=== PATIENT | female | born 1995 | race Caucasian/White ===

== ENCOUNTER 2017-01-22 22:51 | Emergency (ER) | payer SELFPAY ==
[2017-01-22] MEDS ORDERED: Ketorolac 60 MG/2 ML SDV IM ONE (23:40)
--- NOTE | 2017-01-22 23:45 | EDM.PDOC ---
ED HPI GENERAL MEDICAL PROBLEM - General Chief Complaint: Headache Stated Complaint: HEADACHES Time Seen by Provider: 01/22/17 23:30 - History of Present Illness INITIAL COMMENTS - FREE TEXT/NARRATIVE: HISTORY AND PHYSICAL: History of present illness: Patient is a 22-year-old female who presents with a loosening history of headaches that come and go for which she is seeing her family doctor in [place] for and used to get him ibuprofen and no presents with a temporal headache that has been ongoing for the last few days. 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 She has no visual changes. Patient says oftentimes she'll take a nap and the headache will get better but it did not happen today. The patient took nothing [id number] for pain today. She has no local provider. She denies . She says she got over her period about a week ago. She says that in the past the headaches don't follow any pattern she has no aura and no association with her menstrual cycle. Review of systems: As per history of present illness and below otherwise all systems reviewed and negative. Past medical history: As per history of present illness and as reviewed below otherwise noncontributory. Surgical history: As per history of present illness and as reviewed below otherwise noncontributory. Social history: No reported history of drug or alcohol abuse. Family history: As per history of present illness and as reviewed below otherwise noncontributory. Physical exam: Gen.: Well-developed well-nourished female who is nontoxic and vital signs of been reviewed by me HEENT: Atraumatic, normocephalic, negative for conjunctival pallor or scleral icterus, mucous membranes moist, throat clear, neck supple, nontender, trachea midline. There is tenderness at palpation of the temporal area and the frontal and maxillary area without any palpable deformities. There is no nuchal rigidity or cervical adenopathy. Lungs: Clear to auscultation, breath sounds equal bilaterally, chest nontender. Heart: S1S2, regular rate and rhythm no overt murmurs Abdomen: Soft, nondistended, nontender. NABS. Pelvis: Deferred Genitourinary: Deferred. Rectal: Deferred. Extremities: Atraumatic, negative for cords or calf pain. Neurovascular unremarkable. Neuro: Awake, alert, oriented. Cranial nerves II through XII unremarkable. Cerebellum unremarkable. Motor and sensory unremarkable throughout. Exam nonfocal. Diagnostics: [] Therapeutics: Toradol I discussed with the patient as the headache is not terribly severe and is not associated with nausea vomiting or any recent trauma it we would treat the symptomatology and I would refer her to our clinic for further evaluation. I asked her to start a journal of her headaches and to return to ER if the symptoms worsen or evolve Impression: Headache Definitive disposition and diagnosis as appropriate pending reevaluation and review of above. Headache Pain Score (Numeric/FACES): 8 - Related Data Allergies Allergy/AdvReac Type Severity Reaction Status Date / Time almond Allergy Rash Verified 01/22/17 23:19 peanut Allergy Swelling Verified 01/22/17 23:18 Home Meds: Home Meds . [No Known Home Meds] 01/22/17 [History] Past Medical History - Past Health History Medical/Surgical History: Denies Medical/Surgical History Social & Family History - Tobacco Use Smoking Status *Q: Never Smoker Second Hand Smoke Exposure: No - Caffeine Use Caffeine Use: Reports: None - Recreational Drug Use Recreational Drug Use: No ED ROS GENERAL - Review of Systems Review Of Systems: ROS reveals no pertinent complaints other than HPI. ED EXAM, GENERAL - Physical Exam Exam: See Below (See dictation) Course - Vital Signs Last Recorded V/S: Last Vital Signs Temp 36.5 C 01/22/17 23:13 Pulse 103 H 01/22/17 23:13 Resp 18 01/22/17 23:13 BP 126/77 01/22/17 23:13 Pulse Ox 98 01/22/17 23:13 - Orders/Labs/Meds Meds: Medications Discontinued Medications Generic Name Dose Route Start Last Admin Trade Name Freq PRN Reason Stop Dose Admin Ketorolac Tromethamine 60 mg 01/22/17 23:40 Toradol IM 01/22/17 23:41 ONETIME ONE Departure - Departure Time of Disposition: 23:44 Disposition: Home, Self-Care 01 Condition: Good Clinical Impression: Headache Qualifiers: Headache type: unspecified Headache chronicity pattern: acute headache Intractability: not intractable Qualified Code(s): R51 - Headache - Discharge Information Referrals: PCP,None [Primary Care Provider] - Additional Instructions: The following information is given to patients seen in the emergency department who are being discharged to home. This information is to outline your options for follow-up care. We provide all patients seen in our emergency department with a follow-up referral. The need for follow-up, as well as the timing and circumstances, are variable depending upon the specifics of your emergency department visit. If you don't have a primary care physician on staff, we will provide you with a referral. We always advise you to contact your personal physician following an emergency department visit to inform them of the circumstance of the visit and for follow-up with them and/or the need for any referrals to a consulting specialist. The emergency department will also refer you to a specialist when appropriate. This referral assures that you have the opportunity for followup care with a specialist. All of these measure are taken in an effort to provide you with optimal care, which includes your followup. Under all circumstances we always encourage you to contact your private physician who remains a resource for coordinating your care. When calling for followup care, please make the office aware that this follow-up is from your recent emergency room visit. If for any reason you are refused follow-up, please contact the [facility] emergency department at and ask to speak to the emergency department charge nurse. [facility] Primary care- Internal Medicine and Family [address] [address] Please call the clinic tomorrow to get a follow-up appointment as we discussed. Please use medications as prescribed from [facility], Naprosyn and tramadol, rest and hydrate. Return to ER as needed and as discussed
== END 2017-01-22 23:55 | disposition home or self-care (01) ==
LOC: MW.ED 22:51
DX: R51 Headache (principal); Z91.010 Allergy to peanuts; Z91.018 Allergy to other foods
CPT/HCPCS: 96372; 99283; J1885; 99282

== ENCOUNTER 2017-03-22 18:38 | Emergency (ER) | payer SELFPAY ==
--- NOTE | 2017-03-22 19:42 | EDM.PDOC ---
ED HPI GENERAL MEDICAL PROBLEM - General Chief Complaint: Abdominal Pain Stated Complaint: ABDOMINAL PAIN Time Seen by Provider: 03/22/17 19:31 - History of Present Illness INITIAL COMMENTS - FREE TEXT/NARRATIVE: HISTORY AND PHYSICAL: History of present illness: The patient is a 22-year-old female who presents with right lower quadrant pain that started last evening. Patient says it started suddenly while she was having sexual intercourse and since that time she has not had any fevers chills flank pain and urinary complaints or vaginal bleeding or vaginal spotting. She' s not had anorexia and has been eating normally. The patient has not had any vomiting or diarrhea and has no gynecologic history that she is aware of. She has no STD risks. Patient says the pain has been persistent and it waxes and wanes in intensity and she has not taken much for the pain [id number]. Patient says the pain does not radiate and is only in the right lower quadrant. Patient says she has had normal bowel movements and she has had regular periods. Review of systems: As per history of present illness and below otherwise all systems reviewed and negative. Past medical history: As per history of present illness and as reviewed below otherwise noncontributory. Surgical history: As per history of present illness and as reviewed below otherwise noncontributory. Social history: No reported history of drug or alcohol abuse. Family history: As per history of present illness and as reviewed below otherwise noncontributory. Physical exam: Gen.: Well-developed well-nourished female who is nontoxic and speaking clearly in the ED. Vital signs were noted by me. HEENT: Atraumatic, normocephalic, negative for conjunctival pallor or scleral icterus, mucous membranes moist, throat clear, neck supple, nontender, trachea midline. Lungs: Clear to auscultation, breath sounds equal bilaterally, chest nontender. Heart: S1S2, regular rate and rhythm no overt murmurs Abdomen: Soft, nondistended, with mild tenderness to moderate tenderness on deep palpation in the right lower quadrant without rebound or guarding. The remainder of the abdomen is without tenderness on palpation and the bowel sounds are normoactive Negative for costovertebral tenderness. Pelvis: Stable nontender. Genitourinary: Deferred. Rectal: Deferred. Extremities: Atraumatic, negative for cords or calf pain. Neurovascular unremarkable. Neuro: Awake, alert, oriented. Cranial nerves II through XII unremarkable. Cerebellum unremarkable. Motor and sensory unremarkable throughout. Exam nonfocal. Diagnostics: CBC CMP UA UCG pelvic ultrasound Therapeutics: Toradol if UCG negative There is some delays with getting the ultrasound performed but I have received those results and the patient is aware of them. She is also aware of all other testing results. She said that the Toradol has helped her pain and it is pretty much gone. I've offered her CT scan as there are no significant findings to explain her right lower abdominal pain and her appendix is still an option although her history and testing to this point does not support that. The patient would like to defer the CAT scan at that time and return if the pain returns or worsens. I've given her reasons to return to the ED and have advised her to return if any of those things occur. She is aware of my concerns and accepts them but would like to go. Impression: Right lower quadrant pain etiology unclear improved Definitive disposition and diagnosis as appropriate pending reevaluation and review of above. Right Lower Abdomen Pain Score (Numeric/FACES): 8 - Related Data Allergies Allergy/AdvReac Type Severity Reaction Status Date / Time almond Allergy Rash Verified 03/22/17 19:24 peanut Allergy Swelling Verified 03/22/17 19:24 Home Meds: Home Meds . [No Known Home Meds] 01/22/17 [History] Past Medical History - Past Health History Medical/Surgical History: Denies Medical/Surgical History Musculoskeletal History: Reports: Other (See Below) Other Musculoskeletal History: L knee fluid removal Social & Family History - Tobacco Use Smoking Status *Q: Never Smoker Second Hand Smoke Exposure: No - Caffeine Use Caffeine Use: Reports: Soda - Recreational Drug Use Recreational Drug Use: Yes Drug Use in Last 12 Months: Yes Recreational Drug Type: Reports: Marijuana/Hashish Recreational Drug Use Frequency: Daily Recreational Drug Last Use: 03/20 ED ROS GENERAL - Review of Systems Review Of Systems: ROS reveals no pertinent complaints other than HPI. ED EXAM, GENERAL - Physical Exam Exam: See Below (See dictation) Course - Vital Signs Last Recorded V/S: Last Vital Signs Temp 36.2 C 03/22/17 19:22 Pulse 88 03/22/17 19:22 Resp 12 03/22/17 19:22 BP 119/74 03/22/17 19:22 Pulse Ox 98 03/22/17 19:22 - Orders/Labs/Meds Orders: Active Orders 24 hr Category Date Time Status Pelvis Non OB Comp [US] Stat Exams 03/22/17 19:39 Taken Labs: Laboratory Tests 03/22/17 03/22/17 03/22/17 Range/Units 19:52 19:52 20:20 WBC 7.29 (4.0-11.0) K/uL RBC 4.73 (4.30-5.90) M/uL Hgb 13.5 (12.0-16.0) g/dL Hct 39.7 (36.0-46.0) % MCV 83.9 (80.0-98.0) fL MCH 28.5 (27.0-32.0) pg MCHC 34.0 (31.0-37.0) g/dL RDW Std Deviation 38.7 (28.0-62.0) fl RDW Coeff of Robert 13 (11.0-15.0) % Plt Count 329 (150-400) K/uL MPV 10.40 (7.40-12.00) fL Neut % (Auto) 55.5 (48.0-80.0) % Lymph % (Auto) 38.1 (16.0-40.0) % [place] % (Auto) 5.5 (0.0-15.0) % Eos % (Auto) 0.4 (0.0-7.0) % Baso % (Auto) 0.5 (0.0-1.5) % Neut # (Auto) 4.0 (1.4-5.7) K/uL Lymph # (Auto) 2.8 H (0.6-2.4) K/uL [place] # (Auto) 0.4 (0.0-0.8) K/uL Eos # (Auto) 0.0 (0.0-0.7) K/uL Baso # (Auto) 0.0 (0.0-0.1) K/uL Nucleated RBC % 0.0 /100WBC Nucleated RBCs # 0 K/uL Sodium (136-146) mmol/L Potassium (3.5-5.1) mmol/L Chloride (98-110) mmol/L Carbon Dioxide (21-31) mmol/L BUN (6.0-23.0) mg/dL Creatinine (0.6-1.5) mg/dL Est Cr Clr Drug Dosing mL/min Estimated GFR (MDRD) ml/min Glucose (60-110) mg/dL Calcium (8.8-10.8) mg/dL Total Bilirubin (0.1-1.5) mg/dL AST (5-40) IU/L ALT (8-54) IU/L Alkaline Phosphatase (40-150) Total Protein (6.0-8.0) g/dL Albumin (3.5-5.0) g/dL Globulin (2.0-3.5) g/dL Albumin/Globulin Ratio (1.3-2.8) Urine Color YELLOW Urine Appearance CLEAR Urine pH 6.0 (5.0-8.0) Ur Specific [place] <= 1.005 (1.001-1.035) Urine Protein NEGATIVE (NEGATIVE) mg/dL Urine Glucose (UA) NEGATIVE (NEGATIVE) mg/dL Urine Ketones 15 H (NEGATIVE) mg/dL Urine Occult Blood NEGATIVE (NEGATIVE) Urine Nitrite NEGATIVE (NEGATIVE) Urine Bilirubin NEGATIVE (NEGATIVE) Urine Urobilinogen 0.2 (<2.0) EU/dL Ur Leukocyte Esterase NEGATIVE (NEGATIVE) Urine RBC 0-1 (0-2/HPF) Urine WBC 0-1 (0-5/HPF) Ur Epithelial Cells RARE (NONE-FEW) Urine Bacteria RARE (NEGATIVE) Urine HCG, Qual NEGATIVE (NEGATIVE) 03/22/17 Range/Units 20:20 WBC (4.0-11.0) K/uL RBC (4.30-5.90) M/uL Hgb (12.0-16.0) g/dL Hct (36.0-46.0) % MCV (80.0-98.0) fL MCH (27.0-32.0) pg MCHC (31.0-37.0) g/dL RDW Std Deviation (28.0-62.0) fl RDW Coeff of Robert (11.0-15.0) % Plt Count (150-400) K/uL MPV (7.40-12.00) fL Neut % (Auto) (48.0-80.0) % Lymph % (Auto) (16.0-40.0) % [place] % (Auto) (0.0-15.0) % Eos % (Auto) (0.0-7.0) % Baso % (Auto) (0.0-1.5) % Neut # (Auto) (1.4-5.7) K/uL Lymph # (Auto) (0.6-2.4) K/uL [place] # (Auto) (0.0-0.8) K/uL Eos # (Auto) (0.0-0.7) K/uL Baso # (Auto) (0.0-0.1) K/uL Nucleated RBC % /100WBC Nucleated RBCs # K/uL Sodium 138 (136-146) mmol/L Potassium 3.6 (3.5-5.1) mmol/L Chloride 104 (98-110) mmol/L Carbon Dioxide 24 (21-31) mmol/L BUN 9 (6.0-23.0) mg/dL Creatinine 0.7 (0.6-1.5) mg/dL Est Cr Clr Drug Dosing 101.39 mL/min Estimated GFR (MDRD) > 60.0 ml/min Glucose 74 (60-110) mg/dL Calcium 9.5 (8.8-10.8) mg/dL Total Bilirubin 0.5 (0.1-1.5) mg/dL AST 17 (5-40) IU/L ALT 13 (8-54) IU/L Alkaline Phosphatase 59 (40-150) Total Protein 7.1 (6.0-8.0) g/dL Albumin 4.4 (3.5-5.0) g/dL Globulin 2.7 (2.0-3.5) g/dL Albumin/Globulin Ratio 1.6 (1.3-2.8) Urine Color Urine Appearance Urine pH (5.0-8.0) Ur Specific [place] (1.001-1.035) Urine Protein (NEGATIVE) mg/dL Urine Glucose (UA) (NEGATIVE) mg/dL Urine Ketones (NEGATIVE) mg/dL Urine Occult Blood (NEGATIVE) Urine Nitrite (NEGATIVE) Urine Bilirubin (NEGATIVE) Urine Urobilinogen (<2.0) EU/dL Ur Leukocyte Esterase (NEGATIVE) Urine RBC (0-2/HPF) Urine WBC (0-5/HPF) Ur Epithelial Cells (NONE-FEW) Urine Bacteria (NEGATIVE) Urine HCG, Qual (NEGATIVE) Meds: Medications Discontinued Medications Generic Name Dose Route Start Last Admin Trade Name Rosa PRN Reason Stop Dose Admin Ketorolac Tromethamine 60 mg 03/22/17 20:17 03/22/17 20:34 Toradol IM 03/22/17 20:18 60 mg ONETIME ONE Administration Departure - Departure Time of Disposition: 22:30 Disposition: Home, Self-Care 01 Condition: Good Clinical Impression: Abdominal pain Qualifiers: Abdominal location: right lower quadrant Qualified Code(s): R10.31 - Right lower quadrant pain - Discharge Information Referrals: PCP,None [Primary Care Provider] - Forms: ED Department Discharge Additional Instructions: The following information is given to patients seen in the emergency department who are being discharged to home. This information is to outline your options for follow-up care. We provide all patients seen in our emergency department with a follow-up referral. The need for follow-up, as well as the timing and circumstances, are variable depending upon the specifics of your emergency department visit. If you don't have a primary care physician on staff, we will provide you with a referral. We always advise you to contact your personal physician following an emergency department visit to inform them of the circumstance of the visit and for follow-up with them and/or the need for any referrals to a consulting specialist. The emergency department will also refer you to a specialist when appropriate. This referral assures that you have the opportunity for followup care with a specialist. All of these measure are taken in an effort to provide you with optimal care, which includes your followup. Under all circumstances we always encourage you to contact your private physician who remains a resource for coordinating your care. When calling for followup care, please make the office aware that this follow-up is from your recent emergency room visit. If for any reason you are refused follow-up, please contact the [facility] emergency department at and ask to speak to the emergency department charge nurse. [facility] Primary care- Internal Medicine and Family [address] [address] Push fluids rest and try to avoid caffeinated products junk foods and fast foods. Please return to ER as needed and as discussed. These call and make a follow-up appointment with of our providers in the clinic and use over-the- counter Tylenol or ibuprofen for pain. - My Orders Last 24 Hours: My Active Orders 03/22/17 19:39 Pelvis Non OB Comp [US] Stat - Assessment/Plan Last 24 Hours: My Active Orders 03/22/17 19:39 Pelvis Non OB Comp [US] Stat
[2017-03-22] MEDS ORDERED: Ketorolac 60 MG/2 ML SDV IM ONE (20:17)
[2017-03-22 20:59] LABS: CHLORIDE,CL 104 mmol/L (98-110); SODIUM,NA 138 mmol/L (136-146)
--- NOTE | 2017-03-23 16:10 | US ---
EXAM DATE: 03/22/17 PATIENT'S AGE: 22 Patient: RANDY BOWSER Facility: [place], [place] Site . Site : 1997 Study: US Pelvis [id number] 9:56:33 PM Ordering Physician: Danni Preston Final Report: INDICATION: Right lower quadrant pain TECHNIQUE: Ultrasound pelvis transvaginal. Endovaginal imaging was performed to better visualize the endometrium and ovaries. Real-time sotelo scale sonographic images with spectral and color Doppler imaging of the ovaries were obtained. COMPARISON: None FINDINGS: Uterus: 7.1 x 2.6 x 4 cm. Normal echotexture of the myometrium noted with no masses are seen. Endometrium: 4 mm. No sign of endometrial mass or fluid present. Right ovary: 2.9 x 2.3 x 2.6 cm. The right ovary is normal in appearance and echotexture. Arterial blood flow seen in the right ovary. Left ovary: 2.9 x 2 x 2.7 cm. The left ovary is normal in appearance and echotexture. Arterial blood flow is seen in the left ovary. Cul-de-sac: Trace pelvic ascites is noted. IMPRESSION: 1. Unremarkable pelvic ultrasound. Dictated by Monroe Moe MD @ 03/22/2017 10:19:44 PM Dictated by: Monroe Moe MD @ 03/22/2017 22:19:50 (Electronic Signature) Report Signed by Proxy. YULI
== END 2017-03-22 22:40 | disposition home or self-care (01) ==
LOC: MW.ED 18:38
DX: R10.31 Right lower quadrant pain (principal); Z91.010 Allergy to peanuts; Z91.018 Allergy to other foods
CPT/HCPCS: 36415; 76856; 80053; 81001; 81025; 85025; 96372; 99284; J1885

== ENCOUNTER 2017-09-24 10:03 | Emergency (ER) | payer SELFPAY ==
[2017-09-24] MEDS ORDERED: Sodium Chloride 0.9% 10 ML Syringe FLUSH PRN (10:11)
[2017-09-24] MEDS ORDERED: Sodium Chloride 0.9% 2.5 ML Syringe FLUSH PRN (10:11)
[2017-09-24] MEDS ORDERED: Sodium Chloride 0.9% 1,000 ML IV ONE (10:11)
--- NOTE | 2017-09-24 10:21 | EDM.PDOC ---
ED HPI GENERAL MEDICAL PROBLEM - General Chief Complaint: Gastrointestinal Problem Stated Complaint: DEHYDRATION Time Seen by Provider: 09/24/17 10:19 Source of Information: Reports: Patient History Limitations: Reports: No Limitations - History of Present Illness INITIAL COMMENTS - FREE TEXT/NARRATIVE: HISTORY AND PHYSICAL: History of present illness: Patient is a 22-year-old female who presents to the ED today for vomiting, diarrhea, and chills. She states that all of these symptoms started this morning. She states that she hasn't been able to eat or drink today. She has had 2-3 episodes of vomiting, and one episode of green watery diarrhea. Furthermore, she states that she starting to feel like she has a fever and chills, although she has not checked her temperature at home. Also, she states that she feels like she has a sore throat and has tried cough drops without relief. She states that she has had right upper quadrant abdominal pain for the past week or so that has comes and goes and she states that it seems to be associated with her nausea. She denies cough, shortness of breath, wheezing, chest pressure, or history of heart/lung problems. She denies nasal congestion, ear pain, blood in her stool, increase in flatulence, bloating, headache, or syncope. Review of systems: As per history of present illness and below otherwise all systems reviewed and negative. Past medical history: As per history of present illness and as reviewed below otherwise noncontributory. Surgical history: Denies surgical history Social history: No reported history of drug or alcohol abuse. Family history: As per history of present illness and as reviewed below otherwise noncontributory. Physical exam: General: Patient is lying comfortably on the exam table, shivering but in no acute distress. HEENT: Atraumatic, normocephalic, pupils reactive, negative for conjunctival pallor or scleral icterus, mucous membranes moist, throat clear, neck supple, nontender, trachea midline. Lungs: Clear to auscultation, breath sounds equal bilaterally, chest nontender. Heart: S1S2, regular, negative for clicks, rubs. Abdomen: Mild to moderate pain of the right upper quadrant and epigastric area with guarding to light and deep palpation. Soft, nondistended. Negative for masses or hepatosplenomegaly. Negative for costovertebral tenderness. Negative rebound tenderness. Pelvis: Stable nontender. Genitourinary: Deferred. Rectal: Deferred. Extremities: Atraumatic, Neurovascular unremarkable. Neuro: Awake, alert, oriented. Cranial nerves II through XII unremarkable. Cerebellum unremarkable. Motor and sensory unremarkable throughout. Exam nonfocal. Notes: Diagnostics: CBC, CMP, UA, Rapid strep, hCG Abdomen/pelvis CT Therapeutics: IV normal saline IV zofran 4mg IV famotidine 20mg Impression: Viral gastroenteritis Plan: #1 Drink plenty of small sips of fluid throughout the day, bland food as tolerated #2 Take zofran as needed for nausea/vomiting #3 Follow up with primary care provider #4 Return to ED as needed as discussed. Definitive disposition and diagnosis as appropriate pending reevaluation and review of above. l Abdominal Pain Score (Numeric/FACES): 7 - Related Data Allergies Allergy/AdvReac Type Severity Reaction Status Date / Time almond Allergy Rash Verified 09/24/17 10:14 peanut Allergy Swelling Verified 09/24/17 10:14 Home Meds: Home Meds . [No Known Home Meds] 01/22/17 [History] Past Medical History - Past Health History Medical/Surgical History: Denies Medical/Surgical History Musculoskeletal History: Reports: Other (See Below) Other Musculoskeletal History: L knee fluid removal Social & Family History - Family History Family Medical History: Noncontributory - Tobacco Use Smoking Status *Q: Never Smoker - Caffeine Use Caffeine Use: Reports: None - Recreational Drug Use Recreational Drug Use: Yes Recreational Drug Type: Reports: Marijuana/Hashish Other Recreational Drug Type: 2x daily use ED ROS GENERAL - Review of Systems Review Of Systems: ROS reveals no pertinent complaints other than HPI. ED EXAM, GI/ABD - Physical Exam Exam: See Below (See dictation) Course - Vital Signs Last Recorded V/S: Last Vital Signs Temp 36.7 C 09/24/17 12:28 Pulse 99 09/24/17 12:28 Resp 18 09/24/17 12:28 BP 122/76 09/24/17 12:28 Pulse Ox 92 L 09/24/17 12:28 - Orders/Labs/Meds Orders: Active Orders 24 hr Category Date Time Status CULTURE STREP A CONFIRMATION [RM] Stat Lab 09/24/17 10:45 Results HCG QUALITATIVE,URINE [URCHEM] Stat Lab 09/24/17 10:16 Ordered STREP SCRN A RAPID W CULT CONF [RM] Stat Lab 09/24/17 10:45 Ordered UA W/MICROSCOPIC [URIN] Stat Lab 09/24/17 10:16 Ordered Sodium Chloride 0.9% [Saline Flush] Med 09/24/17 10:11 Active 10 ml FLUSH ASDIRECTED PRN Sodium Chloride 0.9% [Saline Flush] Med 09/24/17 10:11 Active 2.5 ml FLUSH ASDIRECTED PRN Saline Lock Insert [OM.PC] Stat Oth 09/24/17 10:11 Ordered Medication Orders Sodium Chloride (Saline Flush) 10 ml FLUSH ASDIRECTED PRN PRN Reason: Keep Vein Open Last Admin: 09/24/17 10:22 Dose: 10 ml Sodium Chloride (Saline Flush) 2.5 ml FLUSH ASDIRECTED PRN PRN Reason: Keep Vein Open Last Admin: 09/24/17 10:22 Dose: 2.5 ml Labs: Laboratory Tests 09/24/17 09/24/17 09/24/17 Range/Units 10:16 10:16 10:23 WBC 9.80 (4.0-11.0) K/uL RBC 5.06 (4.30-5.90) M/uL Hgb 14.7 (12.0-16.0) g/dL Hct 42.6 (36.0-46.0) % MCV 84.2 (80.0-98.0) fL MCH 29.1 (27.0-32.0) pg MCHC 34.5 (31.0-37.0) g/dL RDW Std Deviation 39.3 (28.0-62.0) fl RDW Coeff of Robert 13 (11.0-15.0) % Plt Count 325 (150-400) K/uL MPV 10.50 (7.40-12.00) fL Neut % (Auto) 64.4 (48.0-80.0) % Lymph % (Auto) 28.5 (16.0-40.0) % Stanly % (Auto) 5.9 (0.0-15.0) % Eos % (Auto) 0.9 (0.0-7.0) % Baso % (Auto) 0.3 (0.0-1.5) % Neut # (Auto) 6.3 H (1.4-5.7) K/uL Lymph # (Auto) 2.8 H (0.6-2.4) K/uL Stanly # (Auto) 0.6 (0.0-0.8) K/uL Eos # (Auto) 0.1 (0.0-0.7) K/uL Baso # (Auto) 0.0 (0.0-0.1) K/uL Nucleated RBC % 0.0 /100WBC Nucleated RBCs # 0 K/uL Sodium (136-145) mmol/L Potassium (3.5-5.1) mmol/L Chloride (98-107) mmol/L Carbon Dioxide (21.0-32.0) mmol/L BUN (7.0-18.0) mg/dL Creatinine (0.6-1.0) mg/dL Est Cr Clr Drug Dosing mL/min Estimated GFR (MDRD) ml/min Glucose (74-106) mg/dL Calcium (8.5-10.1) mg/dL Total Bilirubin (0.2-1.0) mg/dL AST (15-37) IU/L ALT (14-63) IU/L Alkaline Phosphatase (46-116) U/L Total Protein (6.4-8.2) g/dL Albumin (3.4-5.0) g/dL Globulin (2.0-3.5) g/dL Albumin/Globulin Ratio (1.3-2.8) Lipase (73-393) U/L Urine Color YELLOW Urine Appearance CLEAR Urine pH 6.0 (5.0-8.0) Ur Specific [place] 1.020 (1.001-1.035) Urine Protein NEGATIVE (NEGATIVE) mg/dL Urine Glucose (UA) NEGATIVE (NEGATIVE) mg/dL Urine Ketones 40 H (NEGATIVE) mg/dL Urine Occult Blood NEGATIVE (NEGATIVE) Urine Nitrite NEGATIVE (NEGATIVE) Urine Bilirubin NEGATIVE (NEGATIVE) Urine Urobilinogen 0.2 (<2.0) EU/dL Ur Leukocyte Esterase NEGATIVE (NEGATIVE) Urine RBC 0-2 (0-2/HPF) Urine WBC 0-2 (0-5/HPF) Ur Epithelial Cells MANY (NONE-FEW) Urine Bacteria FEW (NEGATIVE) Urine Mucus MODERATE (NONE-MOD) Urine HCG, Qual NEGATIVE (NEGATIVE) 07/16/18 Range/Units 10:23 WBC (4.0-11.0) K/uL RBC (4.30-5.90) M/uL Hgb (12.0-16.0) g/dL Hct (36.0-46.0) % MCV (80.0-98.0) fL MCH (27.0-32.0) pg MCHC (31.0-37.0) g/dL RDW Std Deviation (28.0-62.0) fl RDW Coeff of Robert (11.0-15.0) % Plt Count (150-400) K/uL MPV (7.40-12.00) fL Neut % (Auto) (48.0-80.0) % Lymph % (Auto) (16.0-40.0) % Stanly % (Auto) (0.0-15.0) % Eos % (Auto) (0.0-7.0) % Baso % (Auto) (0.0-1.5) % Neut # (Auto) (1.4-5.7) K/uL Lymph # (Auto) (0.6-2.4) K/uL Stanly # (Auto) (0.0-0.8) K/uL Eos # (Auto) (0.0-0.7) K/uL Baso # (Auto) (0.0-0.1) K/uL Nucleated RBC % /100WBC Nucleated RBCs # K/uL Sodium 138 (136-145) mmol/L Potassium 3.4 L (3.5-5.1) mmol/L Chloride 100 (98-107) mmol/L Carbon Dioxide 26.4 (21.0-32.0) mmol/L BUN 9 (7.0-18.0) mg/dL Creatinine 0.8 (0.6-1.0) mg/dL Est Cr Clr Drug Dosing 88.72 mL/min Estimated GFR (MDRD) > 60.0 ml/min Glucose 107 H (74-106) mg/dL Calcium 9.1 (8.5-10.1) mg/dL Total Bilirubin 0.5 (0.2-1.0) mg/dL AST 16 (15-37) IU/L ALT 19 (14-63) IU/L Alkaline Phosphatase 63 (46-116) U/L Total Protein 7.9 (6.4-8.2) g/dL Albumin 4.3 (3.4-5.0) g/dL Globulin 3.6 H (2.0-3.5) g/dL Albumin/Globulin Ratio 1.2 L (1.3-2.8) Lipase 74 (73-393) U/L Urine Color Urine Appearance Urine pH (5.0-8.0) Ur Specific [place] (1.001-1.035) Urine Protein (NEGATIVE) mg/dL Urine Glucose (UA) (NEGATIVE) mg/dL Urine Ketones (NEGATIVE) mg/dL Urine Occult Blood (NEGATIVE) Urine Nitrite (NEGATIVE) Urine Bilirubin (NEGATIVE) Urine Urobilinogen (<2.0) EU/dL Ur Leukocyte Esterase (NEGATIVE) Urine RBC (0-2/HPF) Urine WBC (0-5/HPF) Ur Epithelial Cells (NONE-FEW) Urine Bacteria (NEGATIVE) Urine Mucus (NONE-MOD) Urine HCG, Qual (NEGATIVE) Meds: Medications Generic Name Dose Route Start Last Admin Trade Name Rosa PRN Reason Stop Dose Admin Sodium Chloride 10 ml 09/24/17 10:11 09/24/17 10:22 Saline Flush FLUSH 10 ml ASDIRECTED PRN Administration Keep Vein Open Sodium Chloride 2.5 ml 09/24/17 10:11 09/24/17 10:22 Saline Flush FLUSH 2.5 ml ASDIRECTED PRN Administration Keep Vein Open Discontinued Medications Generic Name Dose Route Start Last Admin Trade Name Rosa PRN Reason Stop Dose Admin Famotidine 20 mg 09/24/17 12:24 Pepcid IVPUSH 09/24/17 12:25 ONETIME ONE Sodium Chloride 1,000 mls @ 999 mls/hr 09/24/17 10:11 09/24/17 10:22 Normal Saline IV 09/24/17 11:11 999 mls/hr STAT ONE Administration Iopamidol 72 ml 09/24/17 11:32 09/24/17 11:33 Isovue Multipack-370 (76%) IVPUSH 09/24/17 11:33 72 ml ONETIME STA Administration Ondansetron HCl 4 mg 09/24/17 11:25 09/24/17 12:01 Zofran IVPUSH 09/24/17 11:26 4 mg ONETIME ONE Administration Departure - Departure Time of Disposition: 12:36 Disposition: Home, Self-Care 01 Condition: Good Clinical Impression: Viral gastroenteritis - Discharge Information Referrals: PCP,None [Primary Care Provider] - Forms: ED Department Discharge Additional Instructions: The following information is given to patients seen in the emergency department who are being discharged to home. This information is to outline your options for follow-up care. We provide all patients seen in our emergency department with a follow-up referral. The need for follow-up, as well as the timing and circumstances, are variable depending upon the specifics of your emergency department visit. If you don't have a primary care physician on staff, we will provide you with a referral. We always advise you to contact your personal physician following an emergency department visit to inform them of the circumstance of the visit and for follow-up with them and/or the need for any referrals to a consulting specialist. The emergency department will also refer you to a specialist when appropriate. This referral assures that you have the opportunity for follow-up care with a specialist. All of these measure are taken in an effort to provide you with optimal care, which includes your follow-up. Under all circumstances we always encourage you to contact your private physician who remains a resource for coordinating your care. When calling for follow-up care, please make the office aware that this follow-up is from your recent emergency room visit. If for any reason you are refused follow-up, please contact the [facility] Emergency Department at and asked to speak to the emergency department charge nurse. [facility] [address] [place] [id number] [address] [id number] #1 Drink plenty of small sips of fluid throughout the day, bland food as tolerated #2 Take zofran as needed for nausea/vomiting #3 Follow up with primary care provider #4 Return to ED as needed as discussed. - My Orders Last 24 Hours: My Active Orders 09/24/17 10:11 Sodium Chloride 0.9% [Saline Flush] 10 ml FLUSH ASDIRECTED PRN Sodium Chloride 0.9% [Saline Flush] 2.5 ml FLUSH ASDIRECTED PRN Saline Lock Insert [OM.PC] Stat 09/24/17 10:16 HCG QUALITATIVE,URINE [URCHEM] Stat UA W/MICROSCOPIC [URIN] Stat 09/24/17 10:45 CULTURE STREP A CONFIRMATION [RM] Stat STREP SCRN A RAPID W CULT CONF [RM] Stat - Assessment/Plan Last 24 Hours: My Active Orders 09/24/17 10:11 Sodium Chloride 0.9% [Saline Flush] 10 ml FLUSH ASDIRECTED PRN Sodium Chloride 0.9% [Saline Flush] 2.5 ml FLUSH ASDIRECTED PRN Saline Lock Insert [OM.PC] Stat 09/24/17 10:16 HCG QUALITATIVE,URINE [URCHEM] Stat UA W/MICROSCOPIC [URIN] Stat 09/24/17 10:45 CULTURE STREP A CONFIRMATION [RM] Stat STREP SCRN A RAPID W CULT CONF [RM] Stat
[2017-09-24 11:04] LABS: CHLORIDE,CL 100 mmol/L (98-107); SODIUM,NA 138 mmol/L (136-145)
[2017-09-24] MEDS ORDERED: Ondansetron 4 MG/2 ML SDV IVPUSH ONE (11:25)
[2017-09-24] MEDS ORDERED: Iopamidol 755 MG/ML 500 ML Multipack Bottle IVPUSH STA (11:32)
--- NOTE | 2017-09-24 12:19 | CT ---
CT of the abdomen and pelvis with contrast. HISTORY: Pain TECHNIQUE: Axial CT images were obtained of the abdomen and pelvis following administration of 72 mL of Isovue-370 in the right antecubital fossa without complication. Coronal and sagittal reconstructio ns obtained. FINDINGS: The lung bases are clear, no pleural effusion. The liver, spleen, adrenal glands, and pancreas appear normal. The gallbladder is normal. There is no bulky retroperitoneal lymphadenopathy or abdominal ascites. The kidneys enhance and function symmetrically without evidence of obstructive uropathy. The large and small bowel are normal in caliber without evidence of obstruction. No focal pericolonic inflammation or stranding. The urinary bladder is normal. The uterus appears normal. There is a 3.9 x 2.9 cm left ovarian cyst. Small amount of free pelvic fluid is noted, likely physiologic. No suspicious osseous abnormalities identified. IMPRESSION: 1. 3.9 x 2.9 cm left ovarian cyst. 2. Otherwise no acute findings within the abdomen or pelvis.
[2017-09-24] MEDS ORDERED: Famotidine 20 MG/2 ML SDV IVPUSH ONE (12:24)
== END 2017-09-24 12:52 | disposition home or self-care (01) ==
LOC: MW.ED 10:03
DX: A08.4 Viral intestinal infection, unspecified (principal); Z91.010 Allergy to peanuts
CPT/HCPCS: 36415; 74177; 80053; 81001; 81025; 83690; 85025; 87081; 87880; 96361; 96374; 96375; 99284; J2405; J7040; Q9967; J3490

== ENCOUNTER 2017-09-30 06:49 | Emergency (ER) | payer SELFPAY ==
[2017-09-30] MEDS ORDERED: Sodium Chloride 0.9% 1,000 ML IV ONE (07:20)
[2017-09-30] MEDS ORDERED: Ondansetron 4 MG/2 ML SDV IVPUSH ONE (07:20)
[2017-09-30] MEDS ORDERED: Ketorolac 30 MG/ML SDV IVPUSH ONE (07:20)
--- NOTE | 2017-09-30 07:21 | EDM.PDOC ---
ED HPI GENERAL MEDICAL PROBLEM - General Chief Complaint: Abdominal Pain Stated Complaint: ABDOMINAL PAIN Time Seen by Provider: 09/30/17 07:21 Source of Information: Reports: Patient - History of Present Illness INITIAL COMMENTS - FREE TEXT/NARRATIVE: HISTORY AND PHYSICAL: History of present illness: [Patient presents with abdominal pain she rates 5 out of 10 associated with nausea today no vomiting She has had similar symptoms over the last 6 months with food association last night she did eat pizza which increased symptoms, and she does note deep-fried foods also increased symptoms she has had a period of several months where she has been symptom-free She has also noted some constipation problems but is treated herself with over- the-counter symptomatic therapies and has had a large bowel movement this morning She was seen on Sunday 6 days prior with a negative CT of the abdomen and pelvis Currently no fever vomiting chills or sweats no chest pain shortness of breath headache dizziness or palpitation no bowel or urine symptoms at current ] Review of systems: As per history of present illness and below otherwise all systems reviewed and negative. Past medical history: As per history of present illness and as reviewed below otherwise noncontributory. Surgical history: As per history of present illness and as reviewed below otherwise noncontributory. Social history: No reported history of drug or alcohol abuse. Family history: As per history of present illness and as reviewed below otherwise noncontributory. Physical exam: HEENT: Atraumatic, normocephalic, pupils reactive, negative for conjunctival pallor or scleral icterus, mucous membranes moist, throat clear, neck supple, nontender, trachea midline. Lungs: Clear to auscultation, breath sounds equal bilaterally, chest nontender. Heart: S1S2, regular, negative for clicks, rubs, or JVD. Abdomen: Soft, nondistended, tender in right upper quadrant no tenderness of left lower quadrant no guarding or rebound. Negative for masses or hepatosplenomegaly. Negative for costovertebral tenderness. Pelvis: Stable nontender. Genitourinary: Deferred. Rectal: Deferred. Extremities: Atraumatic, negative for cords or calf pain. Neurovascular unremarkable. Neuro: Awake, alert, oriented. Cranial nerves II through XII unremarkable. Cerebellum unremarkable. Motor and sensory unremarkable throughout. Exam nonfocal. Diagnostics: [CBC CMP UA lipase Ultrasound right upper quadrant CT abdomen pelvis with contrast on fileWithin last week HCG Bowel care as explained to the patient with continued [id number] symptomatic therapies Cipro Toradol Reglan l Zofran and [place] were considered however with constipation problems, I feel Reglan and Toradol to be a better choice at this time Patient is referred to general surgery for a HIDA scan testing and further management ] Therapeutics: [ 1 L normal saline bolus Zofran 8 mg IV Toradol 30 mg IV ] Cipro Toradol Reglan Impression: [Abdominal pain] -Patient has a left ovarian cyst on the left ovary Hematuria-patient currently menstruating Definitive disposition and diagnosis as appropriate pending reevaluation and review of above. - Related Data Allergies Allergy/AdvReac Type Severity Reaction Status Date / Time almond Allergy Rash Verified 09/30/17 07:01 peanut Allergy Swelling Verified 09/30/17 07:01 Home Meds: Home Meds Ondansetron [Zofran ODT] 4 mg PO Q6H PRN #10 tab.dis 09/24/17 [Rx] Past Medical History - Past Health History Medical/Surgical History: Denies Medical/Surgical History Respiratory History: Reports: None Musculoskeletal History: Reports: Other (See Below) Other Musculoskeletal History: L knee fluid removal - Infectious Disease History Infectious Disease History: Reports: None Social & Family History - Family History Family Medical History: Noncontributory - Tobacco Use Smoking Status *Q: Never Smoker Second Hand Smoke Exposure: Yes - Caffeine Use Caffeine Use: Reports: Tea - Recreational Drug Use Recreational Drug Use: Yes Drug Use in Last 12 Months: Yes Recreational Drug Type: Reports: Marijuana/Hashish Recreational Drug Use Frequency: Daily ED ROS GENERAL - Review of Systems Review Of Systems: See Below ED EXAM, GENERAL - Physical Exam Exam: See Below Course - Vital Signs Last Recorded V/S: Last Vital Signs Temp 97.9 F 09/30/17 06:56 Pulse 92 09/30/17 06:56 Resp 18 09/30/17 06:56 BP 115/65 09/30/17 06:56 Pulse Ox 97 09/30/17 06:56 - Orders/Labs/Meds Orders: Active Orders 24 hr Category Date Time Status Abdomen Ltd [US] Stat Exams 09/30/17 07:43 Taken HCG QUALITATIVE,URINE [URCHEM] Stat Lab 09/30/17 07:30 Ordered UA W/MICROSCOPIC [URIN] Stat Lab 09/30/17 07:30 Ordered Labs: Laboratory Tests 09/30/17 09/30/17 09/30/17 Range/Units 07:30 07:30 07:32 WBC 6.47 (4.0-11.0) K/uL RBC 4.77 (4.30-5.90) M/uL Hgb 13.7 (12.0-16.0) g/dL Hct 40.7 (36.0-46.0) % MCV 85.3 (80.0-98.0) fL MCH 28.7 (27.0-32.0) pg MCHC 33.7 (31.0-37.0) g/dL RDW Std Deviation 40.6 (28.0-62.0) fl RDW Coeff of Orbert 13 (11.0-15.0) % Plt Count 334 (150-400) K/uL MPV 10.70 (7.40-12.00) fL Neut % (Auto) 60.0 (48.0-80.0) % Lymph % (Auto) 30.9 (16.0-40.0) % [place] % (Auto) 8.2 (0.0-15.0) % Eos % (Auto) 0.6 (0.0-7.0) % Baso % (Auto) 0.3 (0.0-1.5) % Neut # (Auto) 3.9 (1.4-5.7) K/uL Lymph # (Auto) 2.0 (0.6-2.4) K/uL [place] # (Auto) 0.5 (0.0-0.8) K/uL Eos # (Auto) 0.0 (0.0-0.7) K/uL Baso # (Auto) 0.0 (0.0-0.1) K/uL Nucleated RBC % 0.0 /100WBC Nucleated RBCs # 0 K/uL Sodium (136-145) mmol/L Potassium (3.5-5.1) mmol/L Chloride (98-107) mmol/L Carbon Dioxide (21.0-32.0) mmol/L BUN (7.0-18.0) mg/dL Creatinine (0.6-1.0) mg/dL Est Cr Clr Drug Dosing mL/min Estimated GFR (MDRD) ml/min Glucose (74-106) mg/dL Calcium (8.5-10.1) mg/dL Total Bilirubin (0.2-1.0) mg/dL AST (15-37) IU/L ALT (14-63) IU/L Alkaline Phosphatase (46-116) U/L Total Protein (6.4-8.2) g/dL Albumin (3.4-5.0) g/dL Globulin (2.0-3.5) g/dL Albumin/Globulin Ratio (1.3-2.8) Lipase (73-393) U/L Urine Color YELLOW Urine Appearance CLEAR Urine pH 6.0 (5.0-8.0) Ur Specific [place] 1.015 (1.001-1.035) Urine Protein NEGATIVE (NEGATIVE) mg/dL Urine Glucose (UA) NEGATIVE (NEGATIVE) mg/dL Urine Ketones NEGATIVE (NEGATIVE) mg/dL Urine Occult Blood MODERATE (NEGATIVE) Urine Nitrite NEGATIVE (NEGATIVE) Urine Bilirubin NEGATIVE (NEGATIVE) Urine Urobilinogen 0.2 (<2.0) EU/dL Ur Leukocyte Esterase NEGATIVE (NEGATIVE) Urine RBC 1-3 (0-2/HPF) Urine WBC 1-2 (0-5/HPF) Ur Epithelial Cells FEW (NONE-FEW) Urine Bacteria FEW (NEGATIVE) Urine HCG, Qual NEGATIVE (NEGATIVE) 09/30/17 Range/Units 07:32 WBC (4.0-11.0) K/uL RBC (4.30-5.90) M/uL Hgb (12.0-16.0) g/dL Hct (36.0-46.0) % MCV (80.0-98.0) fL MCH (27.0-32.0) pg MCHC (31.0-37.0) g/dL RDW Std Deviation (28.0-62.0) fl RDW Coeff of Robert (11.0-15.0) % Plt Count (150-400) K/uL MPV (7.40-12.00) fL Neut % (Auto) (48.0-80.0) % Lymph % (Auto) (16.0-40.0) % [place] % (Auto) (0.0-15.0) % Eos % (Auto) (0.0-7.0) % Baso % (Auto) (0.0-1.5) % Neut # (Auto) (1.4-5.7) K/uL Lymph # (Auto) (0.6-2.4) K/uL [place] # (Auto) (0.0-0.8) K/uL Eos # (Auto) (0.0-0.7) K/uL Baso # (Auto) (0.0-0.1) K/uL Nucleated RBC % /100WBC Nucleated RBCs # K/uL Sodium 140 (136-145) mmol/L Potassium 3.4 L (3.5-5.1) mmol/L Chloride 104 (98-107) mmol/L Carbon Dioxide 27.2 (21.0-32.0) mmol/L BUN 9 (7.0-18.0) mg/dL Creatinine 0.8 (0.6-1.0) mg/dL Est Cr Clr Drug Dosing 88.72 mL/min Estimated GFR (MDRD) > 60.0 ml/min Glucose 107 H (74-106) mg/dL Calcium 9.0 (8.5-10.1) mg/dL Total Bilirubin 0.1 L (0.2-1.0) mg/dL AST 14 L (15-37) IU/L ALT 16 (14-63) IU/L Alkaline Phosphatase 52 (46-116) U/L Total Protein 7.2 (6.4-8.2) g/dL Albumin 3.9 (3.4-5.0) g/dL Globulin 3.3 (2.0-3.5) g/dL Albumin/Globulin Ratio 1.2 L (1.3-2.8) Lipase 71 L (73-393) U/L Urine Color Urine Appearance Urine pH (5.0-8.0) Ur Specific [place] (1.001-1.035) Urine Protein (NEGATIVE) mg/dL Urine Glucose (UA) (NEGATIVE) mg/dL Urine Ketones (NEGATIVE) mg/dL Urine Occult Blood (NEGATIVE) Urine Nitrite (NEGATIVE) Urine Bilirubin (NEGATIVE) Urine Urobilinogen (<2.0) EU/dL Ur Leukocyte Esterase (NEGATIVE) Urine RBC (0-2/HPF) Urine WBC (0-5/HPF) Ur Epithelial Cells (NONE-FEW) Urine Bacteria (NEGATIVE) Urine HCG, Qual (NEGATIVE) Meds: Medications Discontinued Medications Generic Name Dose Route Start Last Admin Trade Name Rosa PRN Reason Stop Dose Admin Sodium Chloride 1,000 mls @ 999 mls/hr 09/30/17 07:20 09/30/17 07:34 Normal Saline IV 09/30/17 08:20 999 mls/hr STAT ONE Administration Ketorolac Tromethamine 30 mg 09/30/17 07:20 09/30/17 07:37 Toradol IVPUSH 09/30/17 07:21 30 mg ONETIME ONE Administration Ondansetron HCl 8 mg 09/30/17 07:20 09/30/17 07:35 Zofran IVPUSH 09/30/17 07:21 8 mg ONETIME ONE Administration Departure - Departure Time of Disposition: 10:57 Disposition: Home, Self-Care 01 Condition: Good Clinical Impression: Abdominal pain Qualifiers: Abdominal location: right lower quadrant Qualified Code(s): R10.31 - Right lower quadrant pain - Discharge Information Referrals: PCP,None [Primary Care Provider] - Forms: ED Department Discharge Additional Instructions: Bowel care as discussed Continue with fluid hydration MiraLAX daily as needed Reglan which has been prescribed will also help with bowel movement as well as nausea Gas-X may benefit 2-4 times daily Otherwise medication as prescribed Cipro and Toradol ER referral for a HIDA scan testing is ordered with general surgery [facility] - General Surgery [address], [address] [place] [address] The following information is given to patients seen in the emergency department who are being discharged to home. This information is to outline your options for follow-up care. We provide all patients seen in our emergency department with a follow-up referral. The need for follow-up, as well as the timing and circumstances, are variable depending upon the specifics of your emergency department visit. If you don't have a primary care physician on staff, we will provide you with a referral. We always advise you to contact your personal physician following an emergency department visit to inform them of the circumstance of the visit and for follow-up with them and/or the need for any referrals to a consulting specialist. The emergency department will also refer you to a specialist when appropriate. This referral assures that you have the opportunity for follow-up care with a specialist. All of these measure are taken in an effort to provide you with optimal care, which includes your follow-up. Under all circumstances we always encourage you to contact your private physician who remains a resource for coordinating your care. When calling for follow-up care, please make the office aware that this follow-up is from your recent emergency room visit. If for any reason you are refused follow-up, please contact the [facility] emergency department at and asked to speak to the emergency department charge nurse. - My Orders Last 24 Hours: My Active Orders 09/30/17 07:30 HCG QUALITATIVE,URINE [URCHEM] Stat UA W/MICROSCOPIC [URIN] Stat 09/30/17 07:43 Abdomen Ltd [US] Stat - Assessment/Plan Last 24 Hours: My Active Orders 09/30/17 07:30 HCG QUALITATIVE,URINE [URCHEM] Stat UA W/MICROSCOPIC [URIN] Stat 09/30/17 07:43 Abdomen Ltd [US] Stat
[2017-09-30 08:29] LABS: CHLORIDE,CL 104 mmol/L (98-107); SODIUM,NA 140 mmol/L (136-145)
--- NOTE | 2017-10-01 13:44 | US ---
EXAM DATE: 09/30/17 PATIENT'S AGE: 22 Patient: RANDY BOWSER Facility: [place], [place] Site . Site : 1995 Study: US Abdomen [id number] 9:51:30 AM Ordering Physician: Juan David Ma Final Report: INDICATION: pain HISTORY: Abdominal pain. COMPARISON: None. TECHNIQUE: Ultrasound of the abdomen limited. FINDINGS: Pancreas is normal where visualized. No peripancreatic fluid collections are seen. Abdominal aorta and IVC are normal on grayscale imaging. There is no solid hepatic mass. Hepatic morphology is normal. No dilation of intrahepatic biliary radicals. There is no perihepatic ascites. Liver measures 15.4 cm in length. This is within normal limits. Main portal vein is patent. No inflammatory changes about the gallbladder. No shadowing calculi. Negative sonographic Bravo`s sign. The extrahepatic common duct measures 2 mm at the maxine hepatis. The right kidney measures 9.9 cm in length. No hydronephrosis or solid mass. No perinephric fluid collection. IMPRESSION: No findings are seen to explain the patient`s symptoms. Dictated by Jamal Richard MD @ 09/30/2017 10:17:16 AM Dictated by: Jamal Richard MD @ 09/30/2017 10:17:25 (Electronic Signature) Report Signed by Proxy. [facility]
== END 2017-09-30 11:15 | disposition home or self-care (01) ==
LOC: MW.ED 06:49
DX: N83.202 Unspecified ovarian cyst, left side (principal); Z91.018 Allergy to other foods
CPT/HCPCS: 36415; 76705; 80053; 81001; 81025; 83690; 85025; 96361; 96374; 96375; 99284; J1885; J2405; J7040

== ENCOUNTER 2017-11-08 09:13 | Emergency (ER) | payer SELFPAY ==
[2017-11-08] MEDS ORDERED: Pantoprazole 40 MG Vial IVPUSH ONE (09:36)
[2017-11-08] MEDS ORDERED: Ketorolac 30 MG/ML SDV IVPUSH ONE (09:36)
[2017-11-08] MEDS ORDERED: Ondansetron 4 MG/2 ML SDV IVPUSH ONE (09:36)
[2017-11-08] MEDS ORDERED: Sodium Chloride 0.9% 1,000 ML IV ONE (09:36)
[2017-11-08] MEDS ORDERED: Sodium Chloride 0.9% 10 ML Syringe FLUSH PRN (09:37)
[2017-11-08] MEDS ORDERED: Sodium Chloride 0.9% 2.5 ML Syringe FLUSH PRN (09:37)
--- NOTE | 2017-11-08 09:41 | EDM.PDOC ---
ED HPI GENERAL MEDICAL PROBLEM - General Chief Complaint: Abdominal Pain Stated Complaint: ABD PAIN Time Seen by Provider: 11/08/17 09:25 - History of Present Illness INITIAL COMMENTS - FREE TEXT/NARRATIVE: HISTORY AND PHYSICAL: History of present illness: The patient is a 22-year-old female who presents with recurrent nausea and one watery green stool this morning that has been ongoing for the last 24 hours. The patient has been seen here in our emergency department on September 30 for abdominal pain and had a abdominal ultrasound which revealed no gallstones and no abnormalities. She was referred to Dr. Rubi who saw her in the clinic and she had a HIDA scan on October 02 which revealed borderline function of 33%. It was discussed by the patient with Dr. Rubi that she would do symptomatic care i.e. a low-fat diet and some natural [id number] meds to try to help with her pain and this biliary dyskinesia and she has been doing well. She says she has not been eating normally and has been eating only small amounts and has had some weight loss over the last few weeks. The patient has not had a fever chills vomiting until yesterday when she started having extreme nausea and upper abdominal pain more in the epigastric area. She says she has had pressure in the upper abdomen since she was seen here but it seemed to get worse last night and into today. She has not had any vomiting and she initially was constipated and then at 5:00 this morning had a liquidy green stool without black or blood. Currently she stating she is mostly nauseated and has his upper abdominal pain and it does not localize right or left. She is currently on her period and denies . She has no urinary complaints of flank pain and no upper respiratory symptoms. The patient does admit to smoking marijuana and has no other social history. She says that a week or so ago he stopped taking the natural meds because she wanted to try to eat more normally and is concerned that may have caused this. Her family at bedside is concerned about her weight loss because she has not been eating at her normal baseline. Review of systems: As per history of present illness and below otherwise all systems reviewed and negative. Past medical history: As per history of present illness and as reviewed below otherwise noncontributory. Surgical history: As per history of present illness and as reviewed below otherwise noncontributory. Social history: No reported history of drug or alcohol abuse. Family history: As per history of present illness and as reviewed below otherwise noncontributory. Physical exam: General: Well-developed well-nourished thin female who is nontoxic and moves easily in the ED without distress. Vital signs are noted by the HEENT: Atraumatic, normocephalic, negative for conjunctival pallor or scleral icterus, mucous membranes moist, throat clear, neck supple, nontender, trachea midline. Lungs: Clear to auscultation, breath sounds equal bilaterally, chest nontender. Heart: S1S2, regular rate and rhythm no overt murmurs Abdomen: Soft, nondistended, mild tenderness in the epigastric area but no right upper or left upper quadrant tenderness Negative for masses or hepatosplenomegaly. Slightly hypoactive bowel sounds Pelvis: Stable nontender. Genitourinary: Deferred. Rectal: Deferred. Extremities: Atraumatic, negative for cords or calf pain. Neurovascular unremarkable. Neuro: Awake, alert, oriented. Cranial nerves II through XII unremarkable. Cerebellum unremarkable. Motor and sensory unremarkable throughout. Exam nonfocal. Diagnostics: CBC CMP amylase lipase H. pylori magnesium level UA UCG Prior scans and imaging have been reviewed by me Therapeutics: IV fluids Protonix Zofran Toradol Patient is feeling better and is taking a popsicle. She is aware of all testing results being negative and I have contacted Dr. Rubi at 10:48 AM inform them of this patient's visit. He agrees that he needs to see her in the clinic and will likely need to remove her gallbladder and wants her to call for an appointment next week. I will give her Zofran for home as she has Reglan and cautioned her on reasons to return Impression: Upper abdominal pain/biliary dyskinesia with history of same Definitive disposition and diagnosis as appropriate pending reevaluation and review of above. Right Upper abdominal pain Pain Score (Numeric/FACES): 4 - Related Data Allergies Allergy/AdvReac Type Severity Reaction Status Date / Time almond Allergy Rash Verified 11/08/17 09:26 peanut Allergy Swelling Verified 11/08/17 09:26 Home Meds: Home Meds Clr 11/08/17 [History] Nessa Root [Nessa] 250 mg PO DAILY 11/08/17 [History] Past Medical History - Past Health History Medical/Surgical History: Denies Medical/Surgical History Respiratory History: Reports: None Musculoskeletal History: Reports: Other (See Below) Other Musculoskeletal History: L knee fluid removal - Infectious Disease History Infectious Disease History: Reports: None Social & Family History - Family History Family Medical History: Noncontributory - Caffeine Use Caffeine Use: Reports: Tea ED ROS GENERAL - Review of Systems Review Of Systems: ROS reveals no pertinent complaints other than HPI. ED EXAM, GENERAL - Physical Exam Exam: See Below (See dictation) Course - Vital Signs Last Recorded V/S: Last Vital Signs Temp 36.6 C 11/08/17 09:38 Pulse 74 11/08/17 09:38 Resp 18 11/08/17 09:38 BP 117/79 11/08/17 09:38 Pulse Ox 99 11/08/17 09:38 - Orders/Labs/Meds Orders: Active Orders 24 hr Category Date Time Status HCG QUALITATIVE,URINE [URCHEM] Stat Lab 11/08/17 09:51 Ordered UA W/MICROSCOPIC [URIN] Stat Lab 11/08/17 09:51 Ordered Sodium Chloride 0.9% [Saline Flush] Med 11/08/17 09:37 Active 10 ml FLUSH ASDIRECTED PRN Sodium Chloride 0.9% [Saline Flush] Med 11/08/17 09:37 Active 2.5 ml FLUSH ASDIRECTED PRN Saline Lock Insert [OM.PC] Stat Oth 11/08/17 09:36 Ordered Medication Orders Sodium Chloride (Saline Flush) 10 ml FLUSH ASDIRECTED PRN PRN Reason: Keep Vein Open Last Admin: 11/08/17 09:50 Dose: 10 ml Sodium Chloride (Saline Flush) 2.5 ml FLUSH ASDIRECTED PRN PRN Reason: Keep Vein Open Last Admin: 11/08/17 09:50 Dose: 2.5 ml Labs: Laboratory Tests 11/08/17 11/08/17 11/08/17 Range/Units 09:43 09:43 09:43 WBC 5.89 (4.0-11.0) K/uL RBC 4.99 (4.30-5.90) M/uL Hgb 14.6 (12.0-16.0) g/dL Hct 42.5 (36.0-46.0) % MCV 85.2 (80.0-98.0) fL MCH 29.3 (27.0-32.0) pg MCHC 34.4 (31.0-37.0) g/dL RDW Std Deviation 40.7 (28.0-62.0) fl RDW Coeff of Robert 13 (11.0-15.0) % Plt Count 352 (150-400) K/uL MPV 10.30 (7.40-12.00) fL Neut % (Auto) 62.0 (48.0-80.0) % Lymph % (Auto) 28.5 (16.0-40.0) % [place] % (Auto) 8.3 (0.0-15.0) % Eos % (Auto) 0.7 (0.0-7.0) % Baso % (Auto) 0.5 (0.0-1.5) % Neut # (Auto) 3.7 (1.4-5.7) K/uL Lymph # (Auto) 1.7 (0.6-2.4) K/uL [place] # (Auto) 0.5 (0.0-0.8) K/uL Eos # (Auto) 0.0 (0.0-0.7) K/uL Baso # (Auto) 0.0 (0.0-0.1) K/uL Nucleated RBC % 0.0 /100WBC Nucleated RBCs # 0 K/uL Sodium 139 (136-145) mmol/L Potassium 3.9 (3.5-5.1) mmol/L Chloride 102 (98-107) mmol/L Carbon Dioxide 25.5 (21.0-32.0) mmol/L BUN 9 (7.0-18.0) mg/dL Creatinine 0.6 (0.6-1.0) mg/dL Est Cr Clr Drug Dosing 118.29 mL/min Estimated GFR (MDRD) > 60.0 ml/min Glucose 96 (74-106) mg/dL Calcium 9.5 (8.5-10.1) mg/dL Magnesium 1.9 (1.8-2.4) mg/dL Total Bilirubin 0.4 (0.2-1.0) mg/dL AST 14 L (15-37) IU/L ALT 16 (14-63) IU/L Alkaline Phosphatase 56 (46-116) U/L Total Protein 7.6 (6.4-8.2) g/dL Albumin 4.2 (3.4-5.0) g/dL Globulin 3.4 (2.0-3.5) g/dL Albumin/Globulin Ratio 1.2 L (1.3-2.8) Amylase 51 (25-115) U/L Lipase 73 (73-393) U/L Urine Color Urine Appearance Urine pH (5.0-8.0) Ur Specific [place] (1.001-1.035) Urine Protein (NEGATIVE) mg/dL Urine Glucose (UA) (NEGATIVE) mg/dL Urine Ketones (NEGATIVE) mg/dL Urine Occult Blood (NEGATIVE) Urine Nitrite (NEGATIVE) Urine Bilirubin (NEGATIVE) Urine Urobilinogen (<2.0) EU/dL Ur Leukocyte Esterase (NEGATIVE) Urine RBC (0-2/HPF) Urine WBC (0-5/HPF) Ur Epithelial Cells (NONE-FEW) Urine Bacteria (NEGATIVE) Urine HCG, Qual (NEGATIVE) H. pylori IgG Antibody NEGATIVE (NEG) 11/08/17 11/08/17 Range/Units 09:51 09:51 WBC (4.0-11.0) K/uL RBC (4.30-5.90) M/uL Hgb (12.0-16.0) g/dL Hct (36.0-46.0) % MCV (80.0-98.0) fL MCH (27.0-32.0) pg MCHC (31.0-37.0) g/dL RDW Std Deviation (28.0-62.0) fl RDW Coeff of Robert (11.0-15.0) % Plt Count (150-400) K/uL MPV (7.40-12.00) fL Neut % (Auto) (48.0-80.0) % Lymph % (Auto) (16.0-40.0) % [place] % (Auto) (0.0-15.0) % Eos % (Auto) (0.0-7.0) % Baso % (Auto) (0.0-1.5) % Neut # (Auto) (1.4-5.7) K/uL Lymph # (Auto) (0.6-2.4) K/uL [place] # (Auto) (0.0-0.8) K/uL Eos # (Auto) (0.0-0.7) K/uL Baso # (Auto) (0.0-0.1) K/uL Nucleated RBC % /100WBC Nucleated RBCs # K/uL Sodium (136-145) mmol/L Potassium (3.5-5.1) mmol/L Chloride (98-107) mmol/L Carbon Dioxide (21.0-32.0) mmol/L BUN (7.0-18.0) mg/dL Creatinine (0.6-1.0) mg/dL Est Cr Clr Drug Dosing mL/min Estimated GFR (MDRD) ml/min Glucose (74-106) mg/dL Calcium (8.5-10.1) mg/dL Magnesium (1.8-2.4) mg/dL Total Bilirubin (0.2-1.0) mg/dL AST (15-37) IU/L ALT (14-63) IU/L Alkaline Phosphatase (46-116) U/L Total Protein (6.4-8.2) g/dL Albumin (3.4-5.0) g/dL Globulin (2.0-3.5) g/dL Albumin/Globulin Ratio (1.3-2.8) Amylase (25-115) U/L Lipase (73-393) U/L Urine Color YELLOW Urine Appearance CLEAR Urine pH 6.0 (5.0-8.0) Ur Specific [place] <= 1.005 (1.001-1.035) Urine Protein NEGATIVE (NEGATIVE) mg/dL Urine Glucose (UA) NEGATIVE (NEGATIVE) mg/dL Urine Ketones NEGATIVE (NEGATIVE) mg/dL Urine Occult Blood SMALL H (NEGATIVE) Urine Nitrite NEGATIVE (NEGATIVE) Urine Bilirubin NEGATIVE (NEGATIVE) Urine Urobilinogen 0.2 (<2.0) EU/dL Ur Leukocyte Esterase NEGATIVE (NEGATIVE) Urine RBC 0-1 (0-2/HPF) Urine WBC 0-1 (0-5/HPF) Ur Epithelial Cells RARE (NONE-FEW) Urine Bacteria RARE (NEGATIVE) Urine HCG, Qual NEGATIVE (NEGATIVE) H. pylori IgG Antibody (NEG) Meds: Medications Generic Name Dose Route Start Last Admin Trade Name Freq PRN Reason Stop Dose Admin Sodium Chloride 10 ml 11/08/17 09:37 11/08/17 09:50 Saline Flush FLUSH 10 ml ASDIRECTED PRN Administration Keep Vein Open Sodium Chloride 2.5 ml 11/08/17 09:37 11/08/17 09:50 Saline Flush FLUSH 2.5 ml ASDIRECTED PRN Administration Keep Vein Open Discontinued Medications Generic Name Dose Route Start Last Admin Trade Name Freq PRN Reason Stop Dose Admin Sodium Chloride 1,000 mls @ 999 mls/hr 11/08/17 09:36 11/08/17 09:50 Normal Saline IV 11/08/17 10:36 999 mls/hr STAT ONE Administration Ketorolac Tromethamine 30 mg 11/08/17 09:36 11/08/17 09:50 Toradol IVPUSH 11/08/17 09:37 30 mg ONETIME ONE Administration Ondansetron HCl 4 mg 11/08/17 09:36 11/08/17 09:50 Zofran IVPUSH 11/08/17 09:37 4 mg ONETIME ONE Administration Pantoprazole Sodium 80 mg 11/08/17 09:36 11/08/17 09:50 Protonix Iv IVPUSH 11/08/17 09:37 80 mg .BOLUS ONE Administration Departure - Departure Time of Disposition: 10:51 Disposition: Home, Self-Care 01 Condition: Good Clinical Impression: Biliary dyskinesia Abdominal pain Qualifiers: Abdominal location: epigastric Qualified Code(s): R10.13 - Epigastric pain - Discharge Information Referrals: PCP,None [Primary Care Provider] - Forms: ED Department Discharge Additional Instructions: The following information is given to patients seen in the emergency department who are being discharged to home. This information is to outline your options for follow-up care. We provide all patients seen in our emergency department with a follow-up referral. The need for follow-up, as well as the timing and circumstances, are variable depending upon the specifics of your emergency department visit. If you don't have a primary care physician on staff, we will provide you with a referral. We always advise you to contact your personal physician following an emergency department visit to inform them of the circumstance of the visit and for follow-up with them and/or the need for any referrals to a consulting specialist. The emergency department will also refer you to a specialist when appropriate. This referral assures that you have the opportunity for followup care with a specialist. All of these measure are taken in an effort to provide you with optimal care, which includes your followup. Under all circumstances we always encourage you to contact your private physician who remains a resource for coordinating your care. When calling for followup care, please make the office aware that this follow-up is from your recent emergency room visit. If for any reason you are refused follow-up, please contact the [facility] emergency department at and ask to speak to the emergency department charge nurse. [facility] [address] [place] [id number] Please call and schedule a follow-up appointment with Dr. Rubi telling his nurse that he knows about you and will see you next week. Please continue with a low-fat diet and Zofran and Protonix as prescribed. Return to ER as needed and as discussed. Push hydration - My Orders Last 24 Hours: My Active Orders 11/08/17 09:36 Saline Lock Insert [OM.PC] Stat 11/08/17 09:37 Sodium Chloride 0.9% [Saline Flush] 10 ml FLUSH ASDIRECTED PRN Sodium Chloride 0.9% [Saline Flush] 2.5 ml FLUSH ASDIRECTED PRN 11/08/17 09:51 HCG QUALITATIVE,URINE [URCHEM] Stat UA W/MICROSCOPIC [URIN] Stat - Assessment/Plan Last 24 Hours: My Active Orders 11/08/17 09:36 Saline Lock Insert [OM.PC] Stat 11/08/17 09:37 Sodium Chloride 0.9% [Saline Flush] 10 ml FLUSH ASDIRECTED PRN Sodium Chloride 0.9% [Saline Flush] 2.5 ml FLUSH ASDIRECTED PRN 11/08/17 09:51 HCG QUALITATIVE,URINE [URCHEM] Stat UA W/MICROSCOPIC [URIN] Stat
[2017-11-08 10:25] LABS: CHLORIDE,CL 102 mmol/L (98-107); SODIUM,NA 139 mmol/L (136-145)
== END 2017-11-08 11:06 | disposition home or self-care (01) ==
LOC: MW.ED 09:13
DX: K82.8 Other specified diseases of gallbladder (principal); R10.13 Epigastric pain; Z91.018 Allergy to other foods
CPT/HCPCS: 36415; 80053; 81001; 81025; 82150; 83690; 83735; 85025; 86677; 96361; 96374; 96375; 99283; C9113; J1885; J2405; J7040

== ENCOUNTER 2017-11-23 06:42 | Day surgery (SDC) | payer SELFPAY ==
[~2017-11-23 06:42] MED LIST: Lactated Ringers 1,000 ML IV SCH; cefOXitin 1 GM in Premix Bag 1 BAG IV SCH
[2017-11-23] MEDS ORDERED: Lidocaine 2% 5 ML SDV ONE (07:09)
[2017-11-23] MEDS ORDERED: Midazolam 1 MG/ML 2 ML SDV ONE (07:09)
[2017-11-23] MEDS ORDERED: fentaNYL 250 MCG/5 ML SDV ONE (07:09)
[2017-11-23] MEDS ORDERED: Neostigmine Methylsulfate 1 MG/ML 5 ML Syringe ONE (07:09)
[2017-11-23] MEDS ORDERED: Propofol 200 MG/20 ML SDV ONE (07:09)
[2017-11-23] MEDS ORDERED: Rocuronium 10 MG/ML 10 ML Syringe ONE (07:09)
[2017-11-23] MEDS ORDERED: Glycopyrrolate 0.2 MG/ML SDV ONE (07:09)
[2017-11-23] MEDS ORDERED: Ondansetron 4 MG/2 ML SDV ONE (07:09)
--- NOTE | 2017-11-23 07:18 | PCM.PREANE ---
Preanesthetic Assessment - Anesthesia/Transfusion/Family Hx Anesthesia History: No Prior Anesthesia Family History of Anesthesia Reaction: No Transfusion History: No Prior Transfusion(s) Intubation History: Unknown - Review of Systems General: No Symptoms Pulmonary: No Symptoms Cardiovascular: No Symptoms Gastrointestinal: Abdominal Pain Neurological: No Symptoms Other: Reports: None - Physical Assessment Height: 1.57 m Weight: 53.524 kg ASA Class: 1 Mental Status: Alert & Oriented x3 Airway Class: Mallampati = 1 Dentition: Reports: Normal Dentition Thyro-Mental Finger Breadths: 3 Mouth Opening Finger Breadths: 3 ROM/Head Extension: Full Lungs: Clear to Auscultation, Normal Respiratory Effort Cardiovascular: Regular Rate, Regular Rhythm - Allergies Allergies/Adverse Reactions: Allergies Allergy/AdvReac Type Severity Reaction Status Date / Time almond Allergy Rash Verified 11/21/17 08:16 latex Allergy Rash Verified 11/21/17 08:16 peanut Allergy Swelling Verified 11/21/17 08:16 powder in gloves Allergy Rash Uncoded 11/21/17 08:16 - Blood Blood Available: No - Anesthesia Plan Pre-Op Medication Ordered: None - Acknowledgements Anesthesia Type Planned: General Anesthesia Pt an Appropriate Candidate for the Planned Anesthesia: Yes Alternatives and Risks of Anesthesia Discussed w Pt/Guardian: Yes Pt/Guardian Understands and Agrees with Anesthesia Plan: Yes PreAnesthesia Questionnaire - Past Health History Medical/Surgical History: Denies Medical/Surgical History Respiratory History: Reports: None Gastrointestinal History: Reports: Other (See Below) Other Gastrointestinal History: intermittent epigastric pain and nausea due to gallbladder Musculoskeletal History: Reports: Other (See Below) Other Musculoskeletal History: L knee fluid removal as a child - Infectious Disease History Infectious Disease History: Reports: None - Past Surgical History Head Surgeries/Procedures: Reports: None Musculoskeletal Surgical History: Reports: Other (See Below) (left knee fluid aspiration as child) - SUBSTANCE USE Smoking Status *Q: Never Smoker Recreational Drug Type: Reports: Marijuana/Hashish Recreational Drug Last Use: nov 20, - HOME MEDS Home Medications: Home Meds Ondansetron [Zofran ODT] 4 mg PO TID PRN #10 tab.dis 11/08/17 [Rx] Crl 1 tab PO DAILY 11/21/17 [History] - CURRENT (IN HOUSE) MEDS Current Meds: Current Medications Cefoxitin Sodium 1 gm/ Premix 50 mls @ 100 mls/hr IV ONETIME KEI Lactated Ringer's (Ringers, Lactated) 1,000 mls @ 125 mls/hr IV ASDIRECTED KEI Discontinued Medications Fentanyl (Sublimaze) Confirm Administered Dose 250 mcg .ROUTE .STK-MED ONE Stop: 11/23/17 07:10 Glycopyrrolate (Robinul) Confirm Administered Dose 0.4 mg .ROUTE .STK-MED ONE Stop: 11/23/17 07:10 Lidocaine (Xylocaine-Mpf 2%) Confirm Administered Dose 5 ml .ROUTE .STK-MED ONE Stop: 11/23/17 07:10 Midazolam HCl (Versed 1 Mg/Ml) Confirm Administered Dose 2 mg .ROUTE .STK-MED ONE Stop: 11/23/17 07:10 Neostigmine Methylsulfate (Neostigmine) Confirm Administered Dose 5 mg .ROUTE .STK-MED ONE Stop: 11/23/17 07:10 Ondansetron HCl (Zofran) Confirm Administered Dose 4 mg .ROUTE .STK-MED ONE Stop: 11/23/17 07:10 Propofol (Diprivan 20 Ml) Confirm Administered Dose 200 mg .ROUTE .STK-MED ONE Stop: 11/23/17 07:10 Rocuronium [place] (Zemuron) Confirm Administered Dose 100 mg .ROUTE .STK-MED ONE Stop: 11/23/17 07:10
[2017-11-23] MEDS ORDERED: Scopolamine 1.5 MG Transdermal Patch TRDERM PRN (07:19)
[2017-11-23] MEDS ORDERED: Bupivacaine 0.5% 10 ML SDV ONE ×2 (07:21→07:36)
[2017-11-23] MEDS ORDERED: ceFAZolin 1 GM Vial ONE (07:36)
[2017-11-23] MEDS ORDERED: Sodium Chloride 0.9% 20 ML ONE (08:08)
[2017-11-23] MEDS ORDERED: cefOXitin 1 GM Vial ONE (08:08)
[2017-11-23] MEDS ORDERED: fentaNYL 100 MCG/2 ML SDV IVPUSH PRN (08:38)
[2017-11-23] MEDS ORDERED: fentaNYL 100 MCG/2 ML SDV ONE (08:56)
[2017-11-23] MEDS ORDERED: Sodium Chloride 0.9% 10 ML Syringe FLUSH PRN (09:16)
[2017-11-23] MEDS ORDERED: Sodium Chloride 0.9% 2.5 ML Syringe FLUSH PRN (09:16)
[2017-11-23] MEDS ORDERED: Ondansetron 4 MG/2 ML SDV IVPUSH PRN (09:16)
--- NOTE | 2017-11-23 09:20 | PCM.OPNOTE ---
- General Post-Op/Procedure Note Date of Surgery/Procedure: 11/23/17 Operative Procedure(s): Laparoscopic cholecystectomy Pre Op Diagnosis: Chronic right upper quadrant pain. Fatty food intolerance. Abnormal hepatobiliary scan. Post-Op Diagnosis: Chronic cholecystitis Anesthesia Technique: General ET Tube (ASA I) Primary Surgeon: Edwin Rubi Hospital Manager: Nick Pradhan Fluid Replacement, Intraop: 1,300 EBL in mLs: 5 Condition: Good Free Text/Narrative:: DICTATION [id number] CC CODE [id number]
[2017-11-23] MEDS ORDERED: Morphine 4 MG/ML Syringe IVPUSH PRN (09:27)
[2017-11-23] MEDS ORDERED: Acetaminophen/HYDROcodone 325-5 MG Tab PO PRN (09:27)
--- NOTE | 2017-11-23 10:15 | PCM.POSTAN ---
POST ANESTHESIA ASSESSMENT - MENTAL STATUS Mental Status: Alert, Oriented - RESPIRATORY Respiratory Status: Respiratory Rate WNL, Airway Patent - CARDIOVASCULAR CV Status: Pulse Rate WNL, Blood Pressure Stable - GASTROINTESTINAL GI Status: No Symptoms - POST OP HYDRATION Hydration Status: Adequate & Stable
[2017-11-23] MEDS ORDERED: Acetaminophen 1,000 MG in Premix Bag 1 BAG IV ONE (10:48)
--- NOTE | 2017-11-23 12:42 | PCM48HPAN ---
Post Anesthesia Note - EVALUATION WITHIN 48HRS OF ANESTHETIC Vital Signs in Normal Range: Yes Patient Participated in Evaluation: Yes Respiratory Function Stable: Yes Airway Patent: Yes Cardiovascular Function Stable: Yes Hydration Status Stable: Yes Pain Control Satisfactory: Yes Nausea and Vomiting Control Satisfactory: Yes Mental Status Recovered: Yes Resp Rate: 17 - COMMENTS/OBSERVATIONS Free Text/Narrative:: no anesthesia problems
--- NOTE | 2017-11-23 13:17 | OR ---
SURGEON: Edwin Rubi M.D. DATE OF PROCEDURE: 11/23/2017 OPERATION PERFORMED: Laparoscopic cholecystectomy. COPY CHIEF: Dr. Bobo. ANESTHESIA: General endotracheal. ASA CLASSIFICATION: I. PREOPERATIVE DIAGNOSES: 1. Chronic right upper quadrant pain. 2. Fatty food intolerance. 3. Abnormal hepatobiliary scan. POSTOPERATIVE DIAGNOSES: 1. Chronic right upper quadrant pain. 2. Fatty food intolerance. 3. Abnormal hepatobiliary scan. ESTIMATED BLOOD LOSS: 5 mL. INTRAOPERATIVE FLUID REPLACEMENT: 1300 mL of crystalloid. DESCRIPTION OF PROCEDURE: The patient was taken to the operating room, placed on the operating table in the supine position. Time-out was called for appropriate identification of the patient and procedure. Thigh-high TEDs and sequential compression boots were placed. Following satisfactory attainment of general endotracheal anesthesia, a Stanley catheter was placed in the patient's urinary bladder. The abdomen was then prepped with DuraPrep solution. Sterile drapes were applied. The skin approximately senior care between the umbilicus and symphysis pubis was infiltrated with 0.5% Marcaine solution. The skin incision was made and deepened through the subcutaneous tissue obtaining hemostasis with the use of electrocautery. Veress needle was introduced into the peritoneal cavity. Saline drop test was positive. Carbon dioxide pneumoperitoneum was established with the relief set at 13 cm of water. Once a satisfactory pneumoperitoneum was established, the 5- mm camera and port were placed through that incision. The patient was now positioned with her feet down and rolled to the left. Under camera vision, 12- mm subxiphoid, 5-mm midclavicular, and 5-mm anterior axillary ports were placed. Each incision had preemptively been infiltrated with 0.5% Marcaine solution. The gallbladder was now grasped after adhesions were taken down. The cholecystohepatic triangle was dissected free obtaining a good critical view. The cystic duct was then ligated with hemoclips and divided with the laparoscopic Metzenbaum scissor. The cystic artery was likewise identified, mobilized and hemoclipped before division with the laparoscopic Metzenbaum scissor. The gallbladder was then dissected away from its bed using electrocautery. Minimal amount of bile was spilled. No stones were present. Once the gallbladder was amputated, this was placed in an EndoCatch and maintained in the peritoneal cavity. The right upper quadrant was then inspected and no bleeding or bile leak was noted from the liver bed. The gallbladder bed was then irrigated with sterile saline solution, all fluid was aspirated. The right hemidiaphragm was irrigated with 250 mL of saline containing 20 mL of 0.5% Marcaine solution. That fluid was left in place. Under camera vision, the 12-mm subxiphoid port and EndoCatch containing gallbladder were removed. The midclavicular and anterior axillary ports were removed under camera vision and finally the infraumbilical camera and port were removed. Incisions were all inspected for hemostasis and no bleeding was noted. The subxiphoid and infraumbilical incisions were closed in 2 layers approximating the subcutaneous tissue with 3-0 Vicryl and the skin with subcuticular 4-0 Monocryl. The anterior axillary and mid clavicular incisions were closed with subcuticular 4-0 Monocryl. All incisions were Steri-Stripped and dressed with sterile Tegaderm pads. Stanley catheter was removed prior to emergence from anesthesia. Sponge, needle, and instrument counts were all correct. Following emergence from anesthesia and extubation, the patient was taken to recovery room in stable condition. ROXANA ABEBE /[id number]
== END 2017-11-23 12:47 | disposition home or self-care (01) ==
LOC: MW.SDS 06:42
PROVIDERS: ATTEND Surgery
DX: K81.1 Chronic cholecystitis (principal); K82.8 Other specified diseases of gallbladder; K90.49 Malabsorption due to intolerance, not elsewhere classified; G43.909 Migraine, unspecified, not intractable, without status migrainosus; Z91.040 Latex allergy status; Z91.018 Allergy to other foods; Z91.010 Allergy to peanuts
CPT/HCPCS: 47562; 81025; 88304; A9270; J0131; J0694; J2250; J2405; J2704; J3010; J3490; J7120; J0690

== ENCOUNTER 2018-05-09 07:25 | Emergency (ER) | payer SELFPAY ==
--- NOTE | 2018-05-09 07:33 | EDM.PDOC ---
ED HPI GENERAL MEDICAL PROBLEM - General Stated Complaint: ABDOMINAL PAIN, NAUSEATED Time Seen by Provider: 05/09/18 07:32 Source of Information: Reports: Patient - History of Present Illness INITIAL COMMENTS - FREE TEXT/NARRATIVE: HISTORY AND PHYSICAL: History of present illness: [ Presents with nausea and diarrhea persistent over the last 2-3 days having 3-4 loose stools daily she complains mainly of nausea today stools are improving however she was able to provide a stool sample here in the ER for culture etc. No vomiting chills sweats no chest pain shortness breath headache dizziness palpitation no bowel or urine symptoms she does have mild 2 out of 10 diffuse abdom pain nonradiating and described some vaginal discharge Review of systems: As per history of present illness and below otherwise all systems reviewed and negative. Past medical history: As per history of present illness and as reviewed below otherwise noncontributory. Surgical history: As per history of present illness and as reviewed below otherwise noncontributory. Social history: No reported history of drug or alcohol abuse. Family history: As per history of present illness and as reviewed below otherwise noncontributory. Physical exam: HEENT: Atraumatic, normocephalic, pupils reactive, negative for conjunctival pallor or scleral icterus, mucous membranes moist, throat clear, neck supple, nontender, trachea midline. Lungs: Clear to auscultation, breath sounds equal bilaterally, chest nontender. Heart: S1S2, regular, negative for clicks, rubs, or JVD. Abdomen: Soft, nondistended, nontender. Negative for masses or hepatosplenomegaly. Negative for costovertebral tenderness. Pelvis: Stable nontender. Genitourinary: Normal external exam, internal exam mucosa is pink and moist no cervical motion tenderness. Scant mucousy discharge no older no mass scar or lesion Rectal: Deferred. Extremities: Atraumatic, negative for cords or calf pain. Neurovascular unremarkable. Neuro: Awake, alert, oriented. Cranial nerves II through XII unremarkable. Cerebellum unremarkable. Motor and sensory unremarkable throughout. Exam nonfocal. Diagnostics: [CBC CMP lipase UA hCG ]GC Chlamydia, wet [place] Stool workup with culture and C. difficile guaiac ova parasite Abdomen flat and upright Therapeutics: [Normal saline ]Zofran 8 mg IV Phenergan 25 mg by mouth every 6 when necessary #30 no refill Impression: [] gastroenteritis Definitive disposition and diagnosis as appropriate pending reevaluation and review of above. Abdominal Pain Score (Numeric/FACES): 6 - Related Data Allergies Allergy/AdvReac Type Severity Reaction Status Date / Time almond Allergy Rash Verified 05/09/18 07:40 latex Allergy Rash Verified 05/09/18 07:40 peanut Allergy Swelling Verified 05/09/18 07:40 powder in gloves Allergy Rash Uncoded 01/30/18 08:19 Home Meds: Home Meds . [No Known Home Meds] 01/30/18 [History] Past Medical History - Past Health History Medical/Surgical History: Denies Medical/Surgical History Respiratory History: Reports: None Gastrointestinal History: Reports: Other (See Below) Other Gastrointestinal History: intermittent epigastric pain and nausea due to gallbladder Musculoskeletal History: Reports: Other (See Below) Other Musculoskeletal History: L knee fluid removal as a child - Infectious Disease History Infectious Disease History: Reports: None - Past Surgical History Head Surgeries/Procedures: Reports: None GI Surgical History: Reports: Cholecystectomy Other GI Surgeries/Procedures: 11/2017 gallbladder removed Musculoskeletal Surgical History: Reports: Other (See Below) Social & Family History - Family History Family Medical History: Noncontributory - Caffeine Use Caffeine Use: Reports: None ED ROS GENERAL - Review of Systems Review Of Systems: See Below ED EXAM, GENERAL - Physical Exam Exam: See Below Course - Vital Signs Last Recorded V/S: Last Vital Signs Temp 98.0 F 05/09/18 07:41 Pulse 97 05/09/18 07:41 Resp 18 05/09/18 07:41 BP 124/73 05/09/18 07:41 Pulse Ox 98 05/09/18 07:41 - Orders/Labs/Meds Orders: Active Orders 24 hr Category Date Time Status CHLAMYDIA AND GONORRHEA BY TMA Stat Lab 05/09/18 09:35 Received CULTURE STOOL + CAMPY+SHIGATOX [RM] Stat Lab 05/09/18 09:08 Results CULTURE STOOL + CAMPY+SHIGATOX [RM] Stat Lab 05/09/18 09:13 Ordered OVA PARASITE EXAM Stat Lab 05/09/18 09:08 Received TRICH/GREG/CAND BY DNA PROBE [MOLEC] Stat Lab 05/09/18 09:35 Received Labs: Laboratory Tests 05/09/18 05/09/18 05/09/18 Range/Units 07:37 07:37 07:40 WBC (4.0-11.0) K/uL RBC (4.30-5.90) M/uL Hgb (12.0-16.0) g/dL Hct (36.0-46.0) % MCV (80.0-98.0) fL MCH (27.0-32.0) pg MCHC (31.0-37.0) g/dL RDW Std Deviation (28.0-62.0) fl RDW Coeff of Robert (11.0-15.0) % Plt Count (150-400) K/uL MPV (7.40-12.00) fL Neut % (Auto) (48.0-80.0) % Lymph % (Auto) (16.0-40.0) % [place] % (Auto) (0.0-15.0) % Eos % (Auto) (0.0-7.0) % Baso % (Auto) (0.0-1.5) % Neut # (Auto) (1.4-5.7) K/uL Lymph # (Auto) (0.6-2.4) K/uL [place] # (Auto) (0.0-0.8) K/uL Eos # (Auto) (0.0-0.7) K/uL Baso # (Auto) (0.0-0.1) K/uL Nucleated RBC % /100WBC Nucleated RBCs # K/uL Sodium 138 (136-145) mmol/L Potassium 3.6 (3.5-5.1) mmol/L Chloride 103 (98-107) mmol/L Carbon Dioxide 22.8 (21.0-32.0) mmol/L BUN 11 (7.0-18.0) mg/dL Creatinine 0.7 (0.6-1.0) mg/dL Est Cr Clr Drug Dosing 100.55 mL/min Estimated GFR (MDRD) > 60.0 ml/min Glucose 103 (74-106) mg/dL Calcium 9.1 (8.5-10.1) mg/dL Total Bilirubin 0.4 (0.2-1.0) mg/dL AST 17 (15-37) IU/L ALT 15 (14-63) IU/L Alkaline Phosphatase 57 (46-116) U/L Total Protein 7.2 (6.4-8.2) g/dL Albumin 3.9 (3.4-5.0) g/dL Globulin 3.3 (2.6-4.0) g/dL Albumin/Globulin Ratio 1.2 (0.9-1.6) Lipase 81 (73-393) U/L Urine Color YELLOW Urine Appearance CLEAR Urine pH 6.0 (5.0-8.0) Ur Specific [place] >= 1.030 (1.001-1.035) Urine Protein NEGATIVE (NEGATIVE) mg/dL Urine Glucose (UA) NEGATIVE (NEGATIVE) mg/dL Urine Ketones NEGATIVE (NEGATIVE) mg/dL Urine Occult Blood TRACE-INTACT H (NEGATIVE) Urine Nitrite NEGATIVE (NEGATIVE) Urine Bilirubin NEGATIVE (NEGATIVE) Urine Urobilinogen 0.2 (<2.0) EU/dL Ur Leukocyte Esterase NEGATIVE (NEGATIVE) Urine RBC 2-3 (0-2/HPF) Urine WBC 0-1 (0-5/HPF) Ur Epithelial Cells FEW (NONE-FEW) Urine Bacteria FEW (NEGATIVE) Urine HCG, Qual NEGATIVE (NEGATIVE) 05/09/18 Range/Units 08:06 WBC 5.92 (4.0-11.0) K/uL RBC 4.27 L (4.30-5.90) M/uL Hgb 12.6 (12.0-16.0) g/dL Hct 37.4 (36.0-46.0) % MCV 87.6 (80.0-98.0) fL MCH 29.5 (27.0-32.0) pg MCHC 33.7 (31.0-37.0) g/dL RDW Std Deviation 43.8 (28.0-62.0) fl RDW Coeff of Robert 14 (11.0-15.0) % Plt Count 287 (150-400) K/uL MPV 10.20 (7.40-12.00) fL Neut % (Auto) 56.6 (48.0-80.0) % Lymph % (Auto) 34.8 (16.0-40.0) % [place] % (Auto) 7.6 (0.0-15.0) % Eos % (Auto) 0.7 (0.0-7.0) % Baso % (Auto) 0.3 (0.0-1.5) % Neut # (Auto) 3.4 (1.4-5.7) K/uL Lymph # (Auto) 2.1 (0.6-2.4) K/uL [place] # (Auto) 0.5 (0.0-0.8) K/uL Eos # (Auto) 0.0 (0.0-0.7) K/uL Baso # (Auto) 0.0 (0.0-0.1) K/uL Nucleated RBC % 0.0 /100WBC Nucleated RBCs # 0 K/uL Sodium (136-145) mmol/L Potassium (3.5-5.1) mmol/L Chloride (98-107) mmol/L Carbon Dioxide (21.0-32.0) mmol/L BUN (7.0-18.0) mg/dL Creatinine (0.6-1.0) mg/dL Est Cr Clr Drug Dosing mL/min Estimated GFR (MDRD) ml/min Glucose (74-106) mg/dL Calcium (8.5-10.1) mg/dL Total Bilirubin (0.2-1.0) mg/dL AST (15-37) IU/L ALT (14-63) IU/L Alkaline Phosphatase (46-116) U/L Total Protein (6.4-8.2) g/dL Albumin (3.4-5.0) g/dL Globulin (2.6-4.0) g/dL Albumin/Globulin Ratio (0.9-1.6) Lipase (73-393) U/L Urine Color Urine Appearance Urine pH (5.0-8.0) Ur Specific [place] (1.001-1.035) Urine Protein (NEGATIVE) mg/dL Urine Glucose (UA) (NEGATIVE) mg/dL Urine Ketones (NEGATIVE) mg/dL Urine Occult Blood (NEGATIVE) Urine Nitrite (NEGATIVE) Urine Bilirubin (NEGATIVE) Urine Urobilinogen (<2.0) EU/dL Ur Leukocyte Esterase (NEGATIVE) Urine RBC (0-2/HPF) Urine WBC (0-5/HPF) Ur Epithelial Cells (NONE-FEW) Urine Bacteria (NEGATIVE) Urine HCG, Qual (NEGATIVE) Meds: Medications Discontinued Medications Generic Name Dose Route Start Last Admin Trade Name Freq PRN Reason Stop Dose Admin Sodium Chloride 1,000 mls @ 999 mls/hr 05/09/18 07:27 05/09/18 07:54 Normal Saline IV 05/09/18 08:27 999 mls/hr STAT ONE Administration Ondansetron HCl 8 mg 05/09/18 07:27 05/09/18 07:55 Zofran IVPUSH 05/09/18 07:28 8 mg ONETIME ONE Administration Departure - Departure Time of Disposition: 10:30 Disposition: Home, Self-Care 01 Condition: Good Clinical Impression: Gastroenteritis - Discharge Information Referrals: PCP,None [Primary Care Provider] - Additional Instructions: The following information is given to patients seen in the emergency department who are being discharged to home. This information is to outline your options for follow-up care. We provide all patients seen in our emergency department with a follow-up referral. The need for follow-up, as well as the timing and circumstances, are variable depending upon the specifics of your emergency department visit. If you don't have a primary care physician on staff, we will provide you with a referral. We always advise you to contact your personal physician following an emergency department visit to inform them of the circumstance of the visit and for follow-up with them and/or the need for any referrals to a consulting specialist. The emergency department will also refer you to a specialist when appropriate. This referral assures that you have the opportunity for follow-up care with a specialist. All of these measure are taken in an effort to provide you with optimal care, which includes your follow-up. Under all circumstances we always encourage you to contact your private physician who remains a resource for coordinating your care. When calling for follow-up care, please make the office aware that this follow-up is from your recent emergency room visit. If for any reason you are refused follow-up, please contact the [facility] emergency department at and asked to speak to the emergency department charge nurse. - My Orders Last 24 Hours: My Active Orders 05/09/18 09:08 CULTURE STOOL + CAMPY+SHIGATOX [RM] Stat OVA PARASITE EXAM Stat 05/09/18 09:13 CULTURE STOOL + CAMPY+SHIGATOX [RM] Stat 05/09/18 09:35 CHLAMYDIA AND GONORRHEA BY TMA Stat TRICH/GREG/CAND BY DNA PROBE [MOLEC] Stat - Assessment/Plan Last 24 Hours: My Active Orders 05/09/18 09:08 CULTURE STOOL + CAMPY+SHIGATOX [RM] Stat OVA PARASITE EXAM Stat 05/09/18 09:13 CULTURE STOOL + CAMPY+SHIGATOX [RM] Stat 05/09/18 09:35 CHLAMYDIA AND GONORRHEA BY TMA Stat TRICH/GREG/CAND BY DNA PROBE [MOLEC] Stat
[2018-05-09] MEDS: Sodium Chloride 0.9% 1,000 ML IV ONE (07:54)
[2018-05-09] MEDS: Ondansetron 4 MG/2 ML SDV IVPUSH ONE (07:55)
[2018-05-09 08:59] LABS: CHLORIDE,CL 103 mmol/L (98-107); SODIUM,NA 138 mmol/L (136-145)
--- NOTE | 2018-05-09 10:06 | CR ---
EXAMINATION: Abdomen HISTORY: Pain COMPARISON: CT dated 09/24/2017 TECHNIQUE: AP and upright views FINDINGS: There is no free air under the diaphragm. There is a nonobstructive bowel gas pattern. Likely cholecystectomy clips noted. Small calcifications project over the kidneys. Osseous structures appear normal. No organomegaly. IMPRESSION: 1. Nephrolithiasis otherwise unremarkable abdomen.
== END 2018-05-09 10:56 | disposition home or self-care (01) ==
LOC: MW.ED 07:25
DX: K52.9 Noninfective gastroenteritis and colitis, unspecified (principal); Z91.018 Allergy to other foods; Z91.040 Latex allergy status; Z91.010 Allergy to peanuts; Z91.09 Other allergy status, other than to drugs and biological substances
CPT/HCPCS: 36415; 74019; 80053; 81001; 81025; 82272; 83690; 85025; 87046; 87324; 87328; 87329; 87480; 87491; 87510; 87591; 87660; 87899; 96361; 96374; 99284; J2405; J7040

== ENCOUNTER 2018-05-30 08:18 | Observation (INO) | payer OTHER ==
[2018-05-30] MEDS ORDERED: Ondansetron 4 MG/2 ML SDV IVPUSH ONE (08:22)
[2018-05-30] MEDS ORDERED: Sodium Chloride 0.9% 1,000 ML IV ONE (08:22)
--- NOTE | 2018-05-30 08:22 | EDM.PDOC ---
ED HPI GENERAL MEDICAL PROBLEM - General Chief Complaint: Gastrointestinal Problem Stated Complaint: NAUSEA Time Seen by Provider: 05/30/18 08:21 Source of Information: Reports: Patient - History of Present Illness INITIAL COMMENTS - FREE TEXT/NARRATIVE: HISTORY AND PHYSICAL: History of present illness: [Patient has been having intermittent abdominal pain over the last 6 months since cholecystectomy as well as persistent nausea generally in the mornings her she has had an increase in pain today which has brought her back into the ER on exam she does have some tenderness in the right lower quadrant which would be new for the patient She has not had follow-up with Dr. Rubi since colonoscopy 6 months prior No fever vomiting chills sweats no chest pain shortness breath headache dizziness palpitation no bowel or urine symptoms Review of systems: As per history of present illness and below otherwise all systems reviewed and negative. Past medical history: As per history of present illness and as reviewed below otherwise noncontributory. Surgical history: As per history of present illness and as reviewed below otherwise noncontributory. Social history: No reported history of drug or alcohol abuse. Family history: As per history of present illness and as reviewed below otherwise noncontributory. Physical exam: HEENT: Atraumatic, normocephalic, pupils reactive, negative for conjunctival pallor or scleral icterus, mucous membranes moist, throat clear, neck supple, nontender, trachea midline. Lungs: Clear to auscultation, breath sounds equal bilaterally, chest nontender. Heart: S1S2, regular, negative for clicks, rubs, or JVD. Abdomen: Soft, nondistended, tender in right lower quadrant on deep palpation no guarding or rebound Negative for masses or hepatosplenomegaly. Negative for costovertebral tenderness. Pelvis: Stable nontender. Genitourinary: Deferred. Rectal: Deferred. Extremities: Atraumatic, negative for cords or calf pain. Neurovascular unremarkable. Neuro: Awake, alert, oriented. Cranial nerves II through XII unremarkable. Cerebellum unremarkable. Motor and sensory unremarkable throughout. Exam nonfocal. Diagnostics: [cbc, cmp, lip ]T abdomen pelvis without contrast Therapeutics: [normal saline zofran Omeprazole Dr. Weaver's consult and we will admit the patient for observation ] Impression: [nausea ]Eleni will pain Definitive disposition and diagnosis as appropriate pending reevaluation and review of above. Upper Abdominal Pain Score (Numeric/FACES): 4 - Related Data Allergies Allergy/AdvReac Type Severity Reaction Status Date / Time almond Allergy Rash Verified 05/30/18 08:29 latex Allergy Rash Verified 05/30/18 08:29 peanut Allergy Swelling Verified 05/30/18 08:29 powder in gloves Allergy Rash Uncoded 05/30/18 08:29 Home Meds: Home Meds . [No Known Home Meds] 01/30/18 [History] Past Medical History - Past Health History Medical/Surgical History: Denies Medical/Surgical History Respiratory History: Reports: None Gastrointestinal History: Reports: Other (See Below) Other Gastrointestinal History: intermittent epigastric pain and nausea due to gallbladder Musculoskeletal History: Reports: Other (See Below) Other Musculoskeletal History: L knee fluid removal as a child - Infectious Disease History Infectious Disease History: Reports: None - Past Surgical History Head Surgeries/Procedures: Reports: None GI Surgical History: Reports: Cholecystectomy Other GI Surgeries/Procedures: 11/2017 gallbladder removed Musculoskeletal Surgical History: Reports: Other (See Below) Social & Family History - Family History Family Medical History: Noncontributory - Caffeine Use Caffeine Use: Reports: None ED ROS GENERAL - Review of Systems Review Of Systems: See Below ED EXAM, GENERAL - Physical Exam Exam: See Below Course - Vital Signs Last Recorded V/S: Last Vital Signs Temp 97.4 F 05/30/18 08:26 Pulse 68 05/30/18 10:52 Resp 16 05/30/18 10:52 BP 107/63 05/30/18 10:52 Pulse Ox 100 05/30/18 10:52 - Orders/Labs/Meds Labs: Laboratory Tests 05/30/18 05/30/18 05/30/18 Range/Units 08:43 08:43 09:07 WBC 6.28 (4.0-11.0) K/uL RBC 4.91 (4.30-5.90) M/uL Hgb 15.3 (12.0-16.0) g/dL Hct 43.0 (36.0-46.0) % MCV 87.6 (80.0-98.0) fL MCH 31.2 (27.0-32.0) pg MCHC 35.6 (31.0-37.0) g/dL RDW Std Deviation 42.8 (28.0-62.0) fl RDW Coeff of Robert 13 (11.0-15.0) % Plt Count 290 (150-400) K/uL MPV 10.70 (7.40-12.00) fL Neut % (Auto) 59.3 (48.0-80.0) % Lymph % (Auto) 32.0 (16.0-40.0) % [place] % (Auto) 7.6 (0.0-15.0) % Eos % (Auto) 0.5 (0.0-7.0) % Baso % (Auto) 0.6 (0.0-1.5) % Neut # (Auto) 3.7 (1.4-5.7) K/uL Lymph # (Auto) 2.0 (0.6-2.4) K/uL [place] # (Auto) 0.5 (0.0-0.8) K/uL Eos # (Auto) 0.0 (0.0-0.7) K/uL Baso # (Auto) 0.0 (0.0-0.1) K/uL Nucleated RBC % 0.0 /100WBC Nucleated RBCs # 0 K/uL Sodium 139 (136-145) mmol/L Potassium 4.0 (3.5-5.1) mmol/L Chloride 103 (98-107) mmol/L Carbon Dioxide 26.7 (21.0-32.0) mmol/L BUN 11 (7.0-18.0) mg/dL Creatinine 0.8 (0.6-1.0) mg/dL Est Cr Clr Drug Dosing 83.64 mL/min Estimated GFR (MDRD) > 60.0 ml/min Glucose 97 (74-106) mg/dL Calcium 9.3 (8.5-10.1) mg/dL Total Bilirubin 0.4 (0.2-1.0) mg/dL AST 16 (15-37) IU/L ALT 18 (14-63) IU/L Alkaline Phosphatase 56 (46-116) U/L Total Protein 7.6 (6.4-8.2) g/dL Albumin 4.2 (3.4-5.0) g/dL Globulin 3.4 (2.6-4.0) g/dL Albumin/Globulin Ratio 1.2 (0.9-1.6) Lipase 64 L (73-393) U/L Urine HCG, Qual NEGATIVE (NEGATIVE) Meds: Medications Discontinued Medications Generic Name Dose Route Start Last Admin Trade Name Rosa PRN Reason Stop Dose Admin Sodium Chloride 1,000 mls @ 999 mls/hr 05/30/18 08:22 05/30/18 08:36 Normal Saline IV 05/30/18 09:22 999 mls/hr STAT ONE Administration Sterile Water Confirm 05/30/18 11:12 05/30/18 11:19 Sterile Water For Injection Administered 05/30/18 11:13 1 mls/hr Dose Administration 20 mls @ as directed .ROUTE .STK-MED ONE Ondansetron HCl 8 mg 05/30/18 08:22 05/30/18 08:35 Zofran IVPUSH 05/30/18 08:23 8 mg ONETIME ONE Administration Pantoprazole Sodium 80 mg 05/30/18 11:03 05/30/18 11:19 Protonix Iv IVPUSH 05/30/18 11:04 80 mg .BOLUS ONE Administration Departure - Departure Time of Disposition: 12:32 Disposition: Refer to Observation Condition: Good Clinical Impression: Abdominal pain Qualifiers: Abdominal location: epigastric Qualified Code(s): R10.13 - Epigastric pain - Discharge Information Referrals: PCP,None [Primary Care Provider] - Forms: ED Department Discharge
[2018-05-30 09:36] LABS: CHLORIDE,CL 103 mmol/L (98-107); SODIUM,NA 139 mmol/L (136-145)
[2018-05-30] MEDS ORDERED: Pantoprazole 40 MG Vial IVPUSH ONE (11:03)
--- NOTE | 2018-05-30 11:05 | CT ---
CT of the abdomen and pelvis without contrast. HISTORY: Pain TECHNIQUE: Axial CT images were obtained of the abdomen and pelvis without contrast. Coronal and sagittal reconstructions obtained. FINDINGS: The lung bases are clear, no pleural effusion. The liver, spleen, adrenal glands, and pancreas appear unremarkable for noncontrast examination. Cholecystectomy clips are noted. There is no bulky retroperitoneal lymphadenopathy. No abdominal ascites. There are no calcifications noted within the kidneys or along the courses of the ureters bilaterally. The large and small bowel are normal in caliber without evidence of obstruction. The appendix appears normal. The appendix is borderline in size in a retrocecal position. There is an appendicolith noted at the base of the appendix. There is mild periappendiceal stranding near the tip. No significant free fluid. No free air. The urinary bladder appears normal. Mild fullness of the right ovary, well characterized without contrast. The visualized osseous structures appear normal. IMPRESSION: 1. Possible early appendicitis. Appendix is in a retrocecal position.
[2018-05-30] MEDS ORDERED: Water For Injection, Sterile 20 ML ONE (11:12)
[2018-05-30] MEDS ORDERED: Metoclopramide 10 MG/2 ML SDV IVPUSH PRN (12:31)
[2018-05-30] MEDS ORDERED: Sodium Chloride 0.9% 2.5 ML Syringe FLUSH PRN (12:31)
[2018-05-30] MEDS ORDERED: Promethazine 25 MG/ML SDV IM PRN (12:31)
[2018-05-30] MEDS ORDERED: Sodium Chloride 0.9% 10 ML Syringe FLUSH PRN (12:31)
[2018-05-30] MEDS ORDERED: Ondansetron 4 MG/2 ML SDV IVPUSH PRN (12:31)
[2018-05-30] MEDS ORDERED: diphenhydrAMINE 50 MG/ML SDV IVPUSH PRN (12:31)
[2018-05-30] MEDS ORDERED: Sodium Chloride 0.9% 10 ML SDV IV PRN (12:31)
[2018-05-30] MEDS ORDERED: Scopolamine 1.5 MG Transdermal Patch TRDERM SCH (12:45)
[2018-05-30] MEDS: Piperacillin/Tazobactam 3.375 GM in Sodium Chloride 0.9% 50 ML IV SCH ×3 (13:43→23:51)
[2018-05-30] MEDS: Lactated Ringers 1,000 ML IV SCH ×2 (14:36→23:04)
--- NOTE | 2018-05-30 15:03 | PCM.HP ---
H&P History of Present Illness - General Date of Service: 05/30/18 Admit Problem/Dx: Admission Diagnosis/Problem Admission Diagnosis/Problem Nausea without vomiting Source of Information: Patient History Limitations: Reports: No Limitations - History of Present Illness Initial Comments - Free Text/Narative: Patient is a 23 year old female who presents with intractable nausea. She states that since having her gallbladder removed last fall she has been suffering from nausea and vomiting. She has lost weight with this. She woke up this morning with severe nausea and retching. This was unbearable so she came to the ER. She complains of intermittent right sided pain, but denies any to me today. According to the ER she was having some abdominal pain. She denies fevers , chills, diaphoresis, SOB or chest pain. She had a BM today. On arrival to the ER her vitals were stable. Here CBC and CMP were normal. Beta HCG and H pylori were negative. A CT of the abdomen pelvis showed a retrocecal appendix with an appendicolith. There was some possible stranding at the tip as well as mild dilation. It was felt this maybe early tip appendicitis. Upper Abdominal Pain Score (Numeric/FACES): 2 - Related Data Allergies/Adverse Reactions: Allergies Allergy/AdvReac Type Severity Reaction Status Date / Time almond Allergy Rash Verified 05/30/18 08:29 latex Allergy Rash Verified 05/30/18 08:29 peanut Allergy Swelling Verified 05/30/18 08:29 powder in gloves Allergy Rash Uncoded 05/30/18 08:29 Home Medications: Home Meds . [No Known Home Meds] 01/30/18 [History] Past Medical History - Past Health History Medical/Surgical History: Denies Medical/Surgical History Respiratory History: Reports: None Gastrointestinal History: Reports: Other (See Below) Other Gastrointestinal History: intermittent epigastric pain and nausea due to gallbladder Musculoskeletal History: Reports: Other (See Below) Other Musculoskeletal History: L knee fluid removal as a child - Infectious Disease History Infectious Disease History: Reports: None - Past Surgical History Head Surgeries/Procedures: Reports: None GI Surgical History: Reports: Cholecystectomy Other GI Surgeries/Procedures: 11/2017 gallbladder removed Musculoskeletal Surgical History: Reports: Other (See Below) Social & Family History - Family History Family Medical History: Noncontributory - Tobacco Use Smoking Status *Q: Never Smoker - Caffeine Use Caffeine Use: Reports: Soda, Tea - Recreational Drug Use Recreational Drug Use: Yes Drug Use in Last 12 Months: Yes Recreational Drug Type: Reports: Marijuana/Hashish Recreational Drug Use Frequency: Daily Recreational Drug Last Use: last night H&P Review of Systems - Review of Systems: Review Of Systems: ROS reveals no pertinent complaints other than HPI. Exam - Exam Exam: See Below - Vital Signs Vital Signs: Last Vital Signs Temp 36.7 C 05/30/18 13:02 Pulse 77 05/30/18 13:02 Resp 16 05/30/18 13:02 BP 108/84 05/30/18 13:02 Pulse Ox 98 05/30/18 14:00 Weight: 48.081 kg - Exam General: Alert, Oriented, Cooperative HEENT: Conjunctiva Clear, Mucosa Moist & [place], Posterior Pharynx Clear Neck: Supple, Trachea Midline Lungs: Clear to Auscultation, Normal Respiratory Effort Cardiovascular: Regular Rate, Regular Rhythm GI/Abdominal Exam: Normal Bowel Sounds, Soft, Non-Tender, No Organomegaly, No Distention, No Mass. No: Guarding, Rigid, Rebound, Tender - Patient Data Lab Results Last 24 hrs: Laboratory Results - last 24 hr 05/30/18 05/30/18 05/30/18 Range/Units 08:43 08:43 09:07 WBC 6.28 (4.0-11.0) K/uL RBC 4.91 (4.30-5.90) M/uL Hgb 15.3 (12.0-16.0) g/dL Hct 43.0 (36.0-46.0) % MCV 87.6 (80.0-98.0) fL MCH 31.2 (27.0-32.0) pg MCHC 35.6 (31.0-37.0) g/dL RDW Std Deviation 42.8 (28.0-62.0) fl RDW Coeff of Robert 13 (11.0-15.0) % Plt Count 290 (150-400) K/uL MPV 10.70 (7.40-12.00) fL Neut % (Auto) 59.3 (48.0-80.0) % Lymph % (Auto) 32.0 (16.0-40.0) % [place] % (Auto) 7.6 (0.0-15.0) % Eos % (Auto) 0.5 (0.0-7.0) % Baso % (Auto) 0.6 (0.0-1.5) % Neut # (Auto) 3.7 (1.4-5.7) K/uL Lymph # (Auto) 2.0 (0.6-2.4) K/uL [place] # (Auto) 0.5 (0.0-0.8) K/uL Eos # (Auto) 0.0 (0.0-0.7) K/uL Baso # (Auto) 0.0 (0.0-0.1) K/uL Nucleated RBC % 0.0 /100WBC Nucleated RBCs # 0 K/uL Sodium 139 (136-145) mmol/L Potassium 4.0 (3.5-5.1) mmol/L Chloride 103 (98-107) mmol/L Carbon Dioxide 26.7 (21.0-32.0) mmol/L BUN 11 (7.0-18.0) mg/dL Creatinine 0.8 (0.6-1.0) mg/dL Est Cr Clr Drug Dosing 83.64 mL/min Estimated GFR (MDRD) > 60.0 ml/min Glucose 97 (74-106) mg/dL Calcium 9.3 (8.5-10.1) mg/dL Total Bilirubin 0.4 (0.2-1.0) mg/dL AST 16 (15-37) IU/L ALT 18 (14-63) IU/L Alkaline Phosphatase 56 (46-116) U/L Total Protein 7.6 (6.4-8.2) g/dL Albumin 4.2 (3.4-5.0) g/dL Globulin 3.4 (2.6-4.0) g/dL Albumin/Globulin Ratio 1.2 (0.9-1.6) Lipase 64 L (73-393) U/L Urine HCG, Qual NEGATIVE (NEGATIVE) Result Diagrams: 05/30/18 08:43 05/30/18 08:43 - Problem List (1) Abdominal pain SNOMED Code(s): 26386295 ICD Code: R10.9 - UNSPECIFIED ABDOMINAL PAIN Status: Acute Current Visit : Yes Qualifiers: Abdominal location: epigastric Qualified Code(s): R10.13 - Epigastric pain Problem List Initiated/Reviewed/Updated: Yes Orders Last 24hrs: Active Orders 24 hr Category Date Time Status Patient Status [ADT] Routine ADT 05/30/18 12:31 Active Intake and Output [RC] Q4HR Care 05/30/18 12:32 Active Oxygen Therapy [RC] PRN Care 05/30/18 12:31 Active RT Incentive Spirometry [RC] Q1HWA Care 05/30/18 12:31 Active Up ad Alice [RC] ASDIRECTED Care 05/30/18 12:31 Active Vital Signs [RC] PER UNIT ROUTINE Care 05/30/18 12:31 Active Nothing Per Oral Diet [DIET] Diet 05/30/18 Lunch Active CBC WITH AUTO DIFF [HEME] AM Lab 05/31/18 05:11 Ordered HELICOBACTER PYLORI AB IGG [CHEM] Stat Lab 05/30/18 15:02 Ordered Lactated Ringers [Ringers, Lactated] 1,000 ml Med 05/30/18 12:45 Active IV ASDIRECTED Metoclopramide [Reglan] Med 05/30/18 12:31 Active 5 mg IVPUSH Q6H PRN Ondansetron [Zofran] Med 05/30/18 12:31 Active 4 mg IVPUSH Q6H PRN Piperacillin/Tazobactam [Piperacil-Tazobact] 3.375 gm Med 05/30/18 12:45 Active Sodium Chloride 0.9% [Normal Saline] 50 ml IV Q6H Promethazine [Phenergan] Med 05/30/18 12:31 Active 12.5 mg IM Q6H PRN Scopolamine [Transderm-Scop] Med 05/30/18 12:45 Active 1.5 mg TRDERM Q72H Sodium Chloride 0.9% [Normal Saline] Med 05/30/18 12:31 Active 10 ml IV ASDIRECTED PRN Sodium Chloride 0.9% [Saline Flush] Med 05/30/18 12:31 Active 10 ml FLUSH ASDIRECTED PRN Sodium Chloride 0.9% [Saline Flush] Med 05/30/18 12:31 Active 2.5 ml FLUSH ASDIRECTED PRN diphenhydrAMINE [Benadryl] Med 05/30/18 12:31 Active 25 mg IVPUSH Q4H PRN Peripheral IV Insertion Adult [OM.PC] Urgent Oth 05/30/18 12:31 Ordered Resuscitation Status Routine Resus Stat 05/30/18 12:31 Ordered Medication Orders Diphenhydramine HCl (Benadryl) 25 mg IVPUSH Q4H PRN PRN Reason: Itching Lactated Ringer's (Ringers, Lactated) 1,000 mls @ 125 mls/hr IV ASDIRECTED [facility] Last Admin: 05/30/18 14:36 Dose: 125 mls/hr Piperacillin Sod/Tazobactam (Sod 3.375 gm/ Sodium Chloride) 50 mls @ 100 mls/ hr IV Q6H [facility] Last Admin: 05/30/18 13:43 Dose: 100 mls/hr Metoclopramide HCl (Reglan) 5 mg IVPUSH Q6H PRN PRN Reason: Nausea Ondansetron HCl (Zofran) 4 mg IVPUSH Q6H PRN PRN Reason: Nausea/Vomiting Promethazine HCl (Phenergan) 12.5 mg IM Q6H PRN PRN Reason: Nausea Scopolamine (Transderm-Scop) 1.5 mg TRDERM Q72H [facility] Last Admin: 05/30/18 13:44 Dose: 1.5 mg Sodium Chloride (Saline Flush) 10 ml FLUSH ASDIRECTED PRN PRN Reason: Keep Vein Open Sodium Chloride (Saline Flush) 2.5 ml FLUSH ASDIRECTED PRN PRN Reason: Keep Vein Open Sodium Chloride (Normal Saline) 10 ml IV ASDIRECTED PRN PRN Reason: IV Use Assessment/Plan Comment:: Her physical exam is unremarkable. Her story is not classic for appendicitis. I reviewed the images and agree that the very tip of the appendix looks slightly dilated. Will admit to the hospital for close monitoring. I will keep her NPO other than sips with medications and ice chips. Will start LR @125ml/hr. IV antibiotics for overnight. I will give her a scopalamine patch for nausea. Will have various IV meds for nausea available as needed. If her nausea worsens or she develops more persistent and severe back/abdominal pain will consider for laparoscopic possible open appendectomy.
[2018-05-31] MEDS: Piperacillin/Tazobactam 3.375 GM in Sodium Chloride 0.9% 50 ML IV SCH ×2 (05:50→12:03)
[2018-05-31] MEDS: Lactated Ringers 1,000 ML IV SCH ×2 (05:51→22:51)
--- NOTE | 2018-05-31 10:27 | PCM.PN ---
- General Info Date of Service: 05/31/18 Subjective Update: Patient was feeling well last night as well allowing her to have clear liquids. Upon drinking these however her abdominal pain returned and she experienced diarrhea after her meal. She states that the pain is located in the epigastric and right upper quadrant area and was sharp and crampy. She denies any fevers or chills. Her vital signs were stable overnight. Her labs this morning are all within normal limits. - Review of Systems General: Reports: No Symptoms HEENT: Reports: No Symptoms Pulmonary: Reports: No Symptoms Cardiovascular: Reports: No Symptoms Gastrointestinal: Reports: Abdominal Pain, Diarrhea, Nausea Genitourinary: Reports: No Symptoms Musculoskeletal: Reports: No Symptoms - Patient Data Vitals - Most Recent: Last Vital Signs Temp 36.8 C 05/31/18 08:00 Pulse 80 05/31/18 08:00 Resp 16 05/31/18 04:00 BP 109/65 05/31/18 08:00 Pulse Ox 97 05/31/18 04:00 Weight - Most Recent: 48.081 kg I&O - Last 24 Hours: Intake & Output 05/30/18 05/31/18 05/31/18 22:59 06:59 14:59 Intake Total 331 2392 Output Total 200 1300 Balance 131 1092 Lab Results Last 24 Hours: Laboratory Results - last 24 hr 05/30/18 05/31/18 Range/Units 08:43 05:40 WBC 5.02 (4.0-11.0) K/uL RBC 4.24 L (4.30-5.90) M/uL Hgb 12.5 (12.0-16.0) g/dL Hct 37.3 (36.0-46.0) % MCV 88.0 (80.0-98.0) fL MCH 29.5 (27.0-32.0) pg MCHC 33.5 (31.0-37.0) g/dL RDW Std Deviation 43.0 (28.0-62.0) fl RDW Coeff of Robert 14 (11.0-15.0) % Plt Count 259 (150-400) K/uL MPV 10.40 (7.40-12.00) fL Neut % (Auto) 52.6 (48.0-80.0) % Lymph % (Auto) 39.2 (16.0-40.0) % [place] % (Auto) 7.6 (0.0-15.0) % Eos % (Auto) 0.2 (0.0-7.0) % Baso % (Auto) 0.4 (0.0-1.5) % Neut # (Auto) 2.6 (1.4-5.7) K/uL Lymph # (Auto) 2.0 (0.6-2.4) K/uL [place] # (Auto) 0.4 (0.0-0.8) K/uL Eos # (Auto) 0.0 (0.0-0.7) K/uL Baso # (Auto) 0.0 (0.0-0.1) K/uL Nucleated RBC % 0.0 /100WBC Nucleated RBCs # 0 K/uL H. pylori IgG Antibody NEGATIVE (NEG) Med Orders - Current: Current Medications Diphenhydramine HCl (Benadryl) 25 mg IVPUSH Q4H PRN PRN Reason: Itching Lactated Ringer's (Ringers, Lactated) 1,000 mls @ 125 mls/hr IV ASDIRECTED [facility] Last Admin: 05/31/18 05:51 Dose: 125 mls/hr Piperacillin Sod/Tazobactam (Sod 3.375 gm/ Sodium Chloride) 50 mls @ 100 mls/ hr IV Q6H [facility] Last Admin: 05/31/18 05:50 Dose: 100 mls/hr Metoclopramide HCl (Reglan) 5 mg IVPUSH Q6H PRN PRN Reason: Nausea Last Admin: 05/30/18 22:22 Dose: 5 mg Ondansetron HCl (Zofran) 4 mg IVPUSH Q6H PRN PRN Reason: Nausea/Vomiting Last Admin: 05/31/18 02:55 Dose: 4 mg Promethazine HCl (Phenergan) 12.5 mg IM Q6H PRN PRN Reason: Nausea Scopolamine (Transderm-Scop) 1.5 mg TRDERM Q72H [facility] Last Admin: 05/30/18 13:44 Dose: 1.5 mg Sodium Chloride (Saline Flush) 10 ml FLUSH ASDIRECTED PRN PRN Reason: Keep Vein Open Sodium Chloride (Saline Flush) 2.5 ml FLUSH ASDIRECTED PRN PRN Reason: Keep Vein Open Sodium Chloride (Normal Saline) 10 ml IV ASDIRECTED PRN PRN Reason: IV Use Discontinued Medications Sodium Chloride (Normal Saline) 1,000 mls @ 999 mls/hr IV STAT ONE Stop: 05/30/18 09:22 Last Admin: 05/30/18 08:36 Dose: 999 mls/hr Sterile Water (Sterile Water For Injection) Confirm Administered Dose 20 mls @ as directed .ROUTE .STK-MED ONE Stop: 05/30/18 11:13 Last Admin: 05/30/18 11:19 Dose: 1 mls/hr Ondansetron HCl (Zofran) 8 mg IVPUSH ONETIME ONE Stop: 05/30/18 08:23 Last Admin: 05/30/18 08:35 Dose: 8 mg Pantoprazole Sodium (Protonix Iv) 80 mg IVPUSH .BOLUS ONE Stop: 05/30/18 11:04 Last Admin: 05/30/18 11:19 Dose: 80 mg - Exam General: Alert, Oriented, Cooperative HEENT: Pupils Equal, Pupils Reactive, EOMI, Mucous Membr. Moist/[place] Lungs: Normal Respiratory Effort Cardiovascular: Regular Rate GI/Abdominal Exam: Soft, Non-Tender, No Distention, No Mass Back Exam: Normal Inspection, Full Range of Motion. No: CVA Tenderness (R) Extremities: Normal Inspection, Normal Range of Motion - Problem List & Annotations (1) Abdominal pain SNOMED Code(s): 97003972 Code(s): R10.9 - UNSPECIFIED ABDOMINAL PAIN Status: Acute Current Visit: Yes Qualifiers: Abdominal location: epigastric Qualified Code(s): R10.13 - Epigastric pain - Problem List Review Problem List Initiated/Reviewed/Updated: Yes - My Orders Last 24 Hours: My Active Orders 05/30/18 12:31 Oxygen Therapy [RC] PRN RT Incentive Spirometry [RC] Q1HWA Up ad Alice [RC] ASDIRECTED Vital Signs [RC] PER UNIT ROUTINE Metoclopramide [Reglan] 5 mg IVPUSH Q6H PRN Ondansetron [Zofran] 4 mg IVPUSH Q6H PRN Promethazine [Phenergan] 12.5 mg IM Q6H PRN Sodium Chloride 0.9% [Normal Saline] 10 ml IV ASDIRECTED PRN Sodium Chloride 0.9% [Saline Flush] 10 ml FLUSH ASDIRECTED PRN Sodium Chloride 0.9% [Saline Flush] 2.5 ml FLUSH ASDIRECTED PRN diphenhydrAMINE [Benadryl] 25 mg IVPUSH Q4H PRN Peripheral IV Insertion Adult [OM.PC] Urgent Resuscitation Status Routine 05/30/18 12:32 Intake and Output [RC] Q12H 05/30/18 12:45 Lactated Ringers [Ringers, Lactated] 1,000 ml IV ASDIRECTED Piperacillin/Tazobactam [Piperacil-Tazobact] 3.375 gm Sodium Chloride 0.9% [ Normal Saline] 50 ml IV Q6H Scopolamine [Transderm-Scop] 1.5 mg TRDERM Q72H 05/31/18 10:20 Patient Status [ADT] Routine 05/31/18 Breakfast NPO [Nothing Per Oral Diet] [DIET] - Assessment Assessment:: nausea and vomiting - Plan Plan:: The patient appendix had some mild stranding at the tip. She did have an appendicolith and mildly dilated appendix. It is in a retrocecal position which may be why her symptoms are atypical. We had a long conversation this morning discussing our options. We discussed removing the appendix surgically vs conservative management. After discussion of the risks and benefits, she would like to proceed with surgery. We discussed the procedure, expected preoperative course as well as risks including bleeding infection or damage to surrounding structures. I will attempt this laparoscopically but should I be unable to perform this safely, I will convert to open. She understands this and wishes to proceed.
--- NOTE | 2018-05-31 11:02 | PCM.PREANE ---
Preanesthetic Assessment - Anesthesia/Transfusion/Family Hx Anesthesia History: Prior Anesthesia Without Reaction Transfusion History: No Prior Transfusion(s) Intubation History: Unknown - Review of Systems General: No Symptoms Pulmonary: No Symptoms Cardiovascular: No Symptoms Gastrointestinal: No Symptoms Neurological: No Symptoms Other: Reports: None - Physical Assessment O2 Sat by Pulse Oximetry: 97 Respiratory Rate: 16 Vital Signs: Last Vital Signs Temp 98.3 F 05/31/18 08:00 Pulse 80 05/31/18 08:00 Resp 16 05/31/18 04:00 BP 109/65 05/31/18 08:00 Pulse Ox 97 05/31/18 04:00 Height: 5 ft 2.5 in Weight: 48.081 kg ASA Class: 1E Mental Status: Alert & Oriented x3 Airway Class: Mallampati = 2 Dentition: Reports: Normal Dentition Thyro-Mental Finger Breadths: 3 Mouth Opening Finger Breadths: 3 ROM/Head Extension: Full Lungs: Clear to Auscultation, Normal Respiratory Effort Cardiovascular: Regular Rate, Regular Rhythm - Lab Values: Laboratory Last Values WBC 5.02 K/uL (4.0-11.0) 05/31/18 05:40 RBC 4.24 M/uL (4.30-5.90) L 05/31/18 05:40 Hgb 12.5 g/dL (12.0-16.0) 05/31/18 05:40 Hct 37.3 % (36.0-46.0) 05/31/18 05:40 MCV 88.0 fL (80.0-98.0) 05/31/18 05:40 MCH 29.5 pg (27.0-32.0) 05/31/18 05:40 MCHC 33.5 g/dL (31.0-37.0) 05/31/18 05:40 RDW Std Deviation 43.0 fl (28.0-62.0) 05/31/18 05:40 RDW Coeff of Robert 14 % (11.0-15.0) 05/31/18 05:40 Plt Count 259 K/uL (150-400) 05/31/18 05:40 MPV 10.40 fL (7.40-12.00) 05/31/18 05:40 Neut % (Auto) 52.6 % (48.0-80.0) 05/31/18 05:40 Lymph % (Auto) 39.2 % (16.0-40.0) 05/31/18 05:40 [place] % (Auto) 7.6 % (0.0-15.0) 05/31/18 05:40 Eos % (Auto) 0.2 % (0.0-7.0) 05/31/18 05:40 Baso % (Auto) 0.4 % (0.0-1.5) 05/31/18 05:40 Neut # (Auto) 2.6 K/uL (1.4-5.7) 05/31/18 05:40 Lymph # (Auto) 2.0 K/uL (0.6-2.4) 05/31/18 05:40 [place] # (Auto) 0.4 K/uL (0.0-0.8) 05/31/18 05:40 Eos # (Auto) 0.0 K/uL (0.0-0.7) 05/31/18 05:40 Baso # (Auto) 0.0 K/uL (0.0-0.1) 05/31/18 05:40 Nucleated RBC % 0.0 /100WBC 05/31/18 05:40 Nucleated RBCs # 0 K/uL 05/31/18 05:40 Sodium 139 mmol/L (136-145) 05/30/18 08:43 Potassium 4.0 mmol/L (3.5-5.1) 05/30/18 08:43 Chloride 103 mmol/L (98-107) 05/30/18 08:43 Carbon Dioxide 26.7 mmol/L (21.0-32.0) 05/30/18 08:43 BUN 11 mg/dL (7.0-18.0) 05/30/18 08:43 Creatinine 0.8 mg/dL (0.6-1.0) 05/30/18 08:43 Est Cr Clr Drug Dosing 83.64 mL/min 05/30/18 08:43 Estimated GFR (MDRD) > 60.0 ml/min 05/30/18 08:43 Glucose 97 mg/dL (74-106) 05/30/18 08:43 Calcium 9.3 mg/dL (8.5-10.1) 05/30/18 08:43 Total Bilirubin 0.4 mg/dL (0.2-1.0) 05/30/18 08:43 AST 16 IU/L (15-37) 05/30/18 08:43 ALT 18 IU/L (14-63) 05/30/18 08:43 Alkaline Phosphatase 56 U/L (46-116) 05/30/18 08:43 Total Protein 7.6 g/dL (6.4-8.2) 05/30/18 08:43 Albumin 4.2 g/dL (3.4-5.0) 05/30/18 08:43 Globulin 3.4 g/dL (2.6-4.0) 05/30/18 08:43 Albumin/Globulin Ratio 1.2 (0.9-1.6) 05/30/18 08:43 Lipase 64 U/L (73-393) L 05/30/18 08:43 Urine HCG, Qual NEGATIVE (NEGATIVE) 05/30/18 09:07 H. pylori IgG Antibody NEGATIVE (NEG) 05/30/18 08:43 - Allergies Allergies/Adverse Reactions: Allergies Allergy/AdvReac Type Severity Reaction Status Date / Time almond Allergy Rash Verified 05/30/18 08:29 latex Allergy Rash Verified 05/30/18 08:29 peanut Allergy Swelling Verified 05/30/18 08:29 powder in gloves Allergy Rash Uncoded 05/30/18 08:29 - Acknowledgements Anesthesia Type Planned: General Anesthesia Pt an Appropriate Candidate for the Planned Anesthesia: Yes Alternatives and Risks of Anesthesia Discussed w Pt/Guardian: Yes Pt/Guardian Understands and Agrees with Anesthesia Plan: Yes PreAnesthesia Questionnaire - Past Health History Medical/Surgical History: Denies Medical/Surgical History HEENT History: Reports: None Cardiovascular History: Reports: None Respiratory History: Reports: None Gastrointestinal History: Reports: Other (See Below) Other Gastrointestinal History: intermittent epigastric pain and nausea due to gallbladder Genitourinary History: Reports: Other (See Below) (Hx of kidney stones) Musculoskeletal History: Reports: Other (See Below) Other Musculoskeletal History: L knee fluid removal as a child Neurological History: Reports: None Psychiatric History: Reports: None Endocrine/Metabolic History: Reports: None Hematologic History: Reports: None Immunologic History: Reports: None Oncologic (Cancer) History: Reports: None Dermatologic History: Reports: None - Infectious Disease History Infectious Disease History: Reports: None - Past Surgical History Head Surgeries/Procedures: Reports: None GI Surgical History: Reports: Cholecystectomy Other GI Surgeries/Procedures: 11/2017 gallbladder removed Musculoskeletal Surgical History: Reports: Other (See Below) - SUBSTANCE USE Smoking Status *Q: Never Smoker Recreational Drug Use History: Yes Recreational Drug Type: Reports: Marijuana/Hashish Recreational Drug Last Use: last night - HOME MEDS Home Medications: Home Meds . [No Known Home Meds] 01/30/18 [History] - CURRENT (IN HOUSE) MEDS Current Meds: Current Medications Diphenhydramine HCl (Benadryl) 25 mg IVPUSH Q4H PRN PRN Reason: Itching Lactated Ringer's (Ringers, Lactated) 1,000 mls @ 125 mls/hr IV ASDIRECTED [facility] Last Admin: 05/31/18 05:51 Dose: 125 mls/hr Piperacillin Sod/Tazobactam (Sod 3.375 gm/ Sodium Chloride) 50 mls @ 100 mls/ hr IV Q6H [facility] Last Admin: 05/31/18 05:50 Dose: 100 mls/hr Metoclopramide HCl (Reglan) 5 mg IVPUSH Q6H PRN PRN Reason: Nausea Last Admin: 05/30/18 22:22 Dose: 5 mg Ondansetron HCl (Zofran) 4 mg IVPUSH Q6H PRN PRN Reason: Nausea/Vomiting Last Admin: 05/31/18 02:55 Dose: 4 mg Promethazine HCl (Phenergan) 12.5 mg IM Q6H PRN PRN Reason: Nausea Scopolamine (Transderm-Scop) 1.5 mg TRDERM Q72H [facility] Last Admin: 05/30/18 13:44 Dose: 1.5 mg Sodium Chloride (Saline Flush) 10 ml FLUSH ASDIRECTED PRN PRN Reason: Keep Vein Open Sodium Chloride (Saline Flush) 2.5 ml FLUSH ASDIRECTED PRN PRN Reason: Keep Vein Open Sodium Chloride (Normal Saline) 10 ml IV ASDIRECTED PRN PRN Reason: IV Use Discontinued Medications Sodium Chloride (Normal Saline) 1,000 mls @ 999 mls/hr IV STAT ONE Stop: 05/30/18 09:22 Last Admin: 05/30/18 08:36 Dose: 999 mls/hr Sterile Water (Sterile Water For Injection) Confirm Administered Dose 20 mls @ as directed .ROUTE .STK-MED ONE Stop: 05/30/18 11:13 Last Admin: 05/30/18 11:19 Dose: 1 mls/hr Ondansetron HCl (Zofran) 8 mg IVPUSH ONETIME ONE Stop: 05/30/18 08:23 Last Admin: 05/30/18 08:35 Dose: 8 mg Pantoprazole Sodium (Protonix Iv) 80 mg IVPUSH .BOLUS ONE Stop: 05/30/18 11:04 Last Admin: 05/30/18 11:19 Dose: 80 mg
[2018-05-31] MEDS ORDERED: Bupivacaine 0.5% 30 ML SDV ONE (12:40)
[2018-05-31] MEDS ORDERED: Propofol 200 MG/20 ML SDV ONE (12:46)
[2018-05-31] MEDS ORDERED: fentaNYL 100 MCG/2 ML SDV ONE (12:47)
[2018-05-31] MEDS ORDERED: HYDROmorphone 2 MG/ML Syringe ONE (12:47)
[2018-05-31] MEDS ORDERED: Rocuronium 10 MG/ML 10 ML Syringe ONE (12:47)
[2018-05-31] MEDS ORDERED: fentaNYL 100 MCG/2 ML SDV IVPUSH PRN (13:30)
[2018-05-31] MEDS ORDERED: HYDROmorphone 2 MG/ML Syringe IVPUSH ONE (13:30)
[2018-05-31] MEDS ORDERED: Sodium Chloride 0.9% 20 ML ONE (13:58)
[2018-05-31] MEDS ORDERED: Glycopyrrolate 0.2 MG/ML SDV ONE (14:01)
[2018-05-31] MEDS ORDERED: Ondansetron 4 MG/2 ML SDV ONE (14:01)
[2018-05-31] MEDS ORDERED: Neostigmine Methylsulfate 1 MG/ML 5 ML Syringe ONE (14:01)
--- NOTE | 2018-05-31 14:16 | PCM.OPNOTE ---
<Mayra Grant - Last Filed: 05/31/18 14:14> - General Post-Op/Procedure Note Date of Surgery/Procedure: 05/31/18 Operative Procedure(s): Laparoscopic appendectomy Findings: Relatively normal looking appendix. Pre Op Diagnosis: Appendicitis Post-Op Diagnosis: Appendicitis Anesthesia Technique: General ET Tube Primary Surgeon: Mi Meneses Secondary Surgeon: Mayra Grant Fluid Replacement, Intraop: 1,000 Output, Urine Amount: 30 EBL in mLs: 5 Condition: Good Free Text/Narrative:: Intake & Output 05/30/18 05/31/18 05/31/18 22:59 06:59 14:59 Intake Total 331 2392 50 Output Total 200 1300 Balance 131 1092 50 <Mi Meneses - Last Filed: 05/31/18 14:35> - General Post-Op/Procedure Note Findings: Appendix was slightly enlarge but no evidence of gross inflammation or infection Free Text/Narrative:: Intake & Output 05/30/18 05/31/18 05/31/18 22:59 06:59 14:59 Intake Total 331 2392 1050 Output Total 200 1300 60 Balance 131 1092 990
--- NOTE | 2018-05-31 16:53 | OR ---
SURGEON: REAL SERRA MD DATE OF PROCEDURE: 05/31/2018 PREOPERATIVE DIAGNOSES: 1. Intractable nausea. 2. Appendicitis. POSTOPERATIVE DIAGNOSES: 1. Intractable nausea. 2. Appendicitis. PROCEDURE PERFORMED: Laparoscopic appendectomy. 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 ANESTHESIA: General endotracheal anesthesia. FLUIDS: 1 L of crystalloid. ESTIMATED BLOOD LOSS: 5 mL. URINE OUTPUT: 30 mL. FINDINGS: Mildly dilated appendix with no gross signs of inflammation or infection. COMPLICATIONS: None. INDICATIONS: The patient is a 23-year-old female who presents with intractable nausea and vomiting. She had her gallbladder removed last fall. Ever since then, she has been having intermittent nausea, vomiting, and diarrhea. Yesterday, she woke up with intractable nausea and vomiting and as well as diarrhea. She was seen in the emergency room. All of her workup was negative other than a CT scan that showed an appendicular at the base of the appendix and mildly dilated appendix with some possible inflammatory stranding around the tip. The patient was observed overnight. When she attempted to advance her diet to clears, she developed nausea, diarrhea, and sharp lower abdominal pain. Given these findings, the patient and I discussed removing the appendix. I explained the procedure, expected perioperative course, and risks including bleeding, infection, or damage to surrounding structures. After a thorough discussion of all the other alternatives, the patient would like to proceed with an appendectomy. PROCEDURE IN DETAIL: The patient was brought into the OR and placed on the OR table in supine position. A time-out was completed verifying the patient's name, age, date of , allergies, and procedure to be performed. Both arms were tucked to the patient's side and a Stanley catheter placed. The abdomen was prepped and draped in usual standard fashion. I anesthetized an area 2 fingerbreadths below the left subcostal margin in the midclavicular line with 0.5% Marcaine plain. A 1 cm incision was made using an 11 blade. A 5 mm optical trocar was used to gain entry into the abdomen in the left upper quadrant. All layers of the abdominal wall were visualized upon entry. The abdomen was insufflated, and then a 5 mm 30-degree scope was inserted into the abdomen. I inspected the area underneath my initial trocar placement. No damage to surrounding structures was noted. A 5 mm trocar was placed under direct visualization just left and lateral of the umbilicus. A 12 mm trocar was placed in the left lower quadrant under direct visualization as well. The patient was placed into Trendelenburg position and airplaned slightly to the left. I turned my attention to the right lower quadrant. I identified the cecum. Preoperative imaging showed that the appendix was retrocecal and I found this as well. The colon was rolled medially I identified the appendix. The appendix appeared slightly dilated, but there was no signs of gross inflammation or infection. The tip of the appendix was grasped and I took down the retroperitoneal attachments and the appendiceal mesentery using a Harmonic device. This allowed me to mobilize the appendix and bring it anterior. Once the appendix was freed from the appendiceal mesentery and its retroperitoneal attachments, I took a photograph of it. An endoscopic stapling device was brought into the field and I stapled and transected across the base of the appendix where it was inserted upon the cecum. The appendix was then placed in an EndoCatch bag and removed through the 12 mm port site. I replaced my port and inspected the abdomen. There was some omentum scarred into the gallbladder fossa, but other than that everything in the abdomen appeared grossly normal. The fascia at the 12 mm trocar site was closed with 0 Vicryl suture using a Luis-Thor device. The 5 mm trocars were removed under direct visualization and the abdomen allowed to desufflate. I then closed the overlying muscle and subcutaneous fat at 12 mm trocar site with interrupted 3-0 Vicryl sutures. The skin was then closed with a running 4- 0 Monocryl stitch. The 5 mm trocar sites were closed with interrupted 4-0 Monocryl sutures. Steri-Strips and sterile dressings were applied. All counts were complete and correct at the end of the case. The patient tolerated the procedure well and was taken to PACU in stable condition. TREVER ABEBE /[id number] YULI
[2018-05-31] MEDS ORDERED: HYDROmorphone 1 MG/ML Syringe IVPUSH PRN (17:06)
[2018-05-31] MEDS: Acetaminophen/oxyCODONE 325-5 MG Tab PO PRN ×2 (17:17→21:20)
[2018-06-01] MEDS: Acetaminophen/oxyCODONE 325-5 MG Tab PO PRN ×2 (01:16→09:13)
[2018-06-01] MEDS ORDERED: Omeprazole 20 MG Cap.CR PO SCH (07:30)
--- NOTE | 2018-06-01 09:24 | PCM48HPAN ---
Post Anesthesia Note - EVALUATION WITHIN 48HRS OF ANESTHETIC Vital Signs in Normal Range: Yes Patient Participated in Evaluation: Yes Respiratory Function Stable: Yes Airway Patent: Yes Cardiovascular Function Stable: Yes Hydration Status Stable: Yes Pain Control Satisfactory: Yes Nausea and Vomiting Control Satisfactory: Yes Mental Status Recovered: Yes Resp Rate: 18 - COMMENTS/OBSERVATIONS Free Text/Narrative:: no anesthesia problems
--- NOTE | 2018-06-01 10:07 | PCM.DCSUM1 ---
Discharge Summary - Hospital Course Free Text/Narrative:: Patient is a 23 year old female who presented to the ER with intractable nausea. She had her gallbladder removed last fall but since then has had ongoing issues with nausea, vomiting and diarrhea. Her workup in the past has been negative. That morning her symptoms became significantly worse with some RUQ and epigastric pain. She presented to the ER. Her vitals were stable and lab work up was unremarkable. Physical exam was normal. CT of the abdomen/ pelvis showed a mildly dilated appendix associated with an appendicolith and possible stranding at the tip. She was admitted for observation. She was made NPO with IVF and IV antibiotics. She was feeling slightly better so I tried to advance her diet, but her symptoms came back with worsening abdominal pain. After discussion of both conservative vs surgical options the patient and I agreed to proceed with an appendectomy. The appendix appeared dilated but not grossly inflamed or infected. The rest of her abdomen appeared normal. She did well in the post operative period. She tolerated a diet with no return of symptoms. Her vitals were stable. She was ambulating with good control of her abdominal pain. She had no abdominal pain on physical exam. She was cleared for discharge. - Discharge Data Discharge Date: 06/01/18 Discharge Disposition: Home, Self-Care 01 Condition: Good - Discharge Diagnosis/Problem(s) (1) Abdominal pain SNOMED Code(s): 10504089 ICD Code: R10.9 - UNSPECIFIED ABDOMINAL PAIN Status: Acute Current Visit : Yes Qualifiers: Abdominal location: epigastric Qualified Code(s): R10.13 - Epigastric pain (2) Appendicitis SNOMED Code(s): 67937424 ICD Code: K37 - UNSPECIFIED APPENDICITIS Status: Acute Current Visit: Yes - Patient Summary/Data Operative Procedure(s) Performed: Laparoscopic appendectomy - Patient Instructions Diet: Regular Diet as Tolerated Activity: No Lifting Over 20 Pounds (for four weeks ), Rest and Relax Today Driving: Do Not Drive Showering/Bathing: No Showering (until tomorrow ), No Tub Bathing/Swimming (for two weeks ) Wound/Incision Care: Keep Operative Site/Wound Site Clean and Dry Notify Provider of: Fever, Increased Pain, Swelling and Redness, Drainage, Nausea and/or Vomiting - Discharge Plan *PRESCRIPTION DRUG MONITORING PROGRAM REVIEWED*: Yes *COPY OF PRESCRIPTION DRUG MONITORING REPORT IN PATIENT NAVEED: Yes Prescriptions/Med Rec: Ondansetron HCl [Zofran] 4 mg PO Q6HR PRN #30 tablet PRN Reason: Nausea Home Medications: Home Meds Ondansetron HCl [Zofran] 4 mg PO Q6HR PRN #30 tablet 06/01/18 [Rx] Patient Handouts: Abdominal Pain, Adult, [id number] Referrals: Mi Meneses MD [Physician] - 06/05/18 10:30 am - Discharge Summary/Plan Comment DC Time >30 min.: No - General Info Date of Service: 06/01/18 Functional Status: Reports: Pain Controlled, Tolerating Diet, Ambulating, Urinating - Review of Systems General: Reports: No Symptoms HEENT: Reports: No Symptoms Pulmonary: Reports: No Symptoms Cardiovascular: Reports: No Symptoms Gastrointestinal: Reports: No Symptoms Genitourinary: Reports: No Symptoms Musculoskeletal: Reports: No Symptoms - Patient Data Vitals - Most Recent: Last Vital Signs Temp 36.8 C 06/01/18 04:36 Pulse 77 06/01/18 04:36 Resp 18 06/01/18 09:24 BP 89/48 L 06/01/18 04:36 Pulse Ox 98 06/01/18 04:36 Weight - Most Recent: 48.081 kg I&O - Last 24 hours: Intake & Output 05/31/18 06/01/18 06/01/18 22:59 06:59 14:59 Intake Total 0 5679 Output Total 1150 2100 Balance -1150 3579 Med Orders - Current: Current Medications Diphenhydramine HCl (Benadryl) 25 mg IVPUSH Q4H PRN PRN Reason: Itching Fentanyl (Sublimaze) 50 mcg IVPUSH Q5M PRN PRN Reason: Pain (severe 7-10) Stop: 06/01/18 13:31 Hydromorphone HCl (Dilaudid) 0.5 mg IVPUSH Q1H PRN PRN Reason: Pain Metoclopramide HCl (Reglan) 5 mg IVPUSH Q6H PRN PRN Reason: Nausea Last Admin: 05/30/18 22:22 Dose: 5 mg Omeprazole (Omeprazole) 20 mg PO ACBREAKFAST KEI Last Admin: 06/01/18 06:34 Dose: 20 mg Ondansetron HCl (Zofran) 4 mg IVPUSH Q6H PRN PRN Reason: Nausea/Vomiting Last Admin: 05/31/18 02:55 Dose: 4 mg Oxycodone/Acetaminophen (Percocet 325-5 Mg) 2 tab PO Q4H PRN PRN Reason: Pain Last Admin: 06/01/18 09:13 Dose: 2 tab Promethazine HCl (Phenergan) 12.5 mg IM Q6H PRN PRN Reason: Nausea Scopolamine (Transderm-Scop) 1.5 mg TRDERM Q72H KEI Last Admin: 05/30/18 13:44 Dose: 1.5 mg Sodium Chloride (Saline Flush) 10 ml FLUSH ASDIRECTED PRN PRN Reason: Keep Vein Open Sodium Chloride (Saline Flush) 2.5 ml FLUSH ASDIRECTED PRN PRN Reason: Keep Vein Open Sodium Chloride (Normal Saline) 10 ml IV ASDIRECTED PRN PRN Reason: IV Use Discontinued Medications Bupivacaine HCl (Marcaine 0.5%) Confirm Administered Dose 30 ml .ROUTE .STK-MED ONE Stop: 05/31/18 12:41 Fentanyl (Sublimaze) Confirm Administered Dose 100 mcg .ROUTE .STK-MED ONE Stop: 05/31/18 12:48 Glycopyrrolate (Robinul) Confirm Administered Dose 0.4 mg .ROUTE .STK-MED ONE Stop: 05/31/18 14:02 Hydromorphone HCl (Dilaudid) Confirm Administered Dose 2 mg .ROUTE .STK-MED ONE Stop: 05/31/18 12:48 Hydromorphone HCl (Dilaudid) 2 mg IVPUSH ONETIME ONE Stop: 05/31/18 13:31 Last Admin: 05/31/18 17:18 Dose: Not Given Sodium Chloride (Normal Saline) 1,000 mls @ 999 mls/hr IV STAT ONE Stop: 05/30/18 09:22 Last Admin: 05/30/18 08:36 Dose: 999 mls/hr Sterile Water (Sterile Water For Injection) Confirm Administered Dose 20 mls @ as directed .ROUTE .STK-MED ONE Stop: 05/30/18 11:13 Last Admin: 05/30/18 11:19 Dose: 1 mls/hr Lactated Ringer's (Ringers, Lactated) 1,000 mls @ 125 mls/hr IV ASDIRECTED [facility] Last Admin: 05/31/18 22:51 Dose: 125 mls/hr Piperacillin Sod/Tazobactam (Sod 3.375 gm/ Sodium Chloride) 50 mls @ 100 mls/ hr IV Q6H [facility] Last Admin: 05/31/18 12:03 Dose: 100 mls/hr Lidocaine HCl (Xylocaine-Mpf 1%) Confirm Administered Dose 5 mls @ as directed .ROUTE .STK-MED ONE Stop: 05/31/18 12:48 Sodium Chloride (Normal Saline) Confirm Administered Dose 20 mls @ as directed .ROUTE .STK-MED ONE Stop: 05/31/18 13:59 Neostigmine Methylsulfate (Neostigmine) Confirm Administered Dose 5 mg .ROUTE .STK-MED ONE Stop: 05/31/18 14:02 Ondansetron HCl (Zofran) 8 mg IVPUSH ONETIME ONE Stop: 05/30/18 08:23 Last Admin: 05/30/18 08:35 Dose: 8 mg Ondansetron HCl (Zofran) Confirm Administered Dose 4 mg .ROUTE .STK-MED ONE Stop: 05/31/18 14:02 Pantoprazole Sodium (Protonix Iv) 80 mg IVPUSH .BOLUS ONE Stop: 05/30/18 11:04 Last Admin: 05/30/18 11:19 Dose: 80 mg Propofol (Diprivan 20 Ml) Confirm Administered Dose 200 mg .ROUTE .STK-MED ONE Stop: 05/31/18 12:47 Rocuronium [place] (Zemuron) Confirm Administered Dose 100 mg .ROUTE .STK-MED ONE Stop: 05/31/18 12:48 - Exam General: Reports: Alert, Oriented, Cooperative, No Acute Distress HEENT: Reports: Pupils Equal, Pupils Reactive, EOMI, Mucous Membr. Moist/[place] Lungs: Reports: Normal Respiratory Effort Cardiovascular: Reports: Regular Rate GI/Abdominal Exam: Normal Bowel Sounds, Soft, Non-Tender, No Distention, No Mass , Other (incisions clean dry and intact) Back Exam: Reports: Normal Inspection, Full Range of Motion Skin: Reports: Warm, Dry, Intact Wound/Incisions: Reports: Healing Well, Dressing Dry and Intact Psy/Mental Status: Reports: Alert, Normal Affect, Normal Mood
== END 2018-06-01 12:20 | disposition home or self-care (01) ==
LOC: MW.ED 08:18 → MW.MS 12:46
PROVIDERS: ADMIT Surgery; ATTEND Surgery
DX: K35.80 Unspecified acute appendicitis (principal); Z91.040 Latex allergy status; Z91.018 Allergy to other foods; Z91.010 Allergy to peanuts
CPT/HCPCS: 36415; 44970; 74176; 80053; 81025; 83690; 85025; 86677; 96361; 96374; 96375; 99285; A9270; C1776; C9113; J1170; J2001; J2405; J2543; J2704; J2765; J3010; J3490; J7040; J7050; J7120; 88304; 96365; 96366; 96376; 99283; G0378

== ENCOUNTER 2018-08-17 07:38 | Emergency (ER) | payer SELFPAY ==
[2018-08-17] MEDS ORDERED: Sodium Chloride 0.9% 10 ML Syringe FLUSH PRN (07:53)
[2018-08-17] MEDS ORDERED: Ondansetron 4 MG/2 ML SDV IVPUSH ONE (07:53)
[2018-08-17] MEDS ORDERED: Sodium Chloride 0.9% 1,000 ML IV ONE (07:53)
[2018-08-17] MEDS ORDERED: Sodium Chloride 0.9% 2.5 ML Syringe FLUSH PRN (07:53)
--- NOTE | 2018-08-17 08:37 | EDM.PDOC ---
ED HPI GENERAL MEDICAL PROBLEM - General Chief Complaint: Abdominal Pain Stated Complaint: ABDOMINAL PAIN, CRAMPS, SURGERY IN JUNE Time Seen by Provider: 08/17/18 07:49 Source of Information: Reports: Patient History Limitations: Reports: No Limitations - History of Present Illness INITIAL COMMENTS - FREE TEXT/NARRATIVE: History of present illness: []Patient has had left lower quadrant and pelvic spasms and cramps for one week. Patient had an appendectomy in May and a month before that had a cholecystectomy. Patient states she has not felt well since. Is no fevers, chills or vomiting but is very nauseous. She states it is possible she is . Patient has no abnormal vaginal discharge or bleeding. Review of systems: As per history of present illness and below otherwise all systems reviewed and negative. Past medical history: As per history of present illness and as reviewed below otherwise noncontributory. Surgical history: As per history of present illness and as reviewed below otherwise noncontributory. Social history: No reported history of drug or alcohol abuse. Family history: As per history of present illness and as reviewed below otherwise noncontributory. Physical exam: General: Well developed, well nourished in NAD HEENT: Atraumatic, normocephalic, pupils reactive, negative for conjunctival pallor or scleral icterus, mucous membranes moist, throat clear, neck supple, nontender, trachea midline. Lungs: Clear to auscultation, breath sounds equal bilaterally, chest nontender. Heart: S1S2, regular, negative for clicks, rubs, or JVD. Abdomen: NABS, Soft, nondistended, nontender. Negative for masses or hepatosplenomegaly. Negative for costovertebral tenderness. Pelvis: Stable nontender. Genitourinary: Deferred. Rectal: Deferred. Extremities: Atraumatic, negative for cords or calf pain. Neurovascular unremarkable. Neuro: Awake, alert, oriented. Cranial nerves II through XII unremarkable. Cerebellum unremarkable. Motor and sensory unremarkable throughout. Exam nonfocal. Skin:warm and dry Diagnostics: CBC, chemistry, pace, UA, hCG Quant, Rh, pelvic ultrasound- 1. There is a cystic structure with probable yolk sac in the endometrial complex. An early IUP is favored. 2. There is no extra ovarian adnexal mass, or significant free fluid in the pelvis. 3. Sonographic and serologic follow-up are advised for this finding. 4. No evidence on grayscale imaging, or color/spectral Doppler, for ovarian torsion. Therapeutics: IV hydration, Zofran ED Course: Stable Impression: Early IUP with yolk sac Prescriptions: none Plan: Follow-up women's health Definitive disposition and diagnosis as appropriate pending reevaluation and review of above. Left Lower Pelvic Pain Score (Numeric/FACES): 5 - Related Data Allergies Allergy/AdvReac Type Severity Reaction Status Date / Time almond Allergy Rash Verified 08/17/18 07:51 latex Allergy Rash Verified 08/17/18 07:51 peanut Allergy Swelling Verified 08/17/18 07:51 powder in gloves Allergy Rash Uncoded 05/30/18 08:29 Home Meds: Home Meds . [No Known Home Meds] 08/17/18 [History] Past Medical History - Past Health History Medical/Surgical History: Denies Medical/Surgical History HEENT History: Reports: None Cardiovascular History: Reports: None Respiratory History: Reports: None Gastrointestinal History: Reports: Other (See Below) Other Gastrointestinal History: intermittent epigastric pain and nausea due to gallbladder Genitourinary History: Reports: Other (See Below) Musculoskeletal History: Reports: Other (See Below) Other Musculoskeletal History: L knee fluid removal as a child Neurological History: Reports: None Psychiatric History: Reports: None Endocrine/Metabolic History: Reports: None Hematologic History: Reports: None Immunologic History: Reports: None Oncologic (Cancer) History: Reports: None Dermatologic History: Reports: None - Infectious Disease History Infectious Disease History: Reports: None - Past Surgical History Head Surgeries/Procedures: Reports: None GI Surgical History: Reports: Appendectomy, Cholecystectomy Musculoskeletal Surgical History: Reports: Other (See Below) Social & Family History - Family History Family Medical History: Noncontributory - Tobacco Use Smoking Status *Q: Never Smoker - Caffeine Use Caffeine Use: Reports: Soda, Tea - Recreational Drug Use Recreational Drug Use: Yes Drug Use in Last 12 Months: Yes Recreational Drug Type: Reports: Marijuana/Hashish Recreational Drug Use Frequency: Daily ED ROS GENERAL - Review of Systems Review Of Systems: ROS reveals no pertinent complaints other than HPI. ED EXAM, GI/ABD - Physical Exam Exam: See Below Course - Vital Signs Last Recorded V/S: Last Vital Signs Temp 97.7 F 08/17/18 07:48 Pulse 89 08/17/18 10:30 Resp 18 08/17/18 10:30 BP 112/58 L 08/17/18 10:30 Pulse Ox 98 08/17/18 10:30 - Orders/Labs/Meds Orders: Active Orders 24 hr Category Date Time Status Sodium Chloride 0.9% [Saline Flush] Med 08/17/18 07:53 Active 10 ml FLUSH ASDIRECTED PRN Sodium Chloride 0.9% [Saline Flush] Med 08/17/18 07:53 Active 2.5 ml FLUSH ASDIRECTED PRN Saline Lock Insert [OM.PC] Stat Oth 08/17/18 07:53 Ordered Medication Orders Sodium Chloride (Saline Flush) 10 ml FLUSH ASDIRECTED PRN PRN Reason: Keep Vein Open Last Admin: 08/17/18 08:19 Dose: 10 ml Sodium Chloride (Saline Flush) 2.5 ml FLUSH ASDIRECTED PRN PRN Reason: Keep Vein Open Last Admin: 08/17/18 08:19 Dose: 2.5 ml Labs: Laboratory Tests 08/17/18 08/17/18 08/17/18 Range/Units 08:20 08:20 08:20 WBC 5.74 (4.0-11.0) K/uL RBC 4.67 (4.30-5.90) M/uL Hgb 14.4 (12.0-16.0) g/dL Hct 41.6 (36.0-46.0) % MCV 89.1 (80.0-98.0) fL MCH 30.8 (27.0-32.0) pg MCHC 34.6 (31.0-37.0) g/dL RDW Std Deviation 42.3 (28.0-62.0) fl RDW Coeff of Robert 13 (11.0-15.0) % Plt Count 313 (150-400) K/uL MPV 10.10 (7.40-12.00) fL Neut % (Auto) 61.4 (48.0-80.0) % Lymph % (Auto) 29.1 (16.0-40.0) % Schleicher % (Auto) 8.7 (0.0-15.0) % Eos % (Auto) 0.3 (0.0-7.0) % Baso % (Auto) 0.5 (0.0-1.5) % Neut # (Auto) 3.5 (1.4-5.7) K/uL Lymph # (Auto) 1.7 (0.6-2.4) K/uL Schleicher # (Auto) 0.5 (0.0-0.8) K/uL Eos # (Auto) 0.0 (0.0-0.7) K/uL Baso # (Auto) 0.0 (0.0-0.1) K/uL Nucleated RBC % 0.0 /100WBC Nucleated RBCs # 0 K/uL Sodium 137 (136-145) mmol/L Potassium 3.6 (3.5-5.1) mmol/L Chloride 103 (98-107) mmol/L Carbon Dioxide 22.6 (21.0-32.0) mmol/L BUN 10 (7.0-18.0) mg/dL Creatinine 0.6 (0.6-1.0) mg/dL Est Cr Clr Drug Dosing 110.05 mL/min Estimated GFR (MDRD) > 60.0 ml/min Glucose 103 (74-106) mg/dL Calcium 8.6 (8.5-10.1) mg/dL Total Bilirubin 0.5 (0.2-1.0) mg/dL AST 14 L (15-37) IU/L ALT 15 (14-63) IU/L Alkaline Phosphatase 49 (46-116) U/L Total Protein 7.3 (6.4-8.2) g/dL Albumin 4.1 (3.4-5.0) g/dL Globulin 3.2 (2.6-4.0) g/dL Albumin/Globulin Ratio 1.3 (0.9-1.6) Lipase 54 L (73-393) U/L HCG, Quant 7885.0 mIU/mL Urine Color YELLOW Urine Appearance CLEAR Urine pH 6.5 (5.0-8.0) Ur Specific [place] 1.020 (1.001-1.035) Urine Protein NEGATIVE (NEGATIVE) mg/dL Urine Glucose (UA) NEGATIVE (NEGATIVE) mg/dL Urine Ketones NEGATIVE (NEGATIVE) mg/dL Urine Occult Blood TRACE-LYSED H (NEGATIVE) Urine Nitrite NEGATIVE (NEGATIVE) Urine Bilirubin NEGATIVE (NEGATIVE) Urine Urobilinogen 1.0 (<2.0) EU/dL Ur Leukocyte Esterase NEGATIVE (NEGATIVE) Urine RBC 0-2 (0-2/HPF) Urine WBC 0-2 (0-5/HPF) Ur Epithelial Cells FEW (NONE-FEW) Urine Bacteria 1+ H (NEGATIVE) Urine Mucus LIGHT (NONE-MOD) Blood Type 08/17/18 Range/Units 08:20 WBC (4.0-11.0) K/uL RBC (4.30-5.90) M/uL Hgb (12.0-16.0) g/dL Hct (36.0-46.0) % MCV (80.0-98.0) fL MCH (27.0-32.0) pg MCHC (31.0-37.0) g/dL RDW Std Deviation (28.0-62.0) fl RDW Coeff of Robert (11.0-15.0) % Plt Count (150-400) K/uL MPV (7.40-12.00) fL Neut % (Auto) (48.0-80.0) % Lymph % (Auto) (16.0-40.0) % Schleicher % (Auto) (0.0-15.0) % Eos % (Auto) (0.0-7.0) % Baso % (Auto) (0.0-1.5) % Neut # (Auto) (1.4-5.7) K/uL Lymph # (Auto) (0.6-2.4) K/uL Schleicher # (Auto) (0.0-0.8) K/uL Eos # (Auto) (0.0-0.7) K/uL Baso # (Auto) (0.0-0.1) K/uL Nucleated RBC % /100WBC Nucleated RBCs # K/uL Sodium (136-145) mmol/L Potassium (3.5-5.1) mmol/L Chloride (98-107) mmol/L Carbon Dioxide (21.0-32.0) mmol/L BUN (7.0-18.0) mg/dL Creatinine (0.6-1.0) mg/dL Est Cr Clr Drug Dosing mL/min Estimated GFR (MDRD) ml/min Glucose (74-106) mg/dL Calcium (8.5-10.1) mg/dL Total Bilirubin (0.2-1.0) mg/dL AST (15-37) IU/L ALT (14-63) IU/L Alkaline Phosphatase (46-116) U/L Total Protein (6.4-8.2) g/dL Albumin (3.4-5.0) g/dL Globulin (2.6-4.0) g/dL Albumin/Globulin Ratio (0.9-1.6) Lipase (73-393) U/L HCG, Quant mIU/mL Urine Color Urine Appearance Urine pH (5.0-8.0) Ur Specific [place] (1.001-1.035) Urine Protein (NEGATIVE) mg/dL Urine Glucose (UA) (NEGATIVE) mg/dL Urine Ketones (NEGATIVE) mg/dL Urine Occult Blood (NEGATIVE) Urine Nitrite (NEGATIVE) Urine Bilirubin (NEGATIVE) Urine Urobilinogen (<2.0) EU/dL Ur Leukocyte Esterase (NEGATIVE) Urine RBC (0-2/HPF) Urine WBC (0-5/HPF) Ur Epithelial Cells (NONE-FEW) Urine Bacteria (NEGATIVE) Urine Mucus (NONE-MOD) Blood Type A POSITIVE Meds: Medications Generic Name Dose Route Start Last Admin Trade Name Freq PRN Reason Stop Dose Admin Sodium Chloride 10 ml 08/17/18 07:53 08/17/18 08:19 Saline Flush FLUSH 10 ml ASDIRECTED PRN Administration Keep Vein Open Sodium Chloride 2.5 ml 08/17/18 07:53 08/17/18 08:19 Saline Flush FLUSH 2.5 ml ASDIRECTED PRN Administration Keep Vein Open Discontinued Medications Generic Name Dose Route Start Last Admin Trade Name Freq PRN Reason Stop Dose Admin Sodium Chloride 1,000 mls @ 999 mls/hr 08/17/18 07:53 08/17/18 08:19 Normal Saline IV 08/17/18 08:53 999 mls/hr .Bolus ONE Administration Ondansetron HCl 4 mg 08/17/18 07:53 08/17/18 08:19 Zofran IVPUSH 08/17/18 07:54 4 mg ONETIME ONE Administration Departure - Departure Time of Disposition: 11:44 Disposition: Home, Self-Care 01 Condition: Good Clinical Impression: Early stage of - Discharge Information *PRESCRIPTION DRUG MONITORING PROGRAM REVIEWED*: No *COPY OF PRESCRIPTION DRUG MONITORING REPORT IN PATIENT NAVEED: No Referrals: PCP,None [Primary Care Provider] - Forms: ED Department Discharge Additional Instructions: The following information is given to patients seen in the emergency department who are being discharged to home. This information is to outline your options for follow-up care. We provide all patients seen in our emergency department with a follow-up referral. The need for follow-up, as well as the timing and circumstances, are variable depending upon the specifics of your emergency department visit. If you don't have a primary care physician on staff, we will provide you with a referral. We always advise you to contact your personal physician following an emergency department visit to inform them of the circumstance of the visit and for follow-up with them and/or the need for any referrals to a consulting specialist. The emergency department will also refer you to a specialist when appropriate. This referral assures that you have the opportunity for follow-up care with a specialist. All of these measure are taken in an effort to provide you with optimal care, which includes your follow-up. Under all circumstances we always encourage you to contact your private physician who remains a resource for coordinating your care. When calling for follow-up care, please make the office aware that this follow-up is from your recent emergency room visit. If for any reason you are refused follow-up, please contact the [facility] Emergency Department at and asked to speak to the emergency department charge nurse. Follow-up with [facility] - My Orders Last 24 Hours: My Active Orders 08/17/18 07:53 Sodium Chloride 0.9% [Saline Flush] 10 ml FLUSH ASDIRECTED PRN Sodium Chloride 0.9% [Saline Flush] 2.5 ml FLUSH ASDIRECTED PRN Saline Lock Insert [OM.PC] Stat - Assessment/Plan Last 24 Hours: My Active Orders 08/17/18 07:53 Sodium Chloride 0.9% [Saline Flush] 10 ml FLUSH ASDIRECTED PRN Sodium Chloride 0.9% [Saline Flush] 2.5 ml FLUSH ASDIRECTED PRN Saline Lock Insert [OM.PC] Stat
[2018-08-17 09:20] LABS: CHLORIDE,CL 103 mmol/L (98-107); SODIUM,NA 137 mmol/L (136-145)
--- NOTE | 2018-08-17 11:37 | US ---
INDICATION: CRAMPING IN FIRST TRIMESTER Indication: Cramping in 1st trimester. Technique: Endovaginal imaging of the pelvis was obtained to better evaluate the adnexa and endometrial complex. Color/spectral Doppler was performed to evaluate for ovarian torsion. Comparison: None. Findings: Uterine corpus measures 8.3 x 3.7 x 4.7 cm. There is a cystic structure present in the endometrial complex, with a probable yolk sac. There is no pole. There is no extra ovarian adnexal mass. The left ovary measures 3.3 x 1.6 x 2.8 cm. Normal, low resistance arterial blood flow is preserved to the left ovary on color/spectral Doppler. The right ovary measures 3.0 by 3.3 x 2.1 cm. There is a probable corpus luteum in the right ovary measuring 1.9 x 1.6 x 2.0 cm. Normal, low resistance arterial blood flow is preserved to the right ovary on color/spectral Doppler. Small amount of free fluid in the rectovaginal pouch of Allen. No large volume hemoperitoneum. Gestational sac measures 6 x 4 x 7 mm. Impression: 1. There is a cystic structure with probable yolk sac in the endometrial complex. An early IUP is favored. 2. There is no extra ovarian adnexal mass, or significant free fluid in the pelvis. 3. Sonographic and serologic follow-up are advised for this finding. 4. No evidence on grayscale imaging, or color/spectral Doppler, for ovarian torsion. Dictated by Jamal Richard MD @ 08/17/2018 11:35:17 AM Dictated by: Jamal Richard MD @ 08/17/2018 11:36:03 (Electronically Signed)
== END 2018-08-17 11:55 | disposition home or self-care (01) ==
LOC: MW.ED 07:38
DX: R10.32 Left lower quadrant pain (principal); Z33.1 Pregnant state, incidental; Z91.018 Allergy to other foods; Z91.010 Allergy to peanuts; Z98.890 Other specified postprocedural states
CPT/HCPCS: 36415; 76817; 80053; 81001; 83690; 84702; 85025; 86900; 86901; 96361; 96374; 99284; J2405; J7040

== ENCOUNTER 2019-03-24 11:56 | Emergency (ER) | payer SELFPAY ==
[2019-03-24] MEDS ORDERED: Ondansetron 4 MG/2 ML SDV IVPUSH ONE (12:15)
[2019-03-24] MEDS ORDERED: Sodium Chloride 0.9% 1,000 ML IV ONE (12:15)
--- NOTE | 2019-03-24 12:19 | EDM.PDOC ---
ED HPI GENERAL MEDICAL PROBLEM - General Chief Complaint: Gastrointestinal Problem Stated Complaint: DEHYDRATED Time Seen by Provider: 03/24/19 12:06 Source of Information: Reports: Patient History Limitations: Reports: No Limitations - History of Present Illness INITIAL COMMENTS - FREE TEXT/NARRATIVE: HISTORY AND PHYSICAL: History of present illness: Patient is a 24-year-old female who presents to the ED today with concern of vomiting since yesterday. Patient states over the course of the past week she is also had a cough and felt like she had fevers initially with the onset of cough approximately 1 week ago. Patient states she still has the cough but the fevers have resolved. Patient states starting yesterday she started vomiting and has not been able to keep any fluids down. Patient states she takes any sort of sip or drink of fluid and throws it up within 5 to 10 minutes. Patient states she has a history of appendectomy and cholecystectomy but denies any other health history. Patient denies any abdominal pain at this time. Patient denies fever, chills, chest pain, shortness of breath, or cough. Denies headache, neck stiff ness, change in vision, syncope, or near syncope. Denies abdominal pain, diarrhea, constipation, or dysuria. Has not noted any blood in urine or stool. Patient has been eating and drinking appropriately. Review of systems: As per history of present illness and below otherwise all systems reviewed and negative. Past medical history: As per history of present illness and as reviewed below otherwise noncontributory. Surgical history: As per history of present illness and as reviewed below otherwise noncontributory. Social history: See social history for further information Family history: As per history of present illness and as reviewed below otherwise noncontributory. Physical exam: General: Patient is alert, oriented, and in no acute distress. Patient sitting comfortably on exam table. HEENT: Atraumatic, normocephalic, pupils equal and reactive bilaterally, negative for conjunctival pallor or scleral icterus, mucous membranes moist, TMs normal bilaterally, throat clear, neck supple, nontender, trachea midline. No drooling or trismus noted. No meningeal signs. No hot potato voice noted. Lungs: Clear to auscultation, breath sounds equal bilaterally, chest nontender. Dry cough on exam. Heart: S1S2, regular rate and rhythm without overt murmur Abdomen: Soft, nondistended, nontender. Negative for masses or hepatosplenomegaly. Negative for costovertebral tenderness. Pelvis: Stable nontender. Genitourinary: Deferred. Rectal: Deferred. Skin: Intact, warm, dry. No lesions or rashes noted. Extremities: Atraumatic, negative for cords or calf pain. Neurovascular unremarkable. Neuro: Awake, alert, oriented. Cranial nerves II through XII unremarkable. Cerebellum unremarkable. Motor and sensory unremarkable throughout. Exam nonfocal. Notes: Patient is out of treatment window with Tamiflu. Patient able to tolerate p.o. intake in the ED today. Voices understanding and is agreeable to plan of care. Denies any further questions or concerns at this time. Diagnostics: CBC, CMP, UA, hcg serum, lipase, CXR, influenza, strep Therapeutics: NS, Zofran Prescription: Zofran Impression: Influenza B Plan: 1. Take medication as prescribed. Encourage small but frequent sips of fluid to prevent dehydration. 2. You can alternate ibuprofen and Tylenol as directed for pain and discomfort. 3. Follow-up with a primary care provider as discussed. Return to the ED as needed and as discussed. Definitive disposition and diagnosis as appropriate pending reevaluation and review of above. epigastric, ribs Pain Score (Numeric/FACES): 3 - Related Data Allergies Allergy/AdvReac Type Severity Reaction Status Date / Time almond Allergy Rash Verified 03/24/19 12:06 latex Allergy Rash Verified 03/24/19 12:06 peanut Allergy Swelling Verified 03/24/19 12:06 powder in gloves Allergy Rash Uncoded 03/24/19 12:06 Home Meds: Home Meds . [No Known Home Meds] 08/17/18 [History] Pnv No.103/Folic/Om3s/Fish Oil [ Gummies] 1 tab PO DAILY 03/24/19 [ History] Past Medical History - Past Health History Medical/Surgical History: Denies Medical/Surgical History HEENT History: Reports: None Cardiovascular History: Reports: None Respiratory History: Reports: None Gastrointestinal History: Reports: Other (See Below) Other Gastrointestinal History: intermittent epigastric pain and nausea due to gallbladder Genitourinary History: Reports: Other (See Below) Musculoskeletal History: Reports: Other (See Below) Other Musculoskeletal History: L knee fluid removal as a child Neurological History: Reports: None Psychiatric History: Reports: None Endocrine/Metabolic History: Reports: None Hematologic History: Reports: None Immunologic History: Reports: None Oncologic (Cancer) History: Reports: None Dermatologic History: Reports: None - Infectious Disease History Infectious Disease History: Reports: None - Past Surgical History Head Surgeries/Procedures: Reports: None GI Surgical History: Reports: Appendectomy, Cholecystectomy Musculoskeletal Surgical History: Reports: Other (See Below) Social & Family History - Family History Family Medical History: Noncontributory - Tobacco Use Smoking Status *Q: Never Smoker - Caffeine Use Caffeine Use: Reports: Soda, Tea - Recreational Drug Use Recreational Drug Use: Yes Recreational Drug Type: Reports: Marijuana/Hashish Recreational Drug Use Frequency: Weekly ED ROS GENERAL - Review of Systems Review Of Systems: Comprehensive ROS is negative, except as noted in HPI. ED EXAM, GENERAL - Physical Exam Exam: See Below (see dictation) Course - Vital Signs Last Recorded V/S: Last Vital Signs Temp 97.3 F 03/24/19 12:03 Pulse 110 H 03/24/19 12:03 Resp 20 03/24/19 12:03 BP 111/69 03/24/19 12:03 Pulse Ox 98 03/24/19 12:03 - Orders/Labs/Meds Orders: Active Orders 24 hr Category Date Time Status Communication Order [RC] STAT Care 03/24/19 12:16 Active CULTURE STREP A CONFIRMATION [RM] Stat Lab 03/24/19 12:21 Results STREP SCRN A RAPID W CULT CONF [RM] Stat Lab 03/24/19 12:21 Results Labs: Laboratory Tests 03/24/19 03/24/19 03/24/19 Range/Units 13:10 13:10 13:10 WBC 2.94 L (4.0-11.0) K/uL RBC 4.72 (4.30-5.90) M/uL Hgb 14.2 (12.0-16.0) g/dL Hct 42.1 (36.0-46.0) % MCV 89.2 (80.0-98.0) fL MCH 30.1 (27.0-32.0) pg MCHC 33.7 (31.0-37.0) g/dL RDW Std Deviation 43.1 (28.0-62.0) fl RDW Coeff of Robert 13 (11.0-15.0) % Plt Count 168 (150-400) K/uL MPV 11.00 (7.40-12.00) fL Neut % (Auto) 55.1 (48.0-80.0) % Lymph % (Auto) 33.0 (16.0-40.0) % [place] % (Auto) 11.6 (0.0-15.0) % Eos % (Auto) 0.0 (0.0-7.0) % Baso % (Auto) 0.3 (0.0-1.5) % Neut # (Auto) 1.6 (1.4-5.7) K/uL Lymph # (Auto) 1.0 (0.6-2.4) K/uL [place] # (Auto) 0.3 (0.0-0.8) K/uL Eos # (Auto) 0.0 (0.0-0.7) K/uL Baso # (Auto) 0.0 (0.0-0.1) K/uL Nucleated RBC % 0.0 /100WBC Nucleated RBCs # 0 K/uL Sodium 141 (136-145) mmol/L Potassium 4.3 (3.5-5.1) mmol/L Chloride 104 (98-107) mmol/L Carbon Dioxide 25.7 (21.0-32.0) mmol/L BUN 8 (7.0-18.0) mg/dL Creatinine 0.7 (0.6-1.0) mg/dL Est Cr Clr Drug Dosing 95.13 mL/min Estimated GFR (MDRD) > 60.0 ml/min Glucose 92 (74-106) mg/dL Calcium 8.1 L (8.5-10.1) mg/dL Total Bilirubin 0.2 (0.2-1.0) mg/dL AST 17 (15-37) IU/L ALT 22 (14-63) IU/L Alkaline Phosphatase 51 (46-116) U/L Total Protein 7.1 (6.4-8.2) g/dL Albumin 3.8 (3.4-5.0) g/dL Globulin 3.3 (2.6-4.0) g/dL Albumin/Globulin Ratio 1.2 (0.9-1.6) Lipase 56 L (73-393) U/L HCG, Qual NEGATIVE (NEG) Urine Color Urine Appearance Urine pH (5.0-8.0) Ur Specific [place] (1.001-1.035) Urine Protein (NEGATIVE) mg/dL Urine Glucose (UA) (NEGATIVE) mg/dL Urine Ketones (NEGATIVE) mg/dL Urine Occult Blood (NEGATIVE) Urine Nitrite (NEGATIVE) Urine Bilirubin (NEGATIVE) Urine Urobilinogen (<2.0) EU/dL Ur Leukocyte Esterase (NEGATIVE) 03/24/19 Range/Units 13:44 WBC (4.0-11.0) K/uL RBC (4.30-5.90) M/uL Hgb (12.0-16.0) g/dL Hct (36.0-46.0) % MCV (80.0-98.0) fL MCH (27.0-32.0) pg MCHC (31.0-37.0) g/dL RDW Std Deviation (28.0-62.0) fl RDW Coeff of Robert (11.0-15.0) % Plt Count (150-400) K/uL MPV (7.40-12.00) fL Neut % (Auto) (48.0-80.0) % Lymph % (Auto) (16.0-40.0) % [place] % (Auto) (0.0-15.0) % Eos % (Auto) (0.0-7.0) % Baso % (Auto) (0.0-1.5) % Neut # (Auto) (1.4-5.7) K/uL Lymph # (Auto) (0.6-2.4) K/uL [place] # (Auto) (0.0-0.8) K/uL Eos # (Auto) (0.0-0.7) K/uL Baso # (Auto) (0.0-0.1) K/uL Nucleated RBC % /100WBC Nucleated RBCs # K/uL Sodium (136-145) mmol/L Potassium (3.5-5.1) mmol/L Chloride (98-107) mmol/L Carbon Dioxide (21.0-32.0) mmol/L BUN (7.0-18.0) mg/dL Creatinine (0.6-1.0) mg/dL Est Cr Clr Drug Dosing mL/min Estimated GFR (MDRD) ml/min Glucose (74-106) mg/dL Calcium (8.5-10.1) mg/dL Total Bilirubin (0.2-1.0) mg/dL AST (15-37) IU/L ALT (14-63) IU/L Alkaline Phosphatase (46-116) U/L Total Protein (6.4-8.2) g/dL Albumin (3.4-5.0) g/dL Globulin (2.6-4.0) g/dL Albumin/Globulin Ratio (0.9-1.6) Lipase (73-393) U/L HCG, Qual (NEG) Urine Color YELLOW Urine Appearance CLEAR Urine pH 7.0 (5.0-8.0) Ur Specific [place] <= 1.005 (1.001-1.035) Urine Protein NEGATIVE (NEGATIVE) mg/dL Urine Glucose (UA) NEGATIVE (NEGATIVE) mg/dL Urine Ketones NEGATIVE (NEGATIVE) mg/dL Urine Occult Blood NEGATIVE (NEGATIVE) Urine Nitrite NEGATIVE (NEGATIVE) Urine Bilirubin NEGATIVE (NEGATIVE) Urine Urobilinogen 0.2 (<2.0) EU/dL Ur Leukocyte Esterase NEGATIVE (NEGATIVE) Meds: Medications Discontinued Medications Generic Name Dose Route Start Last Admin Trade Name Freq PRN Reason Stop Dose Admin Sodium Chloride 1,000 mls @ 999 mls/hr 03/24/19 12:15 03/24/19 12:31 Normal Saline IV 03/24/19 13:15 999 mls/hr BOLUS ONE Administration Ondansetron HCl 4 mg 03/24/19 12:15 03/24/19 12:31 Zofran IVPUSH 03/24/19 12:16 4 mg ONETIME ONE Administration Departure - Departure Time of Disposition: 14:04 Disposition: Home, Self-Care 01 Clinical Impression: Influenza B - Discharge Information Referrals: PCP,None [Primary Care Provider] - Forms: ED Department Discharge Additional Instructions: The following information is given to patients seen in the emergency department who are being discharged to home. This information is to outline your options for follow-up care. We provide all patients seen in our emergency department with a follow-up referral. The need for follow-up, as well as the timing and circumstances, are variable depending upon the specifics of your emergency department visit. If you don't have a primary care physician on staff, we will provide you with a referral. We always advise you to contact your personal physician following an emergency department visit to inform them of the circumstance of the visit and for follow-up with them and/or the need for any referrals to a consulting specialist. The emergency department will also refer you to a specialist when appropriate. This referral assures that you have the opportunity for follow-up care with a specialist. All of these measure are taken in an effort to provide you with optimal care, which includes your follow-up. Under all circumstances we always encourage you to contact your private physician who remains a resource for coordinating your care. When calling for follow-up care, please make the office aware that this follow-up is from your recent emergency room visit. If for any reason you are refused follow-up, please contact the [facility] Emergency Department at and asked to speak to the emergency department charge nurse. [facility] [address] [place], [place] [id number] [facility] [address] [place] [address] 1. Take medication as prescribed. Encourage small but frequent sips of fluid to prevent dehydration. 2. You can alternate ibuprofen and Tylenol as directed for pain and discomfort. 3. Follow-up with a primary care provider as discussed. Return to the ED as needed and as discussed. Sepsis Event Note - Evaluation Sepsis Screening Result: No Definite Risk - Focused Exam Vital Signs: Vital Signs Temp Pulse Resp BP Pulse Ox 03/24/19 12:03 97.3 F 110 H 20 111/69 98 Date Exam was Performed: 03/24/19 Time Exam was Performed: 14:04 - My Orders Last 24 Hours: My Active Orders 03/24/19 12:16 Communication Order [RC] STAT 03/24/19 12:21 CULTURE STREP A CONFIRMATION [RM] Stat STREP SCRN A RAPID W CULT CONF [RM] Stat - Assessment/Plan Last 24 Hours: My Active Orders 03/24/19 12:16 Communication Order [RC] STAT 03/24/19 12:21 CULTURE STREP A CONFIRMATION [RM] Stat STREP SCRN A RAPID W CULT CONF [RM] Stat
[2019-03-24 13:44] LABS: BLOOD UREA NITROGEN,BUN 8 mg/dL (7.0-18.0); CARBON DIOXIDE,CO2 25.7 mmol/L (21.0-32.0); CHLORIDE,CL 104 mmol/L (98-107); GLUCOSE RANDOM 92 mg/dL (74-106); LIPASE 56 U/L (73-393); POTASSIUM,K 4.3 mmol/L (3.5-5.1); SODIUM,NA 141 mmol/L (136-145)
--- NOTE | 2019-03-24 14:03 | CR ---
Chest: 2 views of the chest were obtained. Comparison: No prior chest imaging is available. Heart size and mediastinum are normal. Lungs are clear with no acute parenchymal change. Bony structures are unremarkable. Impression: 1. Nothing acute is appreciated on 2 view chest x-ray. Diagnostic code #1 This report was dictated in [place] Standard Time
== END 2019-03-24 14:41 | disposition home or self-care (01) ==
LOC: MW.ED 11:56
DX: J10.1 Influenza due to other identified influenza virus with other respiratory manifestations (principal); Z90.49 Acquired absence of other specified parts of digestive tract; Z91.018 Allergy to other foods; Z91.010 Allergy to peanuts; Z91.040 Latex allergy status
CPT/HCPCS: 36415; 71046; 80053; 81003; 83690; 84703; 85025; 87081; 87804; 87880; 96361; 96374; 99284; J2405; J7030; 99283

== ENCOUNTER 2019-04-26 16:49 | Emergency (ER) | payer OTHER ==
[2019-04-26] MEDS ORDERED: Acetaminophen 650 MG in Premix Bag 1 BAG IV ONE (17:56)
--- NOTE | 2019-04-26 18:03 | EDM.PDOC ---
ED HPI GENERAL MEDICAL PROBLEM - General Chief Complaint: ENT Problem Stated Complaint: BROKE HER NOSE Time Seen by Provider: 04/26/19 17:45 Source of Information: Reports: Patient - History of Present Illness INITIAL COMMENTS - FREE TEXT/NARRATIVE: Patient and her boyfriend state that earlier today, they were trying to trim their dog's nails. The dog was very resistant to this and as it struggled to get away, it hit the patient's nose. This occurred around 4:30 PM today. Pt and boyfriend report that the patient's nose bled off and on for about 20 minutes, but it has stopped. The patient's boyfriend says that he "set it back in place", but that they came anyway because patient could not tolerate any more manipulation and she was having pain. Patient reports decreased sensation in the right, but not left, infraorbital area. Onset: Today Nose Pain Score (Numeric/FACES): 9 - Related Data Allergies Allergy/AdvReac Type Severity Reaction Status Date / Time almond Allergy Rash Verified 04/26/19 16:55 latex Allergy Rash Verified 04/26/19 16:55 peanut Allergy Swelling Verified 04/26/19 16:55 powder in gloves Allergy Rash Uncoded 04/26/19 16:55 Home Meds: Home Meds Ondansetron [Zofran ODT] 4 mg PO Q6H PRN #8 tab.dis 03/24/19 [Rx] Pnv No.103/Folic/Om3s/Fish Oil [ Gummies] 1 tab PO DAILY 03/24/19 [ History] Past Medical History - Past Health History Medical/Surgical History: Denies Medical/Surgical History HEENT History: Reports: None Cardiovascular History: Reports: None Respiratory History: Reports: None Gastrointestinal History: Reports: Other (See Below) Other Gastrointestinal History: intermittent epigastric pain and nausea due to gallbladder Genitourinary History: Reports: Other (See Below) Musculoskeletal History: Reports: Other (See Below) Other Musculoskeletal History: L knee fluid removal as a child Neurological History: Reports: None Psychiatric History: Reports: None Endocrine/Metabolic History: Reports: None Hematologic History: Reports: None Immunologic History: Reports: None Oncologic (Cancer) History: Reports: None Dermatologic History: Reports: None - Infectious Disease History Infectious Disease History: Reports: None - Past Surgical History Head Surgeries/Procedures: Reports: None GI Surgical History: Reports: Appendectomy, Cholecystectomy Musculoskeletal Surgical History: Reports: Other (See Below) Social & Family History - Family History Family Medical History: Noncontributory - Tobacco Use Smoking Status *Q: Never Smoker Second Hand Smoke Exposure: No - Caffeine Use Caffeine Use: Reports: Coffee - Recreational Drug Use Recreational Drug Use: No ED ROS ENT - Review of Systems Review Of Systems: See Below (ROS positive for resolved epistaxis, rt infraorbital numbness, nasal swelling. ROS negative for LOC.) Constitutional: Denies: Fever, Chills HEENT: Denies: Eye Pain, Vision Change Musculoskeletal: Denies: Neck Pain ED EXAM, ENT - Physical Exam Exam: See Below Text/Narrative:: General: alert, well appearing, no acute distress HEENT: Normocephalic, PERRL 2 mm bilat, negative for conjunctival pallor or scleral icterus, mucous membranes moist. Bridge of nose is swollen; looks slightly deformed. There is no epistaxis or rhinorrhea at this time. Patient has mild tenderness in the right and left infraorbital regions. No facial bony deformity or crepitus, apart from the deformity observed of the bridge of the nose. No septal hematoma. Throat clear, handling oral secretions well. Neck: supple, nontender, trachea midline. Lungs: Clear to auscultation, breath sounds equal bilaterally, chest nontender. Heart: S1S2, regular, negative for clicks, rubs, or JVD. Skin: warm, dry, good turgor. Neuro: GCS 15, cranial nerves II through XII grossly intact, decreased sensation of the right infraorbital region compared to the left infraorbital region. Differential includes, not limited to: -Nasal contusion versus fracture Patient declines a test and says she is not . I will order Tylenol and a maxillofacial CT. Course - Vital Signs Text/Narrative:: Maxillofacial CT: no air-fluid levels in sinuses; + displaced nasal bone fx 7:38pm [place] transfer line contacted to arr ENT follow p for pt. Dr. Walden to respond. Case d/w him. He states that his office will call pt on Sun04/28/19 betw 8-9am to schedule her appt. Pt informed of this, agrees to be available by phone at that time. Last Recorded V/S: Last Vital Signs Temp 98 F 04/26/19 16:55 Pulse 84 04/26/19 16:55 Resp 16 04/26/19 16:55 BP 137/78 04/26/19 16:55 Pulse Ox 99 04/26/19 16:55 - Orders/Labs/Meds Meds: Medications Discontinued Medications Generic Name Dose Route Start Last Admin Trade Name Freq PRN Reason Stop Dose Admin Acetaminophen 500 mg 04/26/19 18:14 04/26/19 18:20 Tylenol Extra Strength PO 04/26/19 18:15 500 mg ONETIME ONE Administration Acetaminophen 650 mg/ Premix 65 mls @ 400 mls/hr 04/26/19 17:56 04/26/19 19: 30 IV 04/26/19 18:05 Not Given NOW ONE Departure - Departure Time of Disposition: 20:02 Disposition: Home, Self-Care 01 Clinical Impression: Nasal bone fracture Qualifiers: Encounter type: initial encounter - Discharge Information Instructions: Nasal Fracture, [id number] Referrals: PCP,None [Primary Care Provider] - 2 Days (Follow-up at [facility] in [place], [place] on 2019. It is expected that their clinic will call you on 04/28/2019, between 8 AM and 9 AM. If you do not hear from them by 10 AM on Sunday, then please call them [phone]. You should see an ear nose and throat physician within the next week. ) Forms: ED Department Discharge Additional Instructions: The following information is given to patients seen in the emergency department who are being discharged to home. This information is to outline your options for follow-up care. We provide all patients seen in our emergency department with a follow-up referral. The need for follow-up, as well as the timing and circumstances, are variable depending upon the specifics of your emergency department visit. If you don't have a primary care physician on staff, we will provide you with a referral. We always advise you to contact your personal physician following an emergency department visit to inform them of the circumstance of the visit and for follow-up with them and/or the need for any referrals to a consulting specialist. The emergency department will also refer you to a specialist when appropriate. This referral assures that you have the opportunity for follow-up care with a specialist. All of these measure are taken in an effort to provide you with optimal care, which includes your follow-up. Under all circumstances we always encourage you to contact your private physician who remains a resource for coordinating your care. When calling for follow-up care, please make the office aware that this follow-up is from your recent emergency room visit. If for any reason you are refused follow-up, please contact the [facility] Emergency Department at and ask to speak to the emergency department charge nurse. Sepsis Event Note - Evaluation Sepsis Screening Result: No Definite Risk - Focused Exam Vital Signs: Vital Signs Temp Pulse Resp BP Pulse Ox 04/26/19 16:55 98 F 84 16 137/78 99 Date Exam was Performed: 04/26/19 Time Exam was Performed: 20:01
[2019-04-26] MEDS ORDERED: Acetaminophen 500 MG Tab PO ONE (18:14)
--- NOTE | 2019-04-26 19:18 | CT ---
CT facial bones Technique: Multiple axial sections through the facial bones were obtained. Reconstructed coronal and sagittal images were obtained. Findings: Paranasal sinuses are clear. No mucosal thickening or air-fluid levels are seen. Right and left globes are symmetric. No retrobulbar abnormality is appreciated. No discrete soft tissue abnormality is identified. Displaced nasal bone fracture is noted on the right side. There is displacement up to 3.6 mm. No additional facial bone fracture is appreciated. Impression: 1. Displaced right-sided nasal bone fracture as noted above. 2. No other acute finding is seen on CT study of the facial bones. Diagnostic code #3 Study was dictated in [place] Standard Time
== END 2019-04-26 20:24 | disposition home or self-care (01) ==
LOC: MW.ED 16:49
DX: S02.2XXA Fracture of nasal bones, initial encounter for closed fracture (principal); Z91.040 Latex allergy status; Z91.018 Allergy to other foods; Z90.49 Acquired absence of other specified parts of digestive tract; W54.1XXA Struck by dog, initial encounter
CPT/HCPCS: 70486; 99283; A9270

== ENCOUNTER 2020-01-20 04:01 | Emergency (ER) | payer SELFPAY ==
[2020-01-20] MEDS: Ondansetron 4 MG/2 ML SDV IVPUSH ONE (04:40)
[2020-01-20] MEDS: Sodium Chloride 0.9% 1,000 ML IV ONE (04:40)
[2020-01-20] MEDS: Alum Hydrox/Mag Hydrox/Simeth 15 ML, Lidocaine 2% 5 ML PO ONE ×2 (04:40)
[2020-01-20 05:09] LABS: BLOOD UREA NITROGEN,BUN 9 mg/dL (7.0-18.0); CARBON DIOXIDE,CO2 25.2 mmol/L (21.0-32.0); CHLORIDE,CL 102 mmol/L (98-107); GLUCOSE RANDOM 121 mg/dL (74-106); LIPASE 49 U/L (73-393); POTASSIUM,K 3.9 mmol/L (3.5-5.1); SODIUM,NA 137 mmol/L (136-145)
--- NOTE | 2020-01-20 05:34 | EDM.PDOC ---
ED HPI GENERAL MEDICAL PROBLEM - General Chief Complaint: Gastrointestinal Problem Stated Complaint: DEHYDRATION, PAIN Time Seen by Provider: 01/20/20 04:25 Source of Information: Reports: Patient History Limitations: Reports: No Limitations - History of Present Illness INITIAL COMMENTS - FREE TEXT/NARRATIVE: 25-year-old female presents today for nausea vomiting and abdominal pain. Patient states that since yesterday she has been vomiting not been able tolerate p.o. and feeling dehydrated. Patient denies eating new foods any recent travel or antibiotic use. Patient did mention that he smoked marijuana yesterday. Abdomen Pain Score (Numeric/FACES): 4 - Related Data Allergies Allergy/AdvReac Type Severity Reaction Status Date / Time almond Allergy Rash Verified 01/20/20 04:17 latex Allergy Rash Verified 01/20/20 04:17 peanut Allergy Swelling Verified 01/20/20 04:17 powder in gloves Allergy Rash Uncoded 01/20/20 04:17 Home Meds: Home Meds . [No Known Home Meds] 01/20/20 [History] Past Medical History - Past Health History Medical/Surgical History: Denies Medical/Surgical History HEENT History: Reports: None Cardiovascular History: Reports: None Respiratory History: Reports: None Gastrointestinal History: Reports: Other (See Below) Other Gastrointestinal History: intermittent epigastric pain and nausea due to gallbladder Genitourinary History: Reports: None CUT OFF SAWYER LOG History: Reports: None Musculoskeletal History: Reports: Other (See Below) Other Musculoskeletal History: L knee fluid removal as a child Neurological History: Reports: None Psychiatric History: Reports: None Endocrine/Metabolic History: Reports: None Hematologic History: Reports: None Immunologic History: Reports: None Oncologic (Cancer) History: Reports: None Dermatologic History: Reports: None - Infectious Disease History Infectious Disease History: Reports: None - Past Surgical History Head Surgeries/Procedures: Reports: None GI Surgical History: Reports: Appendectomy, Cholecystectomy Musculoskeletal Surgical History: Reports: Other (See Below) Social & Family History - Family History Family Medical History: Noncontributory - Tobacco Use Tobacco Use Status *Q: Never Tobacco User - Caffeine Use Caffeine Use: Reports: Coffee - Recreational Drug Use Recreational Drug Use: No ED ROS GENERAL - Review of Systems Review Of Systems: Comprehensive ROS is negative, except as noted in HPI. GI/Abdominal: Reports: Nausea, Vomiting ED EXAM, GENERAL - Physical Exam Exam: See Below Exam Limited By: No Limitations General Appearance: Alert, No Apparent Distress Eye Exam: Bilateral Eye: EOMI, PERRL Respiratory/Chest: No Respiratory Distress, Lungs Clear, Normal Breath Sounds Cardiovascular: Regular Rate, Rhythm GI/Abdominal: Normal Bowel Sounds, Soft, Non-Tender Extremities: Normal Range of Motion Neurological: Alert, Oriented, CN II-XII Intact Course - Vital Signs Last Recorded V/S: Last Vital Signs Temp 98.3 F 01/20/20 05:45 Pulse 83 01/20/20 05:45 Resp 18 01/20/20 05:45 BP 98/63 01/20/20 05:45 Pulse Ox 96 01/20/20 05:45 - Orders/Labs/Meds Labs: Laboratory Tests 01/20/20 01/20/20 01/20/20 Range/Units 04:20 04:40 04:40 WBC 8.24 (4.0-11.0) K/uL RBC 4.73 (4.30-5.90) M/uL Hgb 14.3 (12.0-16.0) g/dL Hct 42.7 (36.0-46.0) % MCV 90.3 (80.0-98.0) fL MCH 30.2 (27.0-32.0) pg MCHC 33.5 (31.0-37.0) g/dL RDW Std Deviation 42.8 (28.0-62.0) fl RDW Coeff of Robert 13 (11.0-15.0) % Plt Count 308 (150-400) K/uL MPV 10.40 (7.40-12.00) fL Neut % (Auto) 84.5 H (48.0-80.0) % Lymph % (Auto) 12.6 L (16.0-40.0) % Branch % (Auto) 2.7 (0.0-15.0) % Eos % (Auto) 0.0 (0.0-7.0) % Baso % (Auto) 0.2 (0.0-1.5) % Neut # (Auto) 7.0 H (1.4-5.7) K/uL Lymph # (Auto) 1.0 (0.6-2.4) K/uL Branch # (Auto) 0.2 (0.0-0.8) K/uL Eos # (Auto) 0.0 (0.0-0.7) K/uL Baso # (Auto) 0.0 (0.0-0.1) K/uL Nucleated RBC % 0.0 /100WBC Nucleated RBCs # 0 K/uL Sodium 137 (136-145) mmol/L Potassium 3.9 (3.5-5.1) mmol/L Chloride 102 (98-107) mmol/L Carbon Dioxide 25.2 (21.0-32.0) mmol/L BUN 9 (7.0-18.0) mg/dL Creatinine 0.7 (0.6-1.0) mg/dL Est Cr Clr Drug Dosing 94.87 mL/min Estimated GFR (MDRD) > 60.0 ml/min Glucose 121 H (74-106) mg/dL Calcium 9.1 (8.5-10.1) mg/dL Total Bilirubin 0.4 (0.2-1.0) mg/dL AST 23 (15-37) IU/L ALT 25 (14-63) IU/L Alkaline Phosphatase 48 (46-116) U/L Total Protein 7.3 (6.4-8.2) g/dL Albumin 4.2 (3.4-5.0) g/dL Globulin 3.1 (2.6-4.0) g/dL Albumin/Globulin Ratio 1.4 (0.9-1.6) Lipase 49 L (73-393) U/L Urine HCG, Qual NEGATIVE (NEGATIVE) Meds: Medications Discontinued Medications Generic Name Dose Route Start Last Admin Trade Name Freq PRN Reason Stop Dose Admin Al Hydroxide/Mg Hydroxide 15 0 ml 01/20/20 04:29 01/20/20 04:40 ml/ Lidocaine HCl 5 ml PO 01/20/20 04:30 20 each ONETIME ONE Administration Sodium Chloride 1,000 mls @ 999 mls/hr 01/20/20 04:29 01/20/20 04:40 Normal Saline IV 01/20/20 05:29 999 mls/hr .BOLUS ONE Administration Ondansetron HCl 4 mg 01/20/20 04:29 01/20/20 04:40 Zofran IVPUSH 01/20/20 04:30 4 mg ONETIME ONE Administration Departure - Departure Time of Disposition: 05:33 Disposition: Home, Self-Care 01 Clinical Impression: Cannabinoid hyperemesis syndrome - Discharge Information *PRESCRIPTION DRUG MONITORING PROGRAM REVIEWED*: Not Applicable *COPY OF PRESCRIPTION DRUG MONITORING REPORT IN PATIENT NAVEED: Not Applicable Instructions: Nausea and Vomiting, Adult, [id number] Referrals: PCP,None [Primary Care Provider] - Forms: ED Department Discharge Additional Instructions: The following information is given to patients seen in the emergency department who are being discharged to home. This information is to outline your options for follow-up care. We provide all patients seen in our emergency department with a follow-up referral. The need for follow-up, as well as the timing and circumstances, are variable depending upon the specifics of your emergency department visit. If you don't have a primary care physician on staff, we will provide you with a referral. We always advise you to contact your personal physician following an emergency department visit to inform them of the circumstance of the visit and for follow-up with them and/or the need for any referrals to a consulting specialist. The emergency department will also refer you to a specialist when appropriate. This referral assures that you have the opportunity for follow-up care with a specialist. All of these measure are taken in an effort to provide you with optimal care, which includes your follow-up. Under all circumstances we always encourage you to contact your private physician who remains a resource for coordinating your care. When calling for follow-up care, please make the office aware that this follow-up is from your recent emergency room visit. If for any reason you are refused follow-up, please contact the [facility] Emergency Department at and asked to speak to the emergency department charge nurse. Please follow up with your primary care physician. If you do not have a primary care physician, see below: [facility] [address] [place] [id number] [facility] [address] [place] [id number] Please follow-up with your primary care physician if you have any nausea vomiting or cannot tolerate any food or water please return to the ED. Sepsis Event Note (ED) - Evaluation Sepsis Screening Result: No Definite Risk - Focused Exam Vital Signs: Vital Signs Temp Pulse Resp BP Pulse Ox 01/20/20 05:45 98.3 F 83 18 98/63 96 01/20/20 04:17 98.2 F 93 18 104/71 98 - Assessment/Plan Plan: Patient is a 25-year-old female presents today for nausea vomiting jazlyn pain. Patient had no abdominal tenderness on examination. Patient labs reviewed given IV fluids and Zofran patient feels better stable for discharge home.
== END 2020-01-20 05:45 | disposition home or self-care (01) ==
LOC: MW.ED 04:01
DX: R11.2 Nausea with vomiting, unspecified (principal); F12.90 Cannabis use, unspecified, uncomplicated; Z91.018 Allergy to other foods; Z91.040 Latex allergy status; Z91.010 Allergy to peanuts
CPT/HCPCS: 36415; 80053; 81025; 83690; 85025; 96361; 96374; 99284; A9270; J2405; J7030; 99283

== ENCOUNTER 2020-06-21 10:42 | Emergency (ER) | payer SELFPAY ==
--- NOTE | 2020-06-21 10:50 | EDM.PDOC ---
ED HPI GENERAL MEDICAL PROBLEM - General Chief Complaint: General Stated Complaint: EYE TWITCH Time Seen by Provider: 06/21/20 10:45 Source of Information: Reports: Patient History Limitations: Reports: No Limitations - History of Present Illness INITIAL COMMENTS - FREE TEXT/NARRATIVE: HISTORY AND PHYSICAL: History of present illness: Patient is a 25-year-old female who presents to the ED today with concern of her right eye twitching with increased awareness of her right eye x 3 days. Patient states that she has recently stopped smoking marijuana as she is trying to quit and states that she is noticing more awareness of different parts of her body. Patient states 3 days ago she started noticing her right eye occasionally twitching and has an increased awareness of her right eye with movement. Patient denies any pain of her right eye or any visual changes but states that she is "just more aware" of her eye moving. Denies any trauma or injury to her right eye or foreign body to the eye. Denies redness or drainage of the eye. Does not use contacts or glasses. Patient denies fever, chills, chest pain, shortness of breath, or cough. Denies headache, neck stiff ness, change in vision, syncope, or near syncope. Denies nausea, vomiting, abdominal pain, diarrhea, constipation, or dysuria. Has not noted any blood in urine or stool. Patient has been eating and drinking appropriately. Review of systems: As per history of present illness and below otherwise all systems reviewed and negative. Past medical history: As per history of present illness and as reviewed below otherwise noncontributory. Surgical history: As per history of present illness and as reviewed below otherwise noncontributory. Social history: See social history for further information Family history: As per history of present illness and as reviewed below otherwise noncontributory. Physical exam: General: Patient is alert, oriented, and in no acute distress. Patient sitting comfortably on exam table. Vitals stable and reviewed by me. HEENT: Visual acuity intact. Tonopen pressure of right eye 17. EOMS intact without pain or difficulty. Fluroscene stain performed without evidence of corneal abrasion/ulceration. Bilateral upper and lower lids everted without sign of foreign body. Negative for corneal opacity, hyphema, or hypopyon. No erythema or drainage noted of bilateral eyes. No pain to palpation of the right temporal area. Lower eyelid twitch noted on the right. Otherwise, atraumatic, normocephalic, pupils equal and reactive bilaterally, negative for conjunctival pallor or scleral icterus, mucous membranes moist, TMs normal bilaterally, throat clear, neck supple, nontender, trachea midline. No drooling or trismus noted. No meningeal signs. No hot potato voice noted. Lungs: Clear to auscultation, breath sounds equal bilaterally, chest nontender. Heart: S1S2, regular rate and rhythm without overt murmur Abdomen: Soft, nondistended, nontender. Negative for masses or hepatosplenomegaly. Negative for costovertebral tenderness. Pelvis: Stable nontender. Genitourinary: Deferred. Rectal: Deferred. Skin: Intact, warm, dry. No lesions or rashes noted. Extremities: Atraumatic, negative for cords or calf pain. Neurovascular unremarkable. Neuro: Awake, alert, oriented. Cranial nerves II through XII unremarkable. Cerebellum unremarkable. Motor and sensory unremarkable throughout. Exam nonfocal. Notes: On initial exam, patient is vitally stable and nontoxic-appearing. She is well- appearing on exam. Patient does have a lower eyelid twitch on the right noted with intact visual acuity and pressure of the right eye of 17. Discussed importance for following up with an security checker for formal eye exam and her primary care provider. Signs and symptoms that were prompt return to the ED thoroughly discussed with patient. Discussed importance for follow-up with the security checker and her primary care provider. Voices understanding and is agreeable to plan of care. Denies any further questions or concerns at this time. Diagnostics: Fluorescence lomax lamp, tonopen Therapeutics: Tetracaine Prescription: None Impression: Lower eyelid twitch, right Plan: 1. Follow up with the security checker and your primary care provider as discussed. Return to the ED as needed and as discussed. Definitive disposition and diagnosis as appropriate pending reevaluation and review of above. Eye Pain Score (Numeric/FACES): 4 - Related Data Allergies Allergy/AdvReac Type Severity Reaction Status Date / Time almond Allergy Rash Verified 06/21/20 11:09 latex Allergy Rash Verified 06/21/20 11:09 peanut Allergy Swelling Verified 06/21/20 11:09 powder in gloves Allergy Rash Uncoded 06/21/20 11:09 Home Meds: Home Meds . [No Known Home Meds] 01/20/20 [History] Past Medical History - Past Health History Medical/Surgical History: Denies Medical/Surgical History HEENT History: Reports: None Cardiovascular History: Reports: None Respiratory History: Reports: None Gastrointestinal History: Reports: Other (See Below) Other Gastrointestinal History: intermittent epigastric pain and nausea due to gallbladder Genitourinary History: Reports: None [employer] History: Reports: None Musculoskeletal History: Reports: Other (See Below) Other Musculoskeletal History: L knee fluid removal as a child Neurological History: Reports: None Psychiatric History: Reports: None Endocrine/Metabolic History: Reports: None Hematologic History: Reports: None Immunologic History: Reports: None Oncologic (Cancer) History: Reports: None Dermatologic History: Reports: None - Infectious Disease History Infectious Disease History: Reports: None - Past Surgical History Head Surgeries/Procedures: Reports: None GI Surgical History: Reports: Appendectomy, Cholecystectomy Musculoskeletal Surgical History: Reports: Other (See Below) Social & Family History - Family History Family Medical History: No Pertinent Family History - Caffeine Use Caffeine Use: Reports: Coffee ED ROS GENERAL - Review of Systems Review Of Systems: Comprehensive ROS is negative, except as noted in HPI. ED EXAM, GENERAL - Physical Exam Exam: See Below (see dictation) Course - Vital Signs Last Recorded V/S: Last Vital Signs Temp 98.4 F 06/21/20 11:01 Pulse 75 06/21/20 11:01 Resp 17 06/21/20 11:01 BP 114/74 06/21/20 11:01 Pulse Ox 99 06/21/20 11:01 - Orders/Labs/Meds Meds: Medications Discontinued Medications Generic Name Dose Route Start Last Admin Trade Name Freq PRN Reason Stop Dose Admin Tetracaine HCl 2 ml 06/21/20 11:09 06/21/20 11:16 Tetracaine Hcl/Pf 0.5% 4 Ml Bottle EYEBOTH 06/21/20 11:10 1 applic ASDIRECTED ONE Administration Departure - Departure Time of Disposition: 11:38 Disposition: Home, Self-Care 01 Clinical Impression: Eyelid twitch - Discharge Information Referrals: PCP,None [Primary Care Provider] - Forms: ED Department Discharge Additional Instructions: The following information is given to patients seen in the emergency department who are being discharged to home. This information is to outline your options for follow-up care. We provide all patients seen in our emergency department with a follow-up referral. The need for follow-up, as well as the timing and circumstances, are variable depending upon the specifics of your emergency department visit. If you don't have a primary care physician on staff, we will provide you with a referral. We always advise you to contact your personal physician following an emergency department visit to inform them of the circumstance of the visit and for follow-up with them and/or the need for any referrals to a consulting specialist. The emergency department will also refer you to a specialist when appropriate. This referral assures that you have the opportunity for follow-up care with a specialist. All of these measure are taken in an effort to provide you with optimal care, which includes your follow-up. Under all circumstances we always encourage you to contact your private physician who remains a resource for coordinating your care. When calling for follow-up care, please make the office aware that this follow-up is from your recent emergency room visit. If for any reason you are refused follow-up, please contact the [facility] Emergency Department at and asked to speak to the emergency department charge nurse. [facility] [address] [place] [address] [place] [address] 1. Follow up with the security checker and your primary care provider as discussed. Return to the ED as needed and as discussed. Sepsis Event Note (ED) - Focused Exam Vital Signs: Vital Signs Temp Pulse Resp BP Pulse Ox 06/21/20 11:01 98.4 F 75 17 114/74 99
[2020-06-21] MEDS ORDERED: Tetracaine HCl/PF 0.5% 4 ML Bottle EYEBOTH ONE (11:09)
== END 2020-06-21 11:44 | disposition home or self-care (01) ==
LOC: MW.ED 10:42
DX: R25.3 Fasciculation (principal); Z91.018 Allergy to other foods; Z91.040 Latex allergy status; Z91.010 Allergy to peanuts; Z91.048 Other nonmedicinal substance allergy status
CPT/HCPCS: 99282; 99283

== ENCOUNTER 2020-08-17 05:56 | Emergency (ER) | payer SELFPAY ==
--- NOTE | 2020-08-17 06:28 | EDM.PDOC ---
ED HPI GENERAL MEDICAL PROBLEM - General Chief Complaint: ENT Problem Stated Complaint: COLD, COUGH, CONGESTION, EARS PLUGGED Time Seen by Provider: 08/17/20 06:16 Source of Information: Reports: Patient History Limitations: Reports: No Limitations - History of Present Illness INITIAL COMMENTS - FREE TEXT/NARRATIVE: Patient is a 25-year-old female who presents today for a cough. Patient's cough is been present for about 5 days. Patient has a cough is not productive is to the point now when she coughs her chest hurts. Patient is a chest only hurts when she coughs and is achy feeling does not radiate and is made better when she stops coughing. Patient otherwise denies any fever chills body aches decreased p.o. intake shortness of breath or other complaints. 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 Anterior Face/Facial Pain Score (Numeric/FACES): 5 - Related Data Allergies Allergy/AdvReac Type Severity Reaction Status Date / Time almond Allergy Rash Verified 08/17/20 06:05 latex Allergy Rash Verified 08/17/20 06:05 peanut Allergy Swelling Verified 08/17/20 06:05 powder in gloves Allergy Rash Uncoded 08/17/20 06:05 Home Meds: Home Meds Codeine Phosphate/Guaifenesin [Guaifen-Codeine 100-10 mg/5 ml] 5 ml PO Q6HR PRN 5 Days #100 ml 08/17/20 [Rx] Past Medical History - Past Health History Medical/Surgical History: Denies Medical/Surgical History HEENT History: Reports: None Cardiovascular History: Reports: None Respiratory History: Reports: None Gastrointestinal History: Reports: Other (See Below) Other Gastrointestinal History: intermittent epigastric pain and nausea due to gallbladder Genitourinary History: Reports: None 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 Musculoskeletal History: Reports: Other (See Below) Other Musculoskeletal History: L knee fluid removal as a child Neurological History: Reports: None Psychiatric History: Reports: None Endocrine/Metabolic History: Reports: None Hematologic History: Reports: None Immunologic History: Reports: None Oncologic (Cancer) History: Reports: None Dermatologic History: Reports: None - Infectious Disease History Infectious Disease History: Reports: None - Past Surgical History Head Surgeries/Procedures: Reports: None GI Surgical History: Reports: Appendectomy, Cholecystectomy Other GI Surgeries/Procedures: 11/2017 gallbladder removed Musculoskeletal Surgical History: Reports: Other (See Below) Social & Family History - Family History Family Medical History: No Pertinent Family History - Tobacco Use Tobacco Use Status *Q: Never Tobacco User - Caffeine Use Caffeine Use: Reports: None - Recreational Drug Use Recreational Drug Use: Yes Recreational Drug Type: Reports: Marijuana/Hashish ED ROS GENERAL - Review of Systems Review Of Systems: See Below Constitutional: Reports: No Symptoms HEENT: Reports: No Symptoms Respiratory: Reports: Cough Cardiovascular: Reports: No Symptoms Endocrine: Reports: No Symptoms GI/Abdominal: Reports: No Symptoms : Reports: No Symptoms Musculoskeletal: Reports: No Symptoms Skin: Reports: No Symptoms Neurological: Reports: No Symptoms Psychiatric: Reports: No Symptoms Hematologic/Lymphatic: Reports: No Symptoms Immunologic: Reports: No Symptoms ED EXAM, GENERAL - Physical Exam Exam: See Below Exam Limited By: No Limitations General Appearance: Alert, WD/WN, No Apparent Distress Throat/Mouth: Normal Inspection Neck: Normal Inspection, Supple, Non-Tender Respiratory/Chest: No Respiratory Distress, Lungs Clear, Normal Breath Sounds Cardiovascular: Normal Peripheral Pulses, Regular Rate, Rhythm GI/Abdominal: Normal Bowel Sounds, Soft, Non-Tender Extremities: Normal Inspection, Normal Range of Motion Neurological: Alert, Oriented, CN II-XII Intact, Normal Cognition, Normal Gait #1 Interpretation EKG Date: 08/17/20 Time: 06:28 Rhythm: NSR Rate (Beats/Min): 80 ST-T: Normal Course - Vital Signs Last Recorded V/S: Last Vital Signs Temp 97.2 F 08/17/20 06:06 Pulse 92 08/17/20 06:06 Resp 17 08/17/20 06:06 BP 104/66 08/17/20 06:06 Pulse Ox 100 08/17/20 06:06 - Orders/Labs/Meds Orders: Active Orders 24 hr Category Date Time Status EKG Documentation Completion [RC] STAT Care 08/17/20 06:24 Active Labs: Laboratory Tests 08/17/20 08/17/20 08/17/20 Range/Units 06:30 06:30 06:30 Urine HCG, Qual NEGATIVE (NEGATIVE) Urine Opiates Screen NEGATIVE (NEGATIVE) Ur Oxycodone Screen NEGATIVE (NEGATIVE) Urine Methadone Screen NEGATIVE (NEGATIVE) Ur Barbiturates Screen NEGATIVE (NEGATIVE) Ur Phencyclidine Scrn NEGATIVE (NEGATIVE) Ur Amphetamine Screen NEGATIVE (NEGATIVE) U Methamphetamines Scrn NEGATIVE (NEGATIVE) U Benzodiazepines Scrn NEGATIVE (NEGATIVE) U Cocaine Metab Screen NEGATIVE (NEGATIVE) U Marijuana (THC) Screen POSITIVE (NEGATIVE) SARS-CoV-2 RNA (CEASAR) NEGATIVE (NEGATIVE) - Re-Assessments/Exams Free Text/Narrative Re-Assessment/Exam: 08/17/20 07:29 Has bronchitis shown on x-ray. Patient has no signs of pneumonia will be sent home with a Tylenol codeine history return precautions. Departure - Departure Time of Disposition: 07:29 Disposition: Home, Self-Care 01 Condition: Good Clinical Impression: Bronchitis - Discharge Information *PRESCRIPTION DRUG MONITORING PROGRAM REVIEWED*: Not Applicable *COPY OF PRESCRIPTION DRUG MONITORING REPORT IN PATIENT NAVEED: Not Applicable Instructions: Acute Bronchitis, Adult Referrals: PCP,None [Primary Care Provider] - Forms: ED Department Discharge Additional Instructions: The following information is given to patients seen in the emergency department who are being discharged to home. This information is to outline your options for follow-up care. We provide all patients seen in our emergency department with a follow-up referral. The need for follow-up, as well as the timing and circumstances, are variable depending upon the specifics of your emergency department visit. If you don't have a primary care physician on staff, we will provide you with a referral. We always advise you to contact your personal physician following an emergency department visit to inform them of the circumstance of the visit and for follow-up with them and/or the need for any referrals to a consulting specia list. The emergency department will also refer you to a specialist when appropriate. This referral assures that you have the opportunity for follow-up care with a specialist. All of these measure are taken in an effort to provide you with optimal care, which includes your follow-up. Under all circumstances we always encourage you to contact your private physician who remains a resource for coordinating your care. When calling for follow-up care, please make the office aware that this follow-up is from your recent emergency room visit. If for any reason you are refused follow-up, please contact the [facility] Emergency Department at and asked to speak to the emergency department charge nurse. Please follow up with your primary care physician. If you do not have a primary care physician, see below: [facility] [address] [place], [place] [id number] My [facility] [address] [place] [address] You were seen today for cough. We also did a Covid test that was negative. Your x-ray shows a bronchitis. We will send you home with codezoe cough m edication that she should only take when you have the coughing. We also recommend you not drink drive or operate heavy machinery while taking that medication. If you have any other concerning signs or symptoms please return to the ED. Sepsis Event Note (ED) - Evaluation Sepsis Screening Result: No Definite Risk - Focused Exam Vital Signs: Vital Signs Temp Pulse Resp BP Pulse Ox 08/17/20 06:06 97.2 F 92 17 104/66 100 - My Orders Last 24 Hours: My Active Orders 08/17/20 06:24 EKG Documentation Completion [RC] STAT - Assessment/Plan Last 24 Hours: My Active Orders 08/17/20 06:24 EKG Documentation Completion [RC] STAT Plan: Patient is a 25-year-old female who presents today for cough for the past 5 days. Patient chest pain is reproducible on exam and likely related to her coughing. Patient lungs are clear on exam. Will obtain x-ray EKG and Covid test for patient.
--- NOTE | 2020-08-17 07:23 | CR ---
For Patients: As a result of the Century Cures Act, medical imaging exams and procedure reports are released immediately into your electronic medical record. You may view this report before your referring provider. If you have questions, please contact your health care provider. Indication: Cough, chest pain Comparison: None available. Technique: PA and Lateral views chest Findings: There mild interstitial opacities without evidence of dense consolidation, effusion, or pneumothorax. The cardiomediastinal silhouette is within normal limits. The bony thorax is grossly intact. Impression: Minimal interstitial opacities which may represent mild bronchitis changes. No dense consolidation. Dictated by Kenny Denis MD @ 08/17/2020 7:21:[address] Kenny Denis @ Aug 17 2020 7:21AM
== END 2020-08-17 07:43 | disposition home or self-care (01) ==
LOC: MW.ED 05:56
DX: J40 Bronchitis, not specified as acute or chronic (principal); Z91.040 Latex allergy status; Z91.018 Allergy to other foods; Z91.048 Other nonmedicinal substance allergy status; Z20.822 Contact with and (suspected) exposure to COVID-19
CPT/HCPCS: 71046; 71046-26; 80305-QW; 81025; 93005; 93010; 99283; 99284-25; U0002

== ENCOUNTER 2020-12-15 01:25 | Emergency (ER) | payer BC ==
[2020-12-15] MEDS ORDERED: Acetaminophen 325 MG Tab ONE (02:57)
--- NOTE | 2020-12-15 10:49 | CT ---
EXAM DATE: 12/15/20 PATIENT'S AGE: 25 Patient: RANDY BOWSER Facility: [facility] Site : 1995 Study: CT-Head WO CONT-12/15/2020 4:41:48 AM Ordering Physician: LEISA FAIRCHILD MD Final Report: INDICATION: Headache TECHNIQUE: CT head without contrast. COMPARISON: None. FINDINGS: CSF spaces: Within normal limits for age. Brain parenchyma: The sotelo-white differentiation is normal. No sign of mass, hemorrhage, or midline shift. Skull base and calvarium: The visualized paranasal sinuses and mastoid air cells demonstrate no acute or significant findings. The visualized orbits are grossly unremarkable. No skull fractures. IMPRESSION: Unremarkable noncontrast head CT. Please note that all CT scans at this facility use dose modulation, iterative reconstruction, and/or weight-based dosing when appropriate to reduce radiation dose to as low as reasonably achievable. Dictated by Allen Husain MD @ 12/15/2020 5:13:02 AM Signed by: Allen Husain MD @12/15/2020 5:13:02 AM (Electronic Signature) Report Signed by Proxy. [facility] HOSPITALJohanny
== END 2020-12-15 05:30 | disposition home or self-care (01) ==
LOC: MW.ED 01:25
DX: R51.9 Headache, unspecified (principal)
CPT/HCPCS: 70450; 70450-26; 81025; 99284-25

== ENCOUNTER 2021-01-24 09:21 | Emergency (ER) | payer BC ==
[2021-01-24] MEDS ORDERED: Sodium Chloride 0.9% 1,000 ML IV ONE (09:54)
--- NOTE | 2021-01-24 09:54 | EDM.PDOC ---
ED HPI GENERAL MEDICAL PROBLEM - General Chief Complaint: Gastrointestinal Problem Stated Complaint: MORNING SICKNESS Time Seen by Provider: 01/24/21 09:22 Source of Information: Reports: Patient History Limitations: Reports: No Limitations - History of Present Illness INITIAL COMMENTS - FREE TEXT/NARRATIVE: Patient is a 26-year-old female who is about 8 weeks per her self presents today for vomiting. States that she had very bad morning sickness with her previous for miscarriage. States that it comes in waves and she has not been able to keep anything down since last night. She feels tired and weak that she denies any vaginal bleeding or discharge or any abdominal pain but occasionally has some cramps. States she did have a confirmed IUP at outside clinic last week. She has not been given any medication by her PHLEBOTOMY MANAGER doctor yet. Abdomen Pain Score (Numeric/FACES): 7 - Related Data Allergies Allergy/AdvReac Type Severity Reaction Status Date / Time almond Allergy Rash Verified 01/24/21 09:31 latex Allergy Rash Verified 01/24/21 09:31 peanut Allergy Swelling Verified 01/24/21 09:31 powder in gloves Allergy Rash Uncoded 01/24/21 09:31 Home Meds: Home Meds . [No Known Home Meds] 12/15/20 [History] Past Medical History - Past Health History Medical/Surgical History: Denies Medical/Surgical History HEENT History: Reports: None Cardiovascular History: Reports: None Respiratory History: Reports: None Gastrointestinal History: Reports: Other (See Below) Other Gastrointestinal History: intermittent epigastric pain and nausea due to gallbladder. gallbladder removal. 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 Other PUBLISHING DIRECTOR History: x1 miscarriage Musculoskeletal History: Reports: Other (See Below) Other Musculoskeletal History: L knee fluid removal as a child Neurological History: Reports: None Psychiatric History: Reports: None Endocrine/Metabolic History: Reports: None Hematologic History: Reports: None Immunologic History: Reports: None Oncologic (Cancer) History: Reports: None Dermatologic History: Reports: None - Infectious Disease History Infectious Disease History: Reports: None - Past Surgical History Head Surgeries/Procedures: Reports: None GI Surgical History: Reports: Appendectomy, Cholecystectomy Other GI Surgeries/Procedures: 11/2017 gallbladder removed Musculoskeletal Surgical History: Reports: Other (See Below) Social & Family History - Family History Family Medical History: No Pertinent Family History - Tobacco Use Second Hand Smoke Exposure: No - Caffeine Use Caffeine Use: Reports: None - Recreational Drug Use Recreational Drug Use: No ED ROS GENERAL - Review of Systems Review Of Systems: See Below Constitutional: Reports: No Symptoms HEENT: Reports: No Symptoms Respiratory: Reports: No Symptoms Cardiovascular: Reports: No Symptoms Endocrine: Reports: No Symptoms GI/Abdominal: Reports: Nausea, Vomiting : Reports: No Symptoms Musculoskeletal: Reports: No Symptoms Skin: Reports: No Symptoms Neurological: Reports: No Symptoms Psychiatric: Reports: No Symptoms Hematologic/Lymphatic: Reports: No Symptoms Immunologic: Reports: No Symptoms ED EXAM, GENERAL - Physical Exam Exam: See Below Exam Limited By: No Limitations General Appearance: Alert, WD/WN, No Apparent Distress Eye Exam: Bilateral Eye: EOMI, PERRL Ears: Normal External Exam Respiratory/Chest: No Respiratory Distress, Lungs Clear, Normal Breath Sounds Cardiovascular: Normal Peripheral Pulses, Regular Rate, Rhythm GI/Abdominal: Normal Bowel Sounds, Soft, Non-Tender Extremities: Normal Inspection Neurological: Alert, Oriented, Normal Cognition, Normal Gait Course - Vital Signs Last Recorded V/S: Last Vital Signs Temp 97.7 F 01/24/21 09:31 Pulse 95 01/24/21 12:00 Resp 15 01/24/21 10:15 BP 112/72 01/24/21 12:00 Pulse Ox 97 01/24/21 12:00 - Orders/Labs/Meds Orders: Active Orders 24 hr Category Date Time Status Vitamin B6-pyridOXINE Med 01/24/21 10:00 Active 50 mg PO DAILY Medication Orders Pyridoxine HCl (Vitamin B6-Pyridoxine 50 Mg Tab) 50 mg PO DAILY KEI Last Admin: 01/24/21 10:14 Dose: 50 mg Documented by: BRADFORD Labs: Laboratory Tests 01/24/21 01/24/21 01/24/21 Range/Units 10:03 10:03 10:03 WBC 9.39 (4.0-11.0) K/uL RBC 4.70 (4.30-5.90) M/uL Hgb 14.4 (12.0-16.0) g/dL Hct 41.3 (36.0-46.0) % MCV 87.9 (80.0-98.0) fL MCH 30.6 (27.0-32.0) pg MCHC 34.9 (31.0-37.0) g/dL RDW Std Deviation 41.7 (28.0-62.0) fl RDW Coeff of Robert 13 (11.0-15.0) % Plt Count 313 (150-400) K/uL MPV 10.10 (7.40-12.00) fL Neut % (Auto) 79.8 (48.0-80.0) % Lymph % (Auto) 14.0 L (16.0-40.0) % [place] % (Auto) 5.9 (0.0-15.0) % Eos % (Auto) 0.1 (0.0-7.0) % Baso % (Auto) 0.2 (0.0-1.5) % Neut # (Auto) 7.5 H (1.4-5.7) K/uL Lymph # (Auto) 1.3 (0.6-2.4) K/uL [place] # (Auto) 0.6 (0.0-0.8) K/uL Eos # (Auto) 0.0 (0.0-0.7) K/uL Baso # (Auto) 0.0 (0.0-0.1) K/uL Nucleated RBC % 0.0 /100WBC Nucleated RBCs # 0 K/uL Sodium 136 (136-145) mmol/L Potassium 3.8 (3.5-5.1) mmol/L Chloride 100 (98-107) mmol/L Carbon Dioxide 21.9 (21.0-32.0) mmol/L BUN 5 L (7.0-18.0) mg/dL Creatinine 0.6 (0.6-1.0) mg/dL Est Cr Clr Drug Dosing TNP Estimated GFR (MDRD) > 60.0 ml/min Glucose 101 (74-106) mg/dL Calcium 8.9 (8.5-10.1) mg/dL Phosphorus 3.8 (2.6-4.7) mg/dL Magnesium 1.8 (1.8-2.4) mg/dL Total Bilirubin 0.4 (0.2-1.0) mg/dL AST 15 (15-37) IU/L ALT 22 (14-63) IU/L Alkaline Phosphatase 52 (46-116) U/L Total Protein 7.7 (6.4-8.2) g/dL Albumin 4.0 (3.4-5.0) g/dL Globulin 3.7 (2.6-4.0) g/dL Albumin/Globulin Ratio 1.1 (0.9-1.6) Lipase 39 L (73-393) U/L HCG, Quant 83527.0 mIU/mL Urine Color YELLOW Urine Appearance CLOUDY Urine pH 7.0 (5.0-8.0) Ur Specific [place] 1.025 (1.001-1.035) Urine Protein NEGATIVE (NEGATIVE) mg/dL Urine Glucose (UA) NEGATIVE (NEGATIVE) mg/dL Urine Ketones 40 H (NEGATIVE) mg/dL Urine Occult Blood NEGATIVE (NEGATIVE) Urine Nitrite NEGATIVE (NEGATIVE) Urine Bilirubin NEGATIVE (NEGATIVE) Urine Urobilinogen 0.2 (<2.0) EU/dL Ur Leukocyte Esterase NEGATIVE (NEGATIVE) Blood Type 01/24/21 Range/Units 10:12 WBC (4.0-11.0) K/uL RBC (4.30-5.90) M/uL Hgb (12.0-16.0) g/dL Hct (36.0-46.0) % MCV (80.0-98.0) fL MCH (27.0-32.0) pg MCHC (31.0-37.0) g/dL RDW Std Deviation (28.0-62.0) fl RDW Coeff of Robert (11.0-15.0) % Plt Count (150-400) K/uL MPV (7.40-12.00) fL Neut % (Auto) (48.0-80.0) % Lymph % (Auto) (16.0-40.0) % [place] % (Auto) (0.0-15.0) % Eos % (Auto) (0.0-7.0) % Baso % (Auto) (0.0-1.5) % Neut # (Auto) (1.4-5.7) K/uL Lymph # (Auto) (0.6-2.4) K/uL [place] # (Auto) (0.0-0.8) K/uL Eos # (Auto) (0.0-0.7) K/uL Baso # (Auto) (0.0-0.1) K/uL Nucleated RBC % /100WBC Nucleated RBCs # K/uL Sodium (136-145) mmol/L Potassium (3.5-5.1) mmol/L Chloride (98-107) mmol/L Carbon Dioxide (21.0-32.0) mmol/L BUN (7.0-18.0) mg/dL Creatinine (0.6-1.0) mg/dL Est Cr Clr Drug Dosing Estimated GFR (MDRD) ml/min Glucose (74-106) mg/dL Calcium (8.5-10.1) mg/dL Phosphorus (2.6-4.7) mg/dL Magnesium (1.8-2.4) mg/dL Total Bilirubin (0.2-1.0) mg/dL AST (15-37) IU/L ALT (14-63) IU/L Alkaline Phosphatase (46-116) U/L Total Protein (6.4-8.2) g/dL Albumin (3.4-5.0) g/dL Globulin (2.6-4.0) g/dL Albumin/Globulin Ratio (0.9-1.6) Lipase (73-393) U/L HCG, Quant mIU/mL Urine Color Urine Appearance Urine pH (5.0-8.0) Ur Specific [place] (1.001-1.035) Urine Protein (NEGATIVE) mg/dL Urine Glucose (UA) (NEGATIVE) mg/dL Urine Ketones (NEGATIVE) mg/dL Urine Occult Blood (NEGATIVE) Urine Nitrite (NEGATIVE) Urine Bilirubin (NEGATIVE) Urine Urobilinogen (<2.0) EU/dL Ur Leukocyte Esterase (NEGATIVE) Blood Type A POSITIVE Meds: Medications Generic Name Dose Route Start Last Admin Trade Name Freq PRN Reason Stop Dose Admin Pyridoxine HCl 50 mg 01/24/21 10:00 01/24/21 10:14 Vitamin B6-Pyridoxine 50 Mg Tab PO 50 mg DAILY KEI Administration Discontinued Medications Generic Name Dose Route Start Last Admin Trade Name Freq PRN Reason Stop Dose Admin Alum [place]/Mag [place]/Simeth XS 0 ml 01/24/21 12:16 15 ml/ Lidocaine HCl 5 ml PO 01/24/21 12:17 ONETIME ONE Sodium Chloride 1,000 mls @ 1,000 mls/hr 01/24/21 09:54 01/24/21 10:14 Normal Saline IV 01/24/21 10:53 1,000 mls/hr .Bolus ONE Administration Metoclopramide HCl 10 mg 01/24/21 12:08 01/24/21 12:18 Metoclopramide 10 Mg/2 Ml Sdv IVPUSH 01/24/21 12:09 10 mg ONETIME ONE Administration - Re-Assessments/Exams Free Text/Narrative Re-Assessment/Exam: 01/24/21 12:41 Patient is now tolerating p.o. and feels better. We spoke to PHLEBOTOMY MANAGER about giving patient Reglan as patient has some concerns about taking Zofran due to possible effects on the baby PHLEBOTOMY MANAGER states that you can give Reglan or Zofran if they are in ER the last resort we will Reglan and patient feels better Departure - Departure Time of Disposition: 12:42 Disposition: Home, Self-Care 01 Condition: Good Clinical Impression: Hyperemesis gravidarum - Discharge Information *PRESCRIPTION DRUG MONITORING PROGRAM REVIEWED*: Not Applicable *COPY OF PRESCRIPTION DRUG MONITORING REPORT IN PATIENT NAVEED: Not Applicable Instructions: Hyperemesis Gravidarum Referrals: Osvaldo Morrison MD [Primary Care Provider] - Forms: ED Department Discharge Additional Instructions: You were seen today for vomiting due to early in your . We have given you a medication to help out with the vomiting. We will send you a vitamin B6 to your pharmacy to help out your nausea we recommend you call your PHLEBOTOMY MANAGER doctor they may be able to give you additional medications and follow-up with them. We told you at your ultrasound showed you very early in her and cannot detect a heartbeat this may be due just to be early but we still want you to follow-up with her PHLEBOTOMY MANAGER doctor and get ultrasound done next week. The following information is given to patients seen in the emergency department who are being discharged to home. This information is to outline your options for follow-up care. We provide all patients seen in our emergency department with a follow-up referral. The need for follow-up, as well as the timing and circumstances, are variable depending upon the specifics of your emergency department visit. If you don't have a primary care physician on staff, we will provide you with a referral. We always advise you to contact your personal physician following an emergency department visit to inform them of the circumstance of the visit and for follow-up with them and/or the need for any referrals to a consulting specialist. The emergency department will also refer you to a specialist when appropriate. This referral assures that you have the opportunity for follow-up care with a specialist. All of these measure are taken in an effort to provide you with optimal care, which includes your follow-up. Under all circumstances we always encourage you to contact your private physician who remains a resource for coordinating your care. When calling for follow-up care, please make the office aware that this follow-up is from your recent emergency room visit. If for any reason you are refused follow-up, please contact the [facility] Emergency Department at and asked to speak to the emergency department charge nurse. Please follow up with your primary care physician. If you do not have a primary care physician, see below: [facility] [address] [place] [id number] [facility] [address] [place] [id number] Sepsis Event Note (ED) - Evaluation Sepsis Screening Result: No Definite Risk - Focused Exam Vital Signs: Vital Signs Temp Pulse Resp BP Pulse Ox 01/24/21 12:00 95 112/72 97 01/24/21 11:07 94 113/71 98 01/24/21 10:15 94 15 114/68 100 01/24/21 09:31 97.7 F 112 H 15 129/88 99 - My Orders Last 24 Hours: My Active Orders 01/24/21 10:00 Vitamin B6-pyridOXINE 50 mg PO DAILY - Assessment/Plan Last 24 Hours: My Active Orders 01/24/21 10:00 Vitamin B6-pyridOXINE 50 mg PO DAILY Plan: Patient is a 26-year-old female who is 6 weeks presents today for vomiting. We will obtain labs type and screen provide IV fluids and reassess.
[2021-01-24] MEDS ORDERED: Vitamin B6-pyridOXINE 50 MG Tab PO SCH (10:00)
[2021-01-24 10:55] LABS: BLOOD UREA NITROGEN,BUN 5 mg/dL (7.0-18.0); CARBON DIOXIDE,CO2 21.9 mmol/L (21.0-32.0); CHLORIDE,CL 100 mmol/L (98-107); GLUCOSE RANDOM 101 mg/dL (74-106); LIPASE 39 U/L (73-393); POTASSIUM,K 3.8 mmol/L (3.5-5.1); SODIUM,NA 136 mmol/L (136-145)
[2021-01-24] MEDS ORDERED: Metoclopramide 10 MG/2 ML SDV IVPUSH ONE (12:08)
--- NOTE | 2021-01-24 12:10 | US ---
INDICATION: Abdominal pain, confirm intrauterine TECHNIQUE: Ultrasound OB pelvis transabdominal and transvaginal. Real-time sotelo-scale imaging of the pelvis was performed. COMPARISON: None FINDINGS: There is a single intrauterine gestation. There is no evidence of heart tones. The embryo`s crown rump length measurement of 4.9 cm corresponds to a gestational age of 6 weeks 2 days with a sonographic due date of September 17, 2021. There is a somewhat enlarged irregular appearing gestational sac. There is a minimal amount of perigestational hemorrhage. The ovaries are of normal size. There are no suspicious fluid collections noted in the cul-de-sac. IMPRESSION: Single intrauterine gestation measuring 6 weeks 2 days by ultrasound measurements without definite cardiac tones which could represent intrauterine demise versus early gestational age. Consider short-term interval follow-up with repeat exam to assess for viability. There is a minimal amount of early perigestational hemorrhage appreciated. Dictated by Kenny Denis MD @ 01/24/2021 12:09:43 PM (Electronically Signed)
[2021-01-24] MEDS ORDERED: Alum Hydro/Mag Hydro/Simeth XS 15 ML, Lidocaine 2% 5 ML PO ONE ×2 (12:16)
== END 2021-01-24 12:58 | disposition home or self-care (01) ==
LOC: MW.ED 09:21
DX: O21.0 Mild hyperemesis gravidarum (principal); Z91.040 Latex allergy status; Z91.010 Allergy to peanuts; Z91.018 Allergy to other foods; Z3A.08 8 weeks gestation of pregnancy
CPT/HCPCS: 36415; 76801; 80053; 81003; 83690; 83735; 84100; 84702; 85025; 86900; 86901; 96374; 99284; A9270; J2765; J7030

== ENCOUNTER 2021-02-17 07:57 | Day surgery (SDC) | payer BC ==
[~2021-02-17 07:57] MED LIST changes: +Glycopyrrolate 0.2 MG/ML SDV ONE; +Ketorolac 30 MG/ML SDV ONE; -Lactated Ringers 1,000 ML IV SCH; +Lidocaine 2% 5 ML SDV ONE; +Midazolam 1 MG/ML 2 ML SDV ONE; +Ondansetron 4 MG/2 ML SDV ONE; +Propofol 200 MG/20 ML SDV ONE; -cefOXitin 1 GM in Premix Bag 1 BAG IV SCH; +fentaNYL 100 MCG/2 ML SDV ONE
--- NOTE | 2021-02-17 08:35 | PCM.PREANE ---
Preanesthetic Assessment - Procedure Proposed Procedure: D&C - Anesthesia/Transfusion/Family Hx Anesthesia History: Prior Anesthesia Without Reaction Family History of Anesthesia Reaction: No Transfusion History: No Prior Transfusion(s) Intubation History: Unknown - Review of Systems General: No Symptoms Pulmonary: No Symptoms Cardiovascular: No Symptoms Gastrointestinal: No Symptoms Neurological: No Symptoms Other: Reports: None - Physical Assessment NPO Status Date: 02/16/21 NPO Status Time: 22:30 Vital Signs: Last Vital Signs Temp 97.7 F 02/17/21 08:15 Pulse 102 H 02/17/21 08:15 Resp 14 02/17/21 08:15 BP 120/72 02/17/21 08:15 Pulse Ox 98 02/17/21 08:15 Height: 5 ft 2 in Weight: 45.359 kg Mental Status: Alert & Oriented x3 Airway Class: Mallampati = 1 Dentition: Reports: Normal Dentition Thyro-Mental Finger Breadths: 3 Mouth Opening Finger Breadths: 3 ROM/Head Extension: Full Lungs: Clear to Auscultation, Normal Respiratory Effort Cardiovascular: Regular Rate, Regular Rhythm - Lab Values: Laboratory Last Values Blood Type A POSITIVE 02/15/21 11:52 Antibody Screen NEGATIVE 02/15/21 11:52 - Allergies Allergies/Adverse Reactions: Allergies Allergy/AdvReac Type Severity Reaction Status Date / Time almond Allergy Rash Verified 02/15/21 13:16 latex Allergy Rash Verified 02/15/21 13:16 peanut Allergy throat Verified 02/15/21 13:17 swells powder in gloves Allergy Rash Uncoded 02/15/21 13:16 - Acknowledgements Anesthesia Type Planned: General Anesthesia Pt an Appropriate Candidate for the Planned Anesthesia: Yes Alternatives and Risks of Anesthesia Discussed w Pt/Guardian: Yes Pt/Guardian Understands and Agrees with Anesthesia Plan: Yes PreAnesthesia Questionnaire - Past Health History Medical/Surgical History: Denies Medical/Surgical History HEENT History: Reports: None Cardiovascular History: Reports: None Respiratory History: Reports: Bronchitis, Recurrent Gastrointestinal History: Reports: None Genitourinary History: Reports: None REHABILITATOR History: Reports: Spontaneous Other OB/BYN History: x1 miscarriage Musculoskeletal History: Reports: Fracture Other Musculoskeletal History: hx fx nose Neurological History: Reports: None Psychiatric History: Reports: None Endocrine/Metabolic History: Reports: None Hematologic History: Reports: None Immunologic History: Reports: None Oncologic (Cancer) History: Reports: None Dermatologic History: Reports: None - Infectious Disease History Infectious Disease History: Reports: None - Past Surgical History Head Surgeries/Procedures: Reports: None HEENT Surgical History: Reports: None Cardiovascular Surgical History: Reports: None Respiratory Surgical History: Reports: None GI Surgical History: Reports: Appendectomy, Cholecystectomy Female Surgical History: Reports: None Endocrine Surgical History: Reports: None Neurological Surgical History: Reports: None Musculoskeletal Surgical History: Reports: None Oncologic Surgical History: Reports: None Dermatological Surgical History: Reports: None - SUBSTANCE USE Tobacco Use Within Last Twelve Months: Other (See Below) Recreational Drug Type: Reports: Marijuana/Hashish Recreational Drug Last Use: 02/14/21 - HOME MEDS Home Medications: Home Meds . [No Known Home Meds] 02/15/21 [History] - CURRENT (IN HOUSE) MEDS Current Meds: Current Medications Discontinued Medications Fentanyl (Fentanyl 100 Mcg/2 Ml Sdv) Confirm Administered Dose 100 mcg .ROUTE .STK-MED ONE Stop: 02/17/21 05:55 Glycopyrrolate (Glycopyrrolate 0.2 Mg/Ml Sdv) Confirm Administered Dose 0.2 mg .ROUTE .STK-MED ONE Stop: 02/17/21 05:55 Ketorolac Tromethamine (Ketorolac 30 Mg/Ml Sdv) Confirm Administered Dose 30 mg .ROUTE .STK-MED ONE Stop: 02/17/21 05:55 Lidocaine (Lidocaine 2% 5 Ml Sdv) Confirm Administered Dose 5 ml .ROUTE .STK-MED ONE Stop: 02/17/21 05:55 Midazolam HCl (Midazolam 1 Mg/Ml 2 Ml Sdv) Confirm Administered Dose 2 mg .ROUTE .STK-MED ONE Stop: 02/17/21 05:55 Ondansetron HCl (Ondansetron 4 Mg/2 Ml Sdv) Confirm Administered Dose 4 mg .ROUTE .STK-MED ONE Stop: 02/17/21 05:55 Propofol (Propofol 200 Mg/20 Ml Sdv) Confirm Administered Dose 200 mg .ROUTE .STK-MED ONE Stop: 02/17/21 05:55
[2021-02-17] MEDS ORDERED: Acetaminophen 1,000 MG in Premix Bag 1 BAG IV PRN (09:58)
[2021-02-17] MEDS ORDERED: Ondansetron 4 MG/2 ML SDV IVPUSH PRN (09:58)
[2021-02-17] MEDS ORDERED: Metoclopramide 10 MG/2 ML SDV IVPUSH PRN (09:58)
[2021-02-17] MEDS ORDERED: Naloxone 0.4 MG/ML SDV IVPUSH PRN (09:58)
[2021-02-17] MEDS ORDERED: HYDROmorphone 1 MG/ML Syringe IVPUSH PRN (09:58)
[2021-02-17] MEDS ORDERED: Albuterol 0.083% 2.5 MG/3 ML Neb Soln NEB PRN (09:58)
--- NOTE | 2021-02-17 09:59 | PCM.OPNOTE ---
- General Post-Op/Procedure Note Date of Surgery/Procedure: 02/17/21 Operative Procedure(s): D&E Pre Op Diagnosis: Blighded ovum Post-Op Diagnosis: Same Anesthesia Technique: General LMA Primary Surgeon: Osvaldo Morrison EBL in mLs: 60 Complications: None Condition: Good
--- NOTE | 2021-02-17 10:00 | PCM.POSTAN ---
POST ANESTHESIA ASSESSMENT - MENTAL STATUS Mental Status: Somnolent - VITAL SIGNS Vital Signs: Last Vital Signs Temp 97.7 F 02/17/21 08:15 Pulse 102 H 02/17/21 08:15 Resp 14 02/17/21 08:15 BP 120/72 02/17/21 08:15 Pulse Ox 98 02/17/21 08:15 - RESPIRATORY Respiratory Status: Respiratory Rate WNL, Airway Patent, O2 Saturation Stable - CARDIOVASCULAR CV Status: Pulse Rate WNL, Blood Pressure Stable - GASTROINTESTINAL GI Status: No Symptoms - PAIN Free Text/Narrative:: Resting comfortably - POST OP HYDRATION Hydration Status: Adequate & Stable
--- NOTE | 2021-02-17 10:00 | PCM.DCSUM1 ---
Discharge Summary - Hospital Course Diagnosis: Stroke: No - Discharge Data Discharge Date: 02/17/21 Discharge Disposition: Home, Self-Care 01 Condition: Good - Referral to Home Health Primary Care Physician: PCP None - Patient Summary/Data Operative Procedure(s) Performed: D&E - Patient Instructions Diet: Usual Diet as Tolerated Activity: As Tolerated Driving: Do Not Drive Showering/Bathing: May Shower - Discharge Plan Home Medications: Home Meds . [No Known Home Meds] 02/15/21 [History] - Discharge Summary/Plan Comment DC Time >30 min.: Yes Total # of Minutes for Discharge Time: 20 - General Info Date of Service: 02/17/21 Functional Status: Reports: Pain Controlled - Review of Systems General: Reports: No Symptoms HEENT: Reports: No Symptoms Pulmonary: Reports: No Symptoms Cardiovascular: Reports: No Symptoms Gastrointestinal: Reports: No Symptoms Genitourinary: Reports: No Symptoms Musculoskeletal: Reports: No Symptoms Skin: Reports: No Symptoms Neurological: Reports: No Symptoms Psychiatric: Reports: No Symptoms - Patient Data Vitals - Most Recent: Last Vital Signs Temp 36.5 C 02/17/21 08:15 Pulse 102 H 02/17/21 08:15 Resp 14 02/17/21 08:15 BP 120/72 02/17/21 08:15 Pulse Ox 98 02/17/21 08:15 Weight - Most Recent: 45.359 kg Med Orders - Current: Current Medications Discontinued Medications Fentanyl (Fentanyl 100 Mcg/2 Ml Sdv) Confirm Administered Dose 100 mcg .ROUTE .STK-MED ONE Stop: 02/17/21 05:55 Glycopyrrolate (Glycopyrrolate 0.2 Mg/Ml Sdv) Confirm Administered Dose 0.2 mg .ROUTE .STK-MED ONE Stop: 02/17/21 05:55 Ketorolac Tromethamine (Ketorolac 30 Mg/Ml Sdv) Confirm Administered Dose 30 mg .ROUTE .STK-MED ONE Stop: 02/17/21 05:55 Lidocaine (Lidocaine 2% 5 Ml Sdv) Confirm Administered Dose 5 ml .ROUTE .STK-MED ONE Stop: 02/17/21 05:55 Midazolam HCl (Midazolam 1 Mg/Ml 2 Ml Sdv) Confirm Administered Dose 2 mg .ROUTE .STK-MED ONE Stop: 02/17/21 05:55 Ondansetron HCl (Ondansetron 4 Mg/2 Ml Sdv) Confirm Administered Dose 4 mg .ROUTE .STK-MED ONE Stop: 02/17/21 05:55 Propofol (Propofol 200 Mg/20 Ml Sdv) Confirm Administered Dose 200 mg .ROUTE .STK-MED ONE Stop: 02/17/21 05:55 - Exam General: Reports: Alert, Oriented HEENT: Reports: Pupils Equal, Pupils Reactive, EOMI, Mucous Membr. Moist/[place]: Reports: Supple Lungs: Reports: Clear to Auscultation, Normal Respiratory Effort Cardiovascular: Reports: Regular Rate, Regular Rhythm GI/Abdominal Exam: Normal Bowel Sounds, Soft, Non-Tender, No Organomegaly, No Distention, No Abnormal Bruit, No Mass, Pelvis Stable (Female) Exam: Normal External Exam, Normal Speculum Exam, Normal Bimanual Exam Rectal (Female) Exam: Normal Exam, Normal Rectal Tone Back Exam: Reports: Normal Inspection, Full Range of Motion Extremities: Normal Inspection, Normal Range of Motion, Non-Tender, No Pedal Edema, Normal Capillary Refill Skin: Reports: Warm, Dry, Intact Wound/Incisions: Reports: Healing Well Neurological: Reports: No New Focal Deficit Psy/Mental Status: Reports: Alert, Normal Affect, Normal Mood
--- NOTE | 2021-02-17 10:09 | PCM48HPAN ---
Post Anesthesia Note - EVALUATION WITHIN 48HRS OF ANESTHETIC Vital Signs in Normal Range: Yes Patient Participated in Evaluation: Yes Respiratory Function Stable: Yes Airway Patent: Yes Cardiovascular Function Stable: Yes Hydration Status Stable: Yes Pain Control Satisfactory: Yes Nausea and Vomiting Control Satisfactory: Yes Mental Status Recovered: Yes Vital Signs: Last Vital Signs Temp 97.9 F 02/17/21 09:55 Pulse 74 02/17/21 10:05 Resp 24 H 02/17/21 10:05 BP 81/41 L 02/17/21 10:05 Pulse Ox 97 02/17/21 10:05 - COMMENTS/OBSERVATIONS Free Text/Narrative:: Pt doing well post-op. VSS. No apparent anesthetic complications. Dr. Rj Pinto
[2021-02-17] MEDS ORDERED: fentaNYL 100 MCG/2 ML SDV ONE (10:31)
[2021-02-17] MEDS: fentaNYL 100 MCG/2 ML SDV IVPUSH PRN ×2 (10:37→10:43)
--- NOTE | 2021-02-18 08:26 | OR ---
SURGEON: Osvaldo Morrison MD DATE OF PROCEDURE: 02/17/2021 PREOPERATIVE DIAGNOSIS: Blighted ovum. POSTOPERATIVE DIAGNOSIS: Blighted ovum. OPERATION PERFORMED: Dilatation and evacuation. PRIMARY SURGEON: Osvaldo Morrison MD POWER OPERATOR: None. ANESTHESIA: LMA. ESTIMATED BLOOD LOSS: 65 mL. COMPLICATIONS: None. FINDING: Products of conception. INDICATIONS FOR SURGERY: The patient has confirmed blighted ovum by ultrasound and declining hCG level. The patient elected to have D and E rather than expectant management. PROCEDURE IN DETAIL: The patient was brought to the OR, properly identified. After adequate level of anesthesia, the patient was placed in lithotomy position, prepped and draped in sterile fashion as usual. The weighted speculum was placed in vagina, and the cervix was grabbed with a single-tooth tenaculum and sequentially dilated to accommodate a #8 cannula. A #8 cannula was placed in the endometrial cavity, and endometrial cavity was evacuated completely and uniformly from all products of conception. Once that was done, we checked the endometrial cavity again with 7 cannula to make sure that the products of conception were all removed. Once we ascertained that, suction was stopped and the cannula was removed. The procedure ended. Instrument and sponge counts were correct. The patient tolerated the procedure well, went to recovery room in stable general condition. ANUJA / ANDRAE /[id number]
== END 2021-02-17 11:50 | disposition home or self-care (01) ==
LOC: MW.SDS 07:57
PROVIDERS: ATTEND Obstetrics & Gynecology
DX: O02.0 Blighted ovum and nonhydatidiform mole (principal); G43.909 Migraine, unspecified, not intractable, without status migrainosus; Z91.018 Allergy to other foods; Z91.010 Allergy to peanuts; Z91.040 Latex allergy status; Z90.49 Acquired absence of other specified parts of digestive tract; Z79.899 Other long term (current) drug therapy; Z98.890 Other specified postprocedural states
CPT/HCPCS: 36415; 59812; 86850; 86900; 86901; J0131; J1885; J2250; J2704; J3010; J3490; 01965; J2405

== ENCOUNTER 2021-02-20 10:51 | Emergency (ER) | payer BC ==
[2021-02-20] MEDS ORDERED: Sodium Chloride 0.9% 2.5 ML Syringe FLUSH PRN (11:07)
[2021-02-20] MEDS ORDERED: Sodium Chloride 0.9% 10 ML Syringe FLUSH PRN (11:07)
[2021-02-20] MEDS ORDERED: Lactated Ringers 1,000 ML IV ONE (11:09)
[2021-02-20] MEDS ORDERED: Morphine 4 MG/ML VIAL IVPUSH ONE (11:12)
[2021-02-20] MEDS ORDERED: Ondansetron 4 MG/2 ML SDV IVPUSH ONE (11:12)
--- NOTE | 2021-02-20 11:17 | EDM.PDOC ---
ED HPI GENERAL MEDICAL PROBLEM - General Chief Complaint: GRAIN SPOUTER Problem Stated Complaint: CRAMPS Time Seen by Provider: 02/20/21 10:57 Source of Information: Reports: Patient - History of Present Illness INITIAL COMMENTS - FREE TEXT/NARRATIVE: 26-year-old female presents to the emergency department complaining of pain and bleeding after D&C. She had her D&C on and has persistent and increase d pain and blood clots. Today she had a blood clot that was the size of a quarter and the other when it was larger than a golf ball. She has had chills but no elina fevers. There is some pain with urination. Plus or minus back pain. No exacerbating relieving factors. Moderate symptoms Abdomen Pain Score (Numeric/FACES): 10 - Related Data Allergies Allergy/AdvReac Type Severity Reaction Status Date / Time almond Allergy Rash Verified 02/20/21 10:56 latex Allergy Rash Verified 02/20/21 10:56 peanut Allergy throat Verified 02/20/21 10:56 swells powder in gloves Allergy Rash Uncoded 02/20/21 10:56 Home Meds: Home Meds . [No Known Home Meds] 02/15/21 [History] Past Medical History - Past Health History Medical/Surgical History: Denies Medical/Surgical History HEENT History: Reports: None Cardiovascular History: Reports: None Respiratory History: Reports: Bronchitis, Recurrent Gastrointestinal History: Reports: None Genitourinary History: Reports: None GRAIN SPOUTER History: Reports: Spontaneous Other GRAIN SPOUTER History: 1x elective abotion Musculoskeletal History: Reports: Fracture Other Musculoskeletal History: hx fx nose Neurological History: Reports: None Psychiatric History: Reports: None Endocrine/Metabolic History: Reports: None Hematologic History: Reports: None Immunologic History: Reports: None Oncologic (Cancer) History: Reports: None Dermatologic History: Reports: None - Infectious Disease History Infectious Disease History: Reports: None - Past Surgical History Head Surgeries/Procedures: Reports: None HEENT Surgical History: Reports: None Cardiovascular Surgical History: Reports: None Respiratory Surgical History: Reports: None GI Surgical History: Reports: Appendectomy, Cholecystectomy Female Surgical History: Reports: None Endocrine Surgical History: Reports: None Neurological Surgical History: Reports: None Musculoskeletal Surgical History: Reports: None Oncologic Surgical History: Reports: None Dermatological Surgical History: Reports: None Social & Family History - Family History Family Medical History: No Pertinent Family History - Tobacco Use Tobacco Use Comment: Reports occasional vape use - Caffeine Use Caffeine Use: Reports: None - Recreational Drug Use Recreational Drug Use: Yes Recreational Drug Type: Reports: Marijuana/Hashish ED ROS GENERAL - Review of Systems Review Of Systems: See Below Constitutional: Reports: Chills. Denies: Fever HEENT: Reports: No Symptoms Respiratory: Reports: No Symptoms GI/Abdominal: Reports: Abdominal Pain : Reports: Dysuria Musculoskeletal: Denies: Back Pain Skin: Reports: No Symptoms Neurological: Reports: No Symptoms Psychiatric: Reports: No Symptoms ED EXAM, GENERAL - Physical Exam Exam: See Below Free Text/Narrative:: CONSTITUTIONAL: well appearing in no acute distress SKIN: Warm, dry, and intact without rash HENT: Normocephalic, atraumatic, PULMONARY: No labored breathing GASTROINTESTINAL: soft, nondistended. Mild lower abdominal tenderness. Normal bowel sounds NEUROLOGIC: normal speech, II-XII intact. light touch/5/5 power equal and symmetric in upper and lower extremities without deficit MUSCULOSKELETAL: no gross deformities, atraumatic : Pt with clot in the vaginal vault, cleared. Only very slow ooz from closed cervical os PSYCHIATRIC: normal mood and affect Course - Vital Signs Text/Narrative:: Differential diagnosis: Bleeding and cramping status post D&C, retained products of conception, enthesitis, uterine perforation, UTI, pelvic infection, other Patient presents as outlined above. Patient initial tachycardia from pain resolved with heart rates in the 80s throughout the ED course. Only small amount of oozing on exam. Ultrasound shows evidence of hematoma versus retained products of conception. Patient's laboratory work-up is reassuring. There is no significant anemia, there is no marked leukocytosis or decreased CO2 or lactic acidosis to suggest severe infection or perforation. I spoke to the patient's GRAIN SPOUTER doctor, Dr. Morrison who would like to see the patient in follow- up tomorrow or Sunday. Patient was given good return precautions Last Recorded V/S: Last Vital Signs Temp 36.6 C 02/20/21 13:40 Pulse 91 02/20/21 13:40 Resp 18 02/20/21 13:40 BP 103/68 02/20/21 13:40 Pulse Ox 99 02/20/21 13:40 - Orders/Labs/Meds Orders: Active Orders 24 hr Category Date Time Status CULTURE BLOOD [BC] Stat Lab 02/20/21 11:28 Received CULTURE BLOOD [BC] Stat Lab 02/20/21 11:39 Received Sodium Chloride 0.9% [Saline Flush] Med 02/20/21 11:07 Active 10 ml FLUSH ASDIRECTED PRN Sodium Chloride 0.9% [Saline Flush] Med 02/20/21 11:07 Active 2.5 ml FLUSH ASDIRECTED PRN Blood Culture x2 Reflex Set [OM.PC] Stat Oth 02/20/21 11:13 Ordered Saline Lock Insert [OM.PC] Stat Ot 02/20/21 11:08 Ordered Medication Orders Sodium Chloride (Sodium Chloride 0.9% 10 Ml Syringe) 10 ml FLUSH ASDIRECTED PRN PRN Reason: Keep Vein Open Last Admin: 02/20/21 12:14 Dose: 10 ml Documented by: KATI Sodium Chloride (Sodium Chloride 0.9% 2.5 Ml Syringe) 2.5 ml FLUSH ASDIRECTED PRN PRN Reason: Keep Vein Open Last Admin: 02/20/21 12:14 Dose: 2.5 ml Documented by: KATI Labs: Laboratory Tests 02/20/21 02/20/21 02/20/21 Range/Units 11:28 11:28 11:28 WBC 5.70 (4.0-11.0) K/uL RBC 4.19 L (4.30-5.90) M/uL Hgb 12.8 (12.0-16.0) g/dL Hct 37.6 (36.0-46.0) % MCV 89.7 (80.0-98.0) fL MCH 30.5 (27.0-32.0) pg MCHC 34.0 (31.0-37.0) g/dL RDW Std Deviation 44.5 (28.0-62.0) fl RDW Coeff of Robert 14 (11.0-15.0) % Plt Count 265 (150-400) K/uL MPV 10.30 (7.40-12.00) fL Neut % (Auto) 68.9 (48.0-80.0) % Lymph % (Auto) 21.6 (16.0-40.0) % [place] % (Auto) 8.4 (0.0-15.0) % Eos % (Auto) 0.7 (0.0-7.0) % Baso % (Auto) 0.4 (0.0-1.5) % Neut # (Auto) 3.9 (1.4-5.7) K/uL Lymph # (Auto) 1.2 (0.6-2.4) K/uL [place] # (Auto) 0.5 (0.0-0.8) K/uL Eos # (Auto) 0.0 (0.0-0.7) K/uL Baso # (Auto) 0.0 (0.0-0.1) K/uL Nucleated RBC % 0.0 /100WBC Nucleated RBCs # 0 K/uL INR Sodium 140 (136-145) mmol/L Potassium 3.7 (3.5-5.1) mmol/L Chloride 101 (98-107) mmol/L Carbon Dioxide 27.1 (21.0-32.0) mmol/L BUN 11 (7.0-18.0) mg/dL Creatinine 0.7 (0.6-1.0) mg/dL Est Cr Clr Drug Dosing 88.74 mL/min Estimated GFR (MDRD) > 60.0 ml/min Glucose 85 (74-106) mg/dL Lactic Acid 0.8 (0.4-2.0) mmol/L Calcium 8.6 (8.5-10.1) mg/dL Total Bilirubin 0.4 (0.2-1.0) mg/dL AST 16 (15-37) IU/L ALT 19 (14-63) IU/L Alkaline Phosphatase 58 (46-116) U/L Total Protein 7.4 (6.4-8.2) g/dL Albumin 3.9 (3.4-5.0) g/dL Globulin 3.5 (2.6-4.0) g/dL Albumin/Globulin Ratio 1.1 (0.9-1.6) HCG, Quant mIU/mL Urine Color Urine Appearance Urine pH (5.0-8.0) Ur Specific [place] (1.001-1.035) Urine Protein (NEGATIVE) mg/dL Urine Glucose (UA) (NEGATIVE) mg/dL Urine Ketones (NEGATIVE) mg/dL Urine Occult Blood (NEGATIVE) Urine Nitrite (NEGATIVE) Urine Bilirubin (NEGATIVE) Urine Urobilinogen (<2.0) EU/dL Ur Leukocyte Esterase (NEGATIVE) Urine RBC (0-2/HPF) Urine WBC (0-5/HPF) Ur Epithelial Cells (NONE-FEW) Urine Bacteria (NEGATIVE) 02/20/21 02/20/21 02/20/21 Range/Units 11:28 11:28 12:05 WBC (4.0-11.0) K/uL RBC (4.30-5.90) M/uL Hgb (12.0-16.0) g/dL Hct (36.0-46.0) % MCV (80.0-98.0) fL MCH (27.0-32.0) pg MCHC (31.0-37.0) g/dL RDW Std Deviation (28.0-62.0) fl RDW Coeff of Robert (11.0-15.0) % Plt Count (150-400) K/uL MPV (7.40-12.00) fL Neut % (Auto) (48.0-80.0) % Lymph % (Auto) (16.0-40.0) % [place] % (Auto) (0.0-15.0) % Eos % (Auto) (0.0-7.0) % Baso % (Auto) (0.0-1.5) % Neut # (Auto) (1.4-5.7) K/uL Lymph # (Auto) (0.6-2.4) K/uL [place] # (Auto) (0.0-0.8) K/uL Eos # (Auto) (0.0-0.7) K/uL Baso # (Auto) (0.0-0.1) K/uL Nucleated RBC % /100WBC Nucleated RBCs # K/uL INR 0.99 Sodium (136-145) mmol/L Potassium (3.5-5.1) mmol/L Chloride (98-107) mmol/L Carbon Dioxide (21.0-32.0) mmol/L BUN (7.0-18.0) mg/dL Creatinine (0.6-1.0) mg/dL Est Cr Clr Drug Dosing mL/min Estimated GFR (MDRD) ml/min Glucose (74-106) mg/dL Lactic Acid (0.4-2.0) mmol/L Calcium (8.5-10.1) mg/dL Total Bilirubin (0.2-1.0) mg/dL AST (15-37) IU/L ALT (14-63) IU/L Alkaline Phosphatase (46-116) U/L Total Protein (6.4-8.2) g/dL Albumin (3.4-5.0) g/dL Globulin (2.6-4.0) g/dL Albumin/Globulin Ratio (0.9-1.6) HCG, Quant 300.0 mIU/mL Urine Color YELLOW Urine Appearance CLEAR Urine pH 6.0 (5.0-8.0) Ur Specific [place] 1.020 (1.001-1.035) Urine Protein NEGATIVE (NEGATIVE) mg/dL Urine Glucose (UA) NEGATIVE (NEGATIVE) mg/dL Urine Ketones NEGATIVE (NEGATIVE) mg/dL Urine Occult Blood TRACE-INTACT H (NEGATIVE) Urine Nitrite NEGATIVE (NEGATIVE) Urine Bilirubin NEGATIVE (NEGATIVE) Urine Urobilinogen 0.2 (<2.0) EU/dL Ur Leukocyte Esterase NEGATIVE (NEGATIVE) Urine RBC 0-5 (0-2/HPF) Urine WBC 0-5 (0-5/HPF) Ur Epithelial Cells FEW (NONE-FEW) Urine Bacteria NOT SEEN (NEGATIVE) Meds: Medications Generic Name Dose Route Start Last Admin Trade Name Rosa PRN Reason Stop Dose Admin Sodium Chloride 10 ml 02/20/21 11:07 02/20/21 12:14 Sodium Chloride 0.9% 10 Ml Syringe FLUSH 10 ml ASDIRECTED PRN Administration Keep Vein Open Sodium Chloride 2.5 ml 02/20/21 11:07 02/20/21 12:14 Sodium Chloride 0.9% 2.5 Ml Syringe FLUSH 2.5 ml ASDIRECTED PRN Administration Keep Vein Open Discontinued Medications Generic Name Dose Route Start Last Admin Trade Name Freq PRN Reason Stop Dose Admin Hydrocodone Bitart/Acetaminophen 1 tab 02/20/21 13:25 02/20/21 13:36 Acetaminophen/Hydrocodone 325-5 Mg Tab PO 02/20/21 13:26 1 tab ONETIME ONE Administration Lactated Ringer's 1,000 mls @ 999 mls/hr 02/20/21 11:09 02/20/21 11:24 Ringers, Lactated IV 02/20/21 12:09 999 mls/hr .BOLUS ONE Administration Morphine Sulfate 4 mg 02/20/21 11:12 02/20/21 11:24 Morphine 4 Mg/Ml Vial IVPUSH 02/20/21 11:13 4 mg ONETIME ONE Administration Ondansetron HCl 4 mg 02/20/21 11:12 02/20/21 11:24 Ondansetron 4 Mg/2 Ml Sdv IVPUSH 02/20/21 11:13 4 mg ONETIME ONE Administration Departure - Departure Time of Disposition: 13:51 Disposition: Refer to Observation Condition: Good Clinical Impression: Vaginal bleeding - Discharge Information Instructions: Abnormal Uterine Bleeding Forms: ED Department Discharge Additional Instructions: Return for significant increase in vaginal bleeding, lightheadedness, fever, increased pain, change or worsening condition. Please follow-up with your GRAIN SPOUTER doctor tomorrow for reevaluation The following information is given to patients seen in the emergency department who are being discharged to home. This information is to outline your options for follow-up care. We provide all patients seen in our emergency department with a follow-up referral. The need for follow-up, as well as the timing and circumstances, are variable depending upon the specifics of your emergency department visit. If you don't have a primary care physician on staff, we will provide you with a referral. We always advise you to contact your personal physician following an emergency department visit to inform them of the circumstance of the visit and for follow-up with them and/or the need for any referrals to a consulting specialist. The emergency department will also refer you to a specialist when appropriate. This referral assures that you have the opportunity for follow-up care with a specialist. All of these measure are taken in an effort to provide you with optimal care, which includes your follow-up. Primary care clinics in the area: [facility] [address] [place] [id number] [facility] [address] [place] [id number] Under all circumstances we always encourage you to contact your private physician who remains a resource for coordinating your care. When calling for follow-up care, please make the office aware that this follow-up is from your recent emergency room visit. If for any reason you are refused follow-up, please contact the Emergency Department at and asked to speak to the emergency department charge nurse. Sepsis Event Note (ED) - Evaluation Sepsis Screening Result: No Definite Risk - Focused Exam Vital Signs: Vital Signs Temp Pulse Resp BP Pulse Ox 02/20/21 13:40 36.6 C 91 18 103/68 99 02/20/21 12:55 91 113/74 97 02/20/21 12:25 92 112/64 98 02/20/21 11:26 116/66 02/20/21 10:56 36.7 C 121 H 20 125/76 98 - My Orders Last 24 Hours: My Active Orders 02/20/21 11:07 Sodium Chloride 0.9% [Saline Flush] 10 ml FLUSH ASDIRECTED PRN Sodium Chloride 0.9% [Saline Flush] 2.5 ml FLUSH ASDIRECTED PRN 02/20/21 11:08 Saline Lock Insert [OM.PC] Stat - Assessment/Plan Last 24 Hours: My Active Orders 02/20/21 11:07 Sodium Chloride 0.9% [Saline Flush] 10 ml FLUSH ASDIRECTED PRN Sodium Chloride 0.9% [Saline Flush] 2.5 ml FLUSH ASDIRECTED PRN 02/20/21 11:08 Saline Lock Insert [OM.PC] Stat
[2021-02-20 12:12] LABS: BLOOD UREA NITROGEN,BUN 11 mg/dL (7.0-18.0); CARBON DIOXIDE,CO2 27.1 mmol/L (21.0-32.0); CHLORIDE,CL 101 mmol/L (98-107); GLUCOSE RANDOM 85 mg/dL (74-106); POTASSIUM,K 3.7 mmol/L (3.5-5.1); SODIUM,NA 140 mmol/L (136-145)
--- NOTE | 2021-02-20 12:36 | US ---
HISTORY: TECHNIQUE: Transvaginal pelvic ultrasound. COMPARISON: 01/24/2021. FINDINGS: Uterus measures 7.7 x 5 x 4.2 cm in size. The endometrial echo complex is heterogeneous in appearance measuring approximately 11 mm. No large vessels adjacent to the endometrium. No uterine perforation seen by ultrasound. Small amount of pelvic free fluid. Right ovary measures 2.3 x 2.2 x 2.4 cm in size. Left ovary measures 2.2 x 2.3 x 1.5 cm in size. The ovaries appear unremarkable. IMPRESSION: 1. Heterogeneous appearance of the endometrial echo complex which measures approximately 11 mm. This may indicate the presence of hemorrhage or debris though retained products conception within the canal could appear similarly. No large vessels adjacent to the endometrium. 2. No evidence of uterine perforation. 3. Small amount pelvic free fluid. No adjacent pelvic hematoma. 4. Normal appearance of the ovaries. Dictated by Michael Greene MD @ 02/20/2021 12:34:11 PM (Electronically Signed)
[2021-02-20] MEDS ORDERED: Acetaminophen/HYDROcodone 325-5 MG Tab PO ONE (13:25)
== END 2021-02-20 14:20 | disposition other institution (70) ==
LOC: MW.ED 10:51
DX: N93.9 Abnormal uterine and vaginal bleeding, unspecified (principal); Z91.040 Latex allergy status; Z91.010 Allergy to peanuts; Z91.018 Allergy to other foods; Z91.048 Other nonmedicinal substance allergy status; Z90.49 Acquired absence of other specified parts of digestive tract; Z87.59 Personal history of other complications of pregnancy, childbirth and the puerperium
CPT/HCPCS: 36415; 76856; 80053; 81001; 83605; 84702; 85025; 85610; 87040; 96374; 96375; 99284; A9270; J2270; J2405; J7120

== ENCOUNTER 2021-06-02 08:07 | Emergency (ER) | payer BC ==
[2021-06-02] MEDS ORDERED: Ondansetron 4 MG/2 ML SDV IVPUSH ONE (08:31)
[2021-06-02] MEDS ORDERED: Sodium Chloride 0.9% 1,000 ML IV ONE (08:31)
[2021-06-02 09:35] LABS: BLOOD UREA NITROGEN,BUN 12 mg/dL (7.0-18.0); CARBON DIOXIDE,CO2 27.3 mmol/L (21.0-32.0); CHLORIDE,CL 102 mmol/L (98-107); GLUCOSE RANDOM 85 mg/dL (74-106); POTASSIUM,K 3.8 mmol/L (3.5-5.1); SODIUM,NA 139 mmol/L (136-145)
== END 2021-06-02 10:24 | disposition home or self-care (01) ==
LOC: MW.ED 08:47
DX: K52.9 Noninfective gastroenteritis and colitis, unspecified (principal); Z91.018 Allergy to other foods; Z91.040 Latex allergy status; Z91.010 Allergy to peanuts; Z91.09 Other allergy status, other than to drugs and biological substances
CPT/HCPCS: 36415; 80053; 81003; 84703; 85025; 96374; 99284; J2405; J7030

== ENCOUNTER → 2021-09-21 | Emergency (ER) | payer SELFPAY ==
[~2021-09-21] MED LIST changes: +Famotidine 20 MG/2 ML SDV IVPUSH ONE; -Glycopyrrolate 0.2 MG/ML SDV ONE; +Ketorolac 30 MG/ML SDV IVPUSH ONE; -Ketorolac 30 MG/ML SDV ONE; -Lidocaine 2% 5 ML SDV ONE; -Midazolam 1 MG/ML 2 ML SDV ONE; +Morphine 4 MG/ML VIAL IVPUSH ONE; +Ondansetron 4 MG/2 ML SDV IVPUSH ONE; -Ondansetron 4 MG/2 ML SDV ONE; -Propofol 200 MG/20 ML SDV ONE; +Sodium Chloride 0.9% 1,000 ML IV ONE; -fentaNYL 100 MCG/2 ML SDV ONE
[2021-09-21 08:15] LABS: CARBON DIOXIDE,CO2 23.6 mmol/L (21.0-32.0); POTASSIUM,K 3.5 mmol/L (3.5-5.1)
== END | disposition home or self-care (01) ==
LOC: MW.ED 05:29
DX: R11.2 Nausea with vomiting, unspecified (principal); Z20.822 Contact with and (suspected) exposure to COVID-19; Z88.8 Allergy status to other drugs, medicaments and biological substances; Z88.1 Allergy status to other antibiotic agents
CPT/HCPCS: 36415; 80053; 81001; 83690; 83735; 84703; 85025; 87635; 96361; 96374; 96375; 96376; 99284; J1885; J2270; J2405; J3490; J7030; U0002

== ENCOUNTER 2021-09-22 08:05 | Emergency (ER) | payer SELFPAY ==
[2021-09-22] MEDS ORDERED: Metoclopramide 10 MG/2 ML SDV IVPUSH ONE (08:18)
[2021-09-22] MEDS ORDERED: diphenhydrAMINE 50 MG/ML SDV IVPUSH ONE (08:18)
[2021-09-22] MEDS ORDERED: Ketorolac 30 MG/ML SDV IVPUSH ONE (08:18)
[2021-09-22] MEDS ORDERED: Sodium Chloride 0.9% 1,000 ML IV ONE (08:18)
[2021-09-22] MEDS ORDERED: Dextrose 5%-0.9% NaCl with KCl 1,000 ML IV SCH (08:30)
[2021-09-22] MEDS ORDERED: D5 1/2 NS w/ 20 mEq/L KCl 1,000 ML IV SCH (08:30)
[2021-09-22 09:04] LABS: CARBON DIOXIDE,CO2 24.3 mmol/L (21.0-32.0); POTASSIUM,K 3.9 mmol/L (3.5-5.1)
== END 2021-09-22 10:44 | disposition home or self-care (01) ==
LOC: MW.ED 08:05
DX: R51.9 Headache, unspecified (principal); Z91.018 Allergy to other foods; Z91.040 Latex allergy status; Z91.010 Allergy to peanuts; Z91.048 Other nonmedicinal substance allergy status; Z90.49 Acquired absence of other specified parts of digestive tract
CPT/HCPCS: 36415; 70450; 80053; 83735; 85025; 96365; 96366; 96375; 99284; J1200; J1885; J2765; J3480

== ENCOUNTER 2021-12-09 08:17 | Emergency (ER) | payer SELFPAY | END 2021-12-09 09:58 | disposition home or self-care (01) | LOC: MW.ED 08:17 | DX: S59.901A Unspecified injury of right elbow, initial encounter (principal); Z91.010 Allergy to peanuts; Z91.040 Latex allergy status; Z91.018 Allergy to other foods; Z91.048 Other nonmedicinal substance allergy status; X50.0XXA Overexertion from strenuous movement or load, initial encounter | CPT/HCPCS: 73080-26-RT; 73080-RT; 99282; 99283 ==

== ENCOUNTER 2022-02-20 12:58 | Emergency (ER) | payer SELFPAY ==
[2022-02-20 14:08] LABS: CORONAVIRUS COVID-19 NAA NEGATIVE (NEGATIVE); INFLUENZA A NAA NEGATIVE (NEGATIVE); INFLUENZA B NAA NEGATIVE (NEGATIVE); RESPIRATORY SYNCYTIAL VIR NAA NEGATIVE (NEGATIVE)
[2022-02-20] MEDS ORDERED: Ketorolac 60 MG/2 ML SDV IM ONE (14:15)
== END 2022-02-20 14:30 | disposition home or self-care (01) ==
LOC: MW.ED 12:58
DX: J40 Bronchitis, not specified as acute or chronic (principal); Z20.822 Contact with and (suspected) exposure to COVID-19; Z91.040 Latex allergy status; Z91.018 Allergy to other foods; Z91.010 Allergy to peanuts; Z91.048 Other nonmedicinal substance allergy status
CPT/HCPCS: 0241U; 71045; 96372; 99283; J1885

== ENCOUNTER 2022-03-27 05:11 | Observation (INO) | payer SELFPAY ==
[2022-03-27] MEDS ORDERED: Morphine 4 MG/ML Syringe IVPUSH ONE (05:22)
[2022-03-27] MEDS ORDERED: Metoclopramide 10 MG/2 ML SDV IVPUSH ONE (05:22)
[2022-03-27] MEDS ORDERED: Ketorolac 30 MG/ML SDV IVPUSH ONE (05:22)
[2022-03-27] MEDS ORDERED: Sodium Chloride 0.9% 1,000 ML IV ONE ×2 (05:22→07:26)
[2022-03-27 06:41] LABS: BLOOD UREA NITROGEN,BUN 13 mg/dL (7.0-18.0); CARBON DIOXIDE,CO2 28.6 mmol/L (21.0-32.0); CHLORIDE,CL 104 mmol/L (98-107); GLUCOSE RANDOM 119 mg/dL (74-106); LIPASE 36 U/L (73-393); POTASSIUM,K 3.9 mmol/L (3.5-5.1); SODIUM,NA 140 mmol/L (136-145)
[2022-03-27 06:42] LABS: ESTIMATED GFR 123 mL/min (>60)
[2022-03-27] MEDS ORDERED: Magnesium Sulfate/Water 2 GM in Premix Bag 1 BAG IV ONE ×2 (06:44→10:30)
[2022-03-27] MEDS ORDERED: Iopamidol 755 MG/ML 500 ML Multipack Bottle IVPUSH ONE (06:45)
[2022-03-27] MEDS ORDERED: Ondansetron 4 MG/2 ML SDV IVPUSH ONE ×2 (07:26→09:30)
[2022-03-27 09:15] LABS: CARBON DIOXIDE,CO2 24.5 mmol/L (21.0-32.0); POTASSIUM,K 4.1 mmol/L (3.5-5.1)
[2022-03-27] MEDS ORDERED: Sodium Chloride 0.9% 2.5 ML Syringe FLUSH PRN (10:40)
[2022-03-27] MEDS ORDERED: Ondansetron 4 MG/2 ML SDV IVPUSH PRN (10:40)
[2022-03-27] MEDS ORDERED: Promethazine 25 MG/ML SDV IM PRN (10:40)
[2022-03-27] MEDS ORDERED: Sodium Chloride 0.9% 10 ML Syringe FLUSH PRN (10:40)
[2022-03-27 10:50] LABS: CORONAVIRUS COVID-19 NAA NEGATIVE (NEGATIVE); INFLUENZA A NAA NEGATIVE (NEGATIVE); INFLUENZA B NAA NEGATIVE (NEGATIVE); RESPIRATORY SYNCYTIAL VIR NAA NEGATIVE (NEGATIVE)
[2022-03-27] MEDS: Lactated Ringers 1,000 ML IV SCH ×3 (11:16→21:01)
[2022-03-27] MEDS: Pantoprazole 40 MG in Sodium Chloride 0.9% 10 ML IVPUSH SCH (11:17)
[2022-03-28] MEDS ORDERED: Morphine 2 MG/ML SYRINGE IVPUSH PRN (05:42)
[2022-03-28] MEDS: Lactated Ringers 1,000 ML IV SCH ×2 (05:56→11:37)
[2022-03-28 06:08] LABS: CARBON DIOXIDE,CO2 25.5 mmol/L (21.0-32.0); POTASSIUM,K 3.6 mmol/L (3.5-5.1)
[2022-03-28] MEDS ORDERED: Ketorolac 30 MG/ML SDV IVPUSH ONE (09:23)
[2022-03-28] MEDS: Sucralfate Suspension 1 GM/10 ML Cup PO SCH ×2 (09:55→11:37)
[2022-03-28] MEDS: Pantoprazole 40 MG in Sodium Chloride 0.9% 10 ML IVPUSH SCH (11:36)
== END 2022-03-28 15:10 | disposition home or self-care (01) ==
LOC: MW.ED 05:11 → MW.MS 09:34
PROVIDERS: ADMIT Internal Medicine; ATTEND Internal Medicine
DX: R11.2 Nausea with vomiting, unspecified (principal); E86.0 Dehydration; R10.84 Generalized abdominal pain; F12.90 Cannabis use, unspecified, uncomplicated; R00.2 Palpitations; J40 Bronchitis, not specified as acute or chronic; Z79.899 Other long term (current) drug therapy; Z91.040 Latex allergy status; Z91.018 Allergy to other foods; Z90.49 Acquired absence of other specified parts of digestive tract; Z98.890 Other specified postprocedural states; Z20.822 Contact with and (suspected) exposure to COVID-19
CPT/HCPCS: 0241U; 36415; 74177; 80048; 80053; 80305; 80307; 81003; 83605; 83690; 83735; 84703; 85025; 87040; 87338; A9270; C9113; J1885; J2270; J2405; J2550; J2765; J3475; J3490; J7030; J7120; Q9967

== ENCOUNTER 2022-03-29 17:10 | Emergency (ER) | payer SELFPAY ==
[2022-03-29] MEDS ORDERED: Sodium Chloride 0.9% 10 ML Syringe FLUSH PRN (18:20)
[2022-03-29] MEDS ORDERED: Sodium Chloride 0.9% 1,000 ML IV ONE (18:20)
[2022-03-29] MEDS ORDERED: Sodium Chloride 0.9% 2.5 ML Syringe FLUSH PRN (18:20)
[2022-03-29 19:55] LABS: BLOOD UREA NITROGEN,BUN 6 mg/dL (7.0-18.0); CARBON DIOXIDE,CO2 28.2 mmol/L (21.0-32.0); CHLORIDE,CL 106 mmol/L (98-107); GLUCOSE RANDOM 90 mg/dL (74-106); POTASSIUM,K 3.7 mmol/L (3.5-5.1); SODIUM,NA 141 mmol/L (136-145)
[2022-03-29 20:03] LABS: ESTIMATED GFR 123 mL/min (>60)
== END 2022-03-29 20:28 | disposition home or self-care (01) ==
LOC: MW.ED 17:10
DX: R00.2 Palpitations (principal); Z91.018 Allergy to other foods; Z91.040 Latex allergy status; Z91.010 Allergy to peanuts; Z91.048 Other nonmedicinal substance allergy status
CPT/HCPCS: 36415; 80053; 80305; 80307; 83735; 84484; 84703; 85025; 93005; 96360; 99285; J7030

== ENCOUNTER 2022-04-20 08:51 | Day surgery (SDC) | payer OTHER ==
[~2022-04-20 08:51] MED LIST changes: -Famotidine 20 MG/2 ML SDV IVPUSH ONE; -Ketorolac 30 MG/ML SDV IVPUSH ONE; +Lactated Ringers 1,000 ML IV SCH; -Morphine 4 MG/ML VIAL IVPUSH ONE; -Ondansetron 4 MG/2 ML SDV IVPUSH ONE; +Propofol 200 MG/20 ML SDV ONE; -Sodium Chloride 0.9% 1,000 ML IV ONE; +Sodium Chloride 0.9% 10 ML Syringe FLUSH PRN; +Sodium Chloride 0.9% 2.5 ML Syringe FLUSH PRN; +Sodium Chloride 0.9% 20 ML SDV IV PRN
[2022-04-20] MEDS ORDERED: Propofol 200 MG/20 ML SDV ONE ×2 (10:00→10:08)
== END 2022-04-20 11:18 | disposition home or self-care (01) ==
LOC: MW.SDS 08:51
PROVIDERS: ATTEND Surgery
DX: R10.9 Unspecified abdominal pain (principal); E55.9 Vitamin D deficiency, unspecified; K21.9 Gastro-esophageal reflux disease without esophagitis; F41.9 Anxiety disorder, unspecified; J40 Bronchitis, not specified as acute or chronic; F17.210 Nicotine dependence, cigarettes, uncomplicated; Z91.040 Latex allergy status; Z91.018 Allergy to other foods; Z79.899 Other long term (current) drug therapy; Z98.890 Other specified postprocedural states
CPT/HCPCS: 43239; 81025; J2704; J7120

== ENCOUNTER 2022-07-04 08:19 | Emergency (ER) | payer OTHER ==
[2022-07-04] MEDS ORDERED: Ibuprofen 600 MG Tab PO ONE (08:35)
== END 2022-07-04 09:40 | disposition home or self-care (01) ==
LOC: MW.ED 08:19
DX: M25.531 Pain in right wrist (principal); Z91.018 Allergy to other foods; Z91.010 Allergy to peanuts; Z91.040 Latex allergy status; Z91.048 Other nonmedicinal substance allergy status
CPT/HCPCS: 73110; 99283; A9270

== ENCOUNTER 2022-08-23 06:24 | Emergency (ER) | payer SELFPAY ==
[2022-08-23] MEDS ORDERED: LORazepam 0.5 MG Tab PO ONE (06:31)
== END 2022-08-23 08:17 | disposition home or self-care (01) ==
LOC: MW.ED 06:24
DX: F41.9 Anxiety disorder, unspecified (principal); K21.9 Gastro-esophageal reflux disease without esophagitis; Z91.040 Latex allergy status; Z91.010 Allergy to peanuts; Z91.048 Other nonmedicinal substance allergy status; Z91.018 Allergy to other foods
CPT/HCPCS: 93005; 99283; A9270

== ENCOUNTER 2022-09-19 10:15 | Emergency (ER) | payer SELFPAY ==
[2022-09-19 10:32] LABS: APPEARANCE,URINE CLEAR; BILIRUBIN,URINE NEGATIVE (NEGATIVE); COLOR,URINE YELLOW; GLUCOSE,URINE NEGATIVE (NEGATIVE); KETONES,URINE NEGATIVE (NEGATIVE); LEUKOCYTE ESTERASE,URINE NEGATIVE (NEGATIVE); NITRITE,URINE NEGATIVE (NEGATIVE); OCCULT BLOOD,URINE NEGATIVE (NEGATIVE); PROTEIN,URINE NEGATIVE (NEGATIVE); UROBILINOGEN,URINE 0.2 EU/dL (<2.0)
[2022-09-19 11:40] LABS: CANDIDA DNA PROBE POSITIVE (NEGATIVE); GARDNERELLA DNA PROBE NEGATIVE (NEGATIVE); TRICHOMONAS DNA PROBE NEGATIVE (NEGATIVE)
[2022-09-19 12:13] LABS: C. TRACHOMATIS BY PCR NOT DETECTED; N. GONORRHOEAE BY PCR NOT DETECTED
== END 2022-09-19 11:03 | disposition home or self-care (01) ==
LOC: MW.ED 10:15
DX: B37.49 Other urogenital candidiasis (principal); Z91.018 Allergy to other foods; Z91.040 Latex allergy status; Z91.09 Other allergy status, other than to drugs and biological substances
CPT/HCPCS: 81003; 81025; 87480; 87491; 87510; 87591; 87660; 99283

== ENCOUNTER 2022-10-01 07:19 | Emergency (ER) | payer SELFPAY ==
[2022-10-01] MEDS ORDERED: LORazepam 2 MG/ML SDV IVPUSH ONE (07:28)
[2022-10-01] MEDS ORDERED: Lactated Ringers 1,000 ML IV ONE (07:28)
[2022-10-01] MEDS ORDERED: Sodium Chloride 0.9% 2.5 ML Syringe FLUSH PRN (07:28)
[2022-10-01] MEDS ORDERED: Sodium Chloride 0.9% 10 ML Syringe FLUSH PRN (07:28)
[2022-10-01 08:07] LABS: BASOPHILS ABSOLUTE AUTO 0.1 K/uL (0.0-0.1); BASOPHILS PERCENT AUTO 0.7 % (0.0-1.5); EOSINOPHILS ABSOLUTE AUTO 0.1 K/uL (0.0-0.7); EOSINOPHILS PERCENT AUTO 1.1 % (0.0-7.0); HEMATOCRIT 40.9 % (36.0-46.0); LYMPHOCYTES ABSOLUTE AUTO 2.9 K/uL (0.6-2.4); LYMPHOCYTES PERCENT AUTO 38.7 % (16.0-40.0); MEAN CORPUSCULAR HEMOGLOBIN 30.2 pg (27.0-32.0); MEAN CORPUSCULAR HGB CONC 34.2 g/dL (31.0-37.0); MEAN CORPUSCULAR VOLUME 88.3 fL (80.0-98.0); MONOCYTES ABSOLUTE AUTO 0.6 K/uL (0.0-0.8); MONOCYTES PERCENT AUTO 8.4 % (0.0-15.0); NEUTROPHILS ABSOLUTE AUTO 3.8 K/uL (1.4-5.7); NEUTROPHILS PERCENT AUTO 51.1 % (48.0-80.0); NRBC ABSOLUTE 0 K/uL; PLATELET COUNT,PLT 275 K/uL (150-400); RED BLOOD CELL COUNT 4.63 M/uL (4.30-5.90); WHITE BLOOD CELL COUNT,WBC 7.42 K/uL (4.0-11.0)
[2022-10-01 08:21] LABS: INR 1.01 (0.86-1.11)
[2022-10-01 08:34] LABS: A/G RATIO 1.2 (0.9-1.6); ALANINE AMINOTRANSFERASE,ALT 18 IU/L (14-63); ALBUMIN 3.8 g/dL (3.4-5.0); ALKALINE PHOSPHATASE 50 U/L (46-116); ASPARTATE AMNIOTRANSFERASE,AST 16 IU/L (15-37); BILIRUBIN TOTAL 0.3 mg/dL (0.2-1.0); BLOOD UREA NITROGEN,BUN 8 mg/dL (7.0-18.0); CALCIUM 8.9 mg/dL (8.5-10.1); CARBON DIOXIDE,CO2 24.1 mmol/L (21.0-32.0); CHLORIDE,CL 106 mmol/L (98-107); CREATININE 0.7 mg/dL (0.6-1.0); EST CRCL DRUG DOSING (CG) 96.77 mL/min; ESTIMATED GFR 123 mL/min (>60); GLUCOSE RANDOM 81 mg/dL (74-106); MAGNESIUM 1.7 mg/dL (1.8-2.4); POTASSIUM,K 4.1 mmol/L (3.5-5.1); PROTEIN TOTAL,TP 6.9 g/dL (6.4-8.2); SODIUM,NA 143 mmol/L (136-145)
[2022-10-01] MEDS ORDERED: Magnesium Oxide 400 MG Tab PO ONE (08:46)
[2022-10-01] MEDS ORDERED: Ketorolac 30 MG/ML SDV IVPUSH ONE (08:50)
[2022-10-01] MEDS ORDERED: Sodium Chloride 0.9% 1,000 ML IV ONE (10:19)
[2022-10-01] MEDS ORDERED: Ondansetron 4 MG/2 ML SDV IVPUSH ONE (10:20)
[2022-10-01] MEDS ORDERED: LORazepam 1 MG Tab PO ONE (12:30)
== END 2022-10-01 12:56 | disposition home or self-care (01) ==
LOC: MW.ED 07:19
DX: F41.9 Anxiety disorder, unspecified (principal); R07.9 Chest pain, unspecified; Z91.09 Other allergy status, other than to drugs and biological substances; Z91.040 Latex allergy status; Z91.048 Other nonmedicinal substance allergy status; Z91.010 Allergy to peanuts
CPT/HCPCS: 36415; 80053; 83735; 84484; 84703; 85025; 85379; 85610; 93005; 96361; 96374; 96375; 99285; A9270; J1885; J2060; J2405; J3490; J7030; J7120; 93010; 99283